=== PATIENT | female | born 1945 | race Caucasian/White ===

== ENCOUNTER → 2016-03-20 | Outpatient (CLI) | payer OTHER, BC ==
[2016-03-20 18:01] LABS: URINE APPEARANCE CLEAR (CLEAR); URINE BILIRUBIN NEG (NEG); URINE COLOR YELLOW; URINE NITRITE NEG (NEG); URINE PH 5.5 (4.5-7.5); URINE SPECIFIC GRAVITY 1.007 (1.000-1.030); UROBILINOGEN NEG (NEG)
[2016-03-20 18:03] LABS: MANUAL MICROSCOPIC REQUIRED? NO; REVIEW REQ? YES
== END | disposition home or self-care (01) ==
LOC: C.LABMFLN 10:59
PROVIDERS: ATTEND Family Medicine
DX: R35.0 Frequency of micturition (principal); R30.0 Dysuria

== ENCOUNTER → 2016-06-19 | Outpatient (CLI) | payer OTHER, BC ==
[2016-06-19 13:37] LABS: URINE APPEARANCE CLEAR (CLEAR); URINE BILIRUBIN NEG (NEG); URINE COLOR YELLOW; URINE NITRITE NEG (NEG); URINE SPECIFIC GRAVITY 1.009 (1.000-1.030); UROBILINOGEN NEG (NEG)
[2016-06-19 13:41] LABS: MANUAL MICROSCOPIC REQUIRED? NO; REVIEW REQ? NO
== END | disposition home or self-care (01) ==
LOC: C.LABMFLN 13:39
PROVIDERS: ATTEND Family Medicine
DX: R35.0 Frequency of micturition (principal)

== ENCOUNTER → 2016-08-01 | Outpatient (CLI) | payer OTHER, BC ==
[2016-08-01 18:11] LABS: HEMATOCRIT 25.8 % (37-47)
== END | disposition home or self-care (01) ==
LOC: C.LABMFLN 13:18
PROVIDERS: ATTEND Family Medicine
DX: D50.9 Iron deficiency anemia, unspecified (principal); K75.81 Nonalcoholic steatohepatitis (NASH)

== ENCOUNTER → 2016-08-14 | Outpatient (CLI) | payer OTHER, BC ==
[2016-08-14 13:05] LABS: HEMATOCRIT 28.2 % (37-47)
== END | disposition home or self-care (01) ==
LOC: C.LABMFLN 08:58
PROVIDERS: ATTEND Family Medicine
DX: D50.9 Iron deficiency anemia, unspecified (principal); K75.81 Nonalcoholic steatohepatitis (NASH)

== ENCOUNTER → 2016-09-10 | Outpatient (CLI) | payer OTHER, BC ==
[2016-09-10 13:27] LABS: HEMATOCRIT 28.4 % (37-47)
[2016-09-10 13:41] LABS: BLOOD UREA NITROGEN 12 mg/dl (7-18); BUN/CREATININE RATIO 15.8 (10-20); CALCIUM 8.5 mg/dl (8.5-10.1); CARBON DIOXIDE 26 mmol/L (21-32); CHLORIDE 108 mmol/L (98-107); CREATININE 0.76 mg/dl (0.60-1.20); GLUCOSE 100 mg/dl (70-99); POTASSIUM 3.5 mmol/L (3.5-5.1); SODIUM 141 mmol/L (136-145)
== END | disposition home or self-care (01) ==
LOC: C.LABMFLN 08:38
PROVIDERS: ATTEND Family Medicine
DX: D64.9 Anemia, unspecified (principal); D50.9 Iron deficiency anemia, unspecified; K75.81 Nonalcoholic steatohepatitis (NASH)

== ENCOUNTER → 2016-10-31 | Outpatient (CLI) | payer OTHER, BC ==
[2016-10-31 18:26] LABS: INR 1.7 (0.9-1.1); PARTIAL THROMBOPLASTIN RATIO 1.2; PROTHROMBIN TIME (PATIENT) 18.3 SECONDS (9.0-12.0)
[2016-10-31 18:53] LABS: ANISOCYTOSIS PRESENT; BASO % 0.2 %; BASO ABS # 0.03 K/uL (0-0.2); COMPLETE YES; EOS % 1.9 %; HEMATOCRIT 28.2 % (37-47); HYPOCHROMIA PRESENT; IG% 0.7 %; LYMPH % 4.7 %; LYMPH ABS # 0.64 K/uL (1.2-3.4); MEAN CELL VOLUME 90.1 fL (80-100); MEAN CORPUSCULAR HEMOGLOBIN 28.1 pg (25-34); MEAN CORPUSCULAR HGB CONC 31.2 g/dl (32-36); NEUT % 81.5 %; PLATELET COUNT 67 K/uL (130-400); PLT ESTIMATE DECREASED; POLYCHROMASIA 1+; RED BLOOD COUNT 3.13 M/uL (4.2-5.4); SCHISTOCYTES OCCASIONAL; WHITE BLOOD COUNT 13.58 K/uL (4.8-10.8)
[2016-10-31 19:17] LABS: ALB/GLOB RATIO 0.9 (0.9-2); ALKALINE PHOSPHATASE 196 U/L (45-117); ALT/SGPT 64 U/L (12-78); AST/SGOT 58 U/L (15-37); BLOOD UREA NITROGEN 13 mg/dl (7-18); BUN/CREATININE RATIO 11.7 (10-20); CALCIUM 9.1 mg/dl (8.5-10.1); CARBON DIOXIDE 34 mmol/L (21-32); CHLORIDE 102 mmol/L (98-107); GLUCOSE 49 mg/dl (70-99); POTASSIUM 3.8 mmol/L (3.5-5.1); SODIUM 139 mmol/L (136-145)
== END | disposition home or self-care (01) ==
LOC: C.LABMFLN 12:46
PROVIDERS: ATTEND Family Medicine
DX: E11.8 Type 2 diabetes mellitus with unspecified complications (principal); E03.9 Hypothyroidism, unspecified; K57.81 Diverticulitis of intestine, part unspecified, with perforation and abscess with bleeding; D50.9 Iron deficiency anemia, unspecified

== ENCOUNTER → 2016-11-18 | Outpatient (CLI) | payer OTHER, BC ==
--- NOTE | 2016-11-20 14:35 | CODING QUERY NO DIAGNOSIS ---
: 1945 TREATMENT RENDERED WITHOUT A DIAGNOSIS To promote full compliance with coding requirements relating to patient care, physician participation is requested in all cases of funnel setter uncertainty. Please assist us with providing a copy of the original, signed physician order including diagnoses for the following services that were rendered on 11/18/16: *SODIUM Thank you [facility] Information Management Once completed, please kindly fax back to [phone] For questions please call [phone]
== END | disposition home or self-care (01) ==
LOC: C.LABSPEC 14:20
PROVIDERS: ATTEND Family Medicine
DX: K75.81 Nonalcoholic steatohepatitis (NASH) (principal); K74.60 Unspecified cirrhosis of liver; R18.8 Other ascites

== ENCOUNTER → 2017-01-26 | Outpatient (CLI) | payer OTHER, BC ==
[2017-01-26 13:00] LABS: HEMATOCRIT 28.5 % (37-47); MEAN CELL VOLUME 94.7 fL (80-100); MEAN CORPUSCULAR HEMOGLOBIN 30.9 pg (25-34); MEAN CORPUSCULAR HGB CONC 32.6 g/dl (32-36); RED BLOOD COUNT 3.01 M/uL (4.2-5.4); WHITE BLOOD COUNT 11.22 K/uL (4.8-10.8)
[2017-01-26 13:04] LABS: MEAN PLATELET VOLUME 10.2 fL (7.4-10.4); PLATELET COUNT 91 K/uL (130-400)
[2017-01-26 13:46] LABS: ESTIMATED AVERAGE GLUCOSE 131 mg/dl; HA1C FLAG Normal (Normal)
[2017-01-26 14:13] LABS: ALT/SGPT 33 U/L (12-78); AST/SGOT 36 U/L (15-37); BLOOD UREA NITROGEN 19 mg/dl (7-18); BUN/CREATININE RATIO 20.5 (10-20); CALCIUM 8.9 mg/dl (8.5-10.1); CARBON DIOXIDE 28 mmol/L (21-32); CHLORIDE 100 mmol/L (98-107); CREATININE 0.93 mg/dl (0.60-1.20); GLUCOSE 144 mg/dl (70-99); POTASSIUM 3.5 mmol/L (3.5-5.1); SODIUM 136 mmol/L (136-145)
[2017-01-26 14:14] LABS: ALB/GLOB RATIO 0.7 (0.9-2); ALKALINE PHOSPHATASE 227 U/L (45-117)
== END | disposition home or self-care (01) ==
LOC: C.LABMFLN 09:16
PROVIDERS: ATTEND Family Medicine
DX: E78.00 Pure hypercholesterolemia, unspecified (principal); E03.9 Hypothyroidism, unspecified; E27.40 Unspecified adrenocortical insufficiency; D64.9 Anemia, unspecified; K72.90 Hepatic failure, unspecified without coma

== ENCOUNTER → 2017-03-11 | Outpatient (CLI) | payer OTHER, BC ==
[2017-03-11 17:48] LABS: HEMOGLOBIN 8.6 g/dL (12.0-16.0); MEAN CELL VOLUME 92.8 fL (80-100); MEAN CORPUSCULAR HEMOGLOBIN 29.6 pg (25-34); MEAN CORPUSCULAR HGB CONC 31.9 g/dl (32-36); RED CELL DISTRIBUTION WIDTH CV 17.9 % (11.5-14.5); RED CELL DISTRIBUTION WIDTH SD 61.4 fL (36.4-46.3); WHITE BLOOD COUNT 7.89 K/uL (4.8-10.8)
[2017-03-11 18:14] LABS: BASO % 0.3 %; BASO ABS # 0.02 K/uL (0-0.2); EOS % 1.5 %; EOS ABS # 0.12 K/uL (0-0.5); IG# 0.07 K/uL (0.00-0.02); LYMPH % 7.9 %; LYMPH ABS # 0.62 K/uL (1.2-3.4); MEAN PLATELET VOLUME 10.1 fL (7.4-10.4); MONO % 10.8 %; MONO ABS # 0.85 K/uL (0.11-0.59); NEUT % 78.6 %; NEUT ABS # 6.21 K/uL (1.4-6.5); PLATELET COUNT 69 K/uL (130-400)
[2017-03-11 18:47] LABS: ALBUMIN 2.5 gm/dl (3.4-5.0); ALKALINE PHOSPHATASE 771 U/L (45-117); ALT/SGPT 42 U/L (12-78); AST/SGOT 32 U/L (15-37); BLOOD UREA NITROGEN 16 mg/dl (7-18); CALCIUM 9.1 mg/dl (8.5-10.1); CARBON DIOXIDE 28 mmol/L (21-32); CREATININE 1.06 mg/dl (0.60-1.20); GLUCOSE 508 mg/dl (70-99); POTASSIUM 4.5 mmol/L (3.5-5.1); SODIUM 132 mmol/L (136-145)
== END | disposition home or self-care (01) ==
LOC: C.LABMFLN 16:01
PROVIDERS: ATTEND Family Medicine
DX: E78.00 Pure hypercholesterolemia, unspecified (principal); E03.9 Hypothyroidism, unspecified; D64.9 Anemia, unspecified; K72.90 Hepatic failure, unspecified without coma

== ENCOUNTER → 2017-09-08 | Outpatient (CLI) | payer OTHER, BC ==
[2017-09-08 17:59] LABS: MEAN CORPUSCULAR HGB CONC 30.8 g/dl (32-36)
[2017-09-08 18:15] LABS: ALBUMIN 2.4 gm/dl (3.4-5.0); ALKALINE PHOSPHATASE 190 U/L (45-117); ALT/SGPT 27 U/L (12-78); AST/SGOT 44 U/L (15-37); BLOOD UREA NITROGEN 16 mg/dl (7-18); CALCIUM 8.6 mg/dl (8.5-10.1); CARBON DIOXIDE 28 mmol/L (21-32); CREATININE 0.83 mg/dl (0.60-1.20); GLUCOSE 137 mg/dl (70-99); POTASSIUM 3.8 mmol/L (3.5-5.1); SODIUM 139 mmol/L (136-145); TOTAL PROTEIN 5.7 gm/dl (6.4-8.2)
[2017-09-08 18:29] LABS: BASO % 0.2 %; BASO ABS # 0.01 K/uL (0-0.2); EOS % 2.4 %; EOS ABS # 0.15 K/uL (0-0.5); HEMATOCRIT 30.8 % (37-47); HEMOGLOBIN 9.4 g/dL (12.0-16.0); IG# 0.03 K/uL (0.00-0.02); LYMPH % 11.3 %; LYMPH ABS # 0.72 K/uL (1.2-3.4); MEAN CELL VOLUME 87.7 fL (80-100); MEAN CORPUSCULAR HEMOGLOBIN 26.8 pg (25-34); MONO % 7.2 %; MONO ABS # 0.46 K/uL (0.11-0.59); NEUT % 78.4 %; NEUT ABS # 5.01 K/uL (1.4-6.5); PLATELET COUNT 46 K/uL (130-400); RED CELL DISTRIBUTION WIDTH SD 66.1 fL (36.4-46.3); WHITE BLOOD COUNT 6.38 K/uL (4.8-10.8)
== END | disposition home or self-care (01) ==
LOC: C.LABMFLN 12:28
PROVIDERS: ATTEND Family Medicine
DX: D50.9 Iron deficiency anemia, unspecified (principal); K72.90 Hepatic failure, unspecified without coma; K75.81 Nonalcoholic steatohepatitis (NASH); E10.65 Type 1 diabetes mellitus with hyperglycemia; R60.0 Localized edema; M85.80 Other specified disorders of bone density and structure, unspecified site

== ENCOUNTER → 2017-10-07 | Outpatient (CLI) | payer OTHER, BC ==
[2017-10-07 12:54] LABS: MEAN CORPUSCULAR HGB CONC 32.6 g/dl (32-36)
[2017-10-07 13:04] LABS: HEMATOCRIT 33.4 % (37-47); HEMOGLOBIN 10.9 g/dL (12.0-16.0); MEAN CELL VOLUME 97.1 fL (80-100); MEAN CORPUSCULAR HEMOGLOBIN 31.7 pg (25-34); RED CELL DISTRIBUTION WIDTH CV 21.3 % (11.5-14.5); RED CELL DISTRIBUTION WIDTH SD 75.5 fL (36.4-46.3); WHITE BLOOD COUNT 5.21 K/uL (4.8-10.8)
[2017-10-07 13:12] LABS: BLOOD UREA NITROGEN 15 mg/dl (7-18); CALCIUM 8.1 mg/dl (8.5-10.1); CARBON DIOXIDE 26 mmol/L (21-32); CREATININE 0.98 mg/dl (0.60-1.20); GLUCOSE 344 mg/dl (70-99); POTASSIUM 3.5 mmol/L (3.5-5.1); SODIUM 137 mmol/L (136-145)
[2017-10-07 13:23] LABS: PLATELET COUNT 56 K/uL (130-400)
[2017-10-07 13:26] LABS: BASO % 0.6 %; BASO ABS # 0.03 K/uL (0-0.2); EOS % 6.1 %; EOS ABS # 0.32 K/uL (0-0.5); IG# 0.03 K/uL (0.00-0.02); LYMPH % 14.6 %; LYMPH ABS # 0.76 K/uL (1.2-3.4); MONO % 10.9 %; MONO ABS # 0.57 K/uL (0.11-0.59); NEUT % 67.2 %
== END | disposition home or self-care (01) ==
LOC: C.LABMFLN 09:01
PROVIDERS: ATTEND Family Medicine
DX: D64.9 Anemia, unspecified (principal); K72.90 Hepatic failure, unspecified without coma; E55.9 Vitamin D deficiency, unspecified; M85.80 Other specified disorders of bone density and structure, unspecified site; E10.65 Type 1 diabetes mellitus with hyperglycemia

== ENCOUNTER 2019-07-24 22:07 | Inpatient (IN) ==
[2019-07-24] MEDS ORDERED: HYDROCORTISONE SOD SUCCINATE 100 MG/2 ML VIAL IV STA (22:20)
[2019-07-24 22:34] LABS: Appearance Urine Clear (Clear); Bacteria Urine Automated Negative (Negative); Bilirubin Urine Negative (Negative); Blood Urine 1+ (Negative); Color Urine Dark Yellow; Glucose Urine UA Negative (Negative); Ketones Urine Trace (Negative); Leukocyte Esterase Urine Negative (Negative); Nitrite Urine Negative (Negative); Protein Urine Negative (Negative); Specific Gravity Urine 1.016 (1.000-1.030); Urobilinogen Urine Negative (Negative); pH Urine 5.5 (4.5-7.5)
--- NOTE | 2019-07-24 22:34 | Emergency Department Note ---
History of Present Illness General Chief complaint: Illness Time Seen by Provider: 07/24/19 22:13 Source: patient and EMS Limitations: altered mental status History of Present Illness Provider complaint: Lethargy Onset (ago): day(s) Location: head Pain Consistency: + constant Quality: + other (Lethargic) Relieved By: + none Associated symptoms: no fever/chills and no nausea/vomiting This is a 73-year-old female brought in by EMS for lethargy. She is at [facility] and has been noted to be lethargic all day. They were concerned that she did not have a bowel movement because she is on lactulose for liver disease. There is no history of trauma. She has had no reported fevers or vomiting. The patient will answer some questions but largely ignores my questions. When I asked her how she felt she said she felt okay. She did not answer any further questions afterwards. Limited history due to the patient's altered mental status. Home Medications Home Medications Medication Instructions Recorded Confirmed Type blood sugar diagnostic #450 ea 08/05/18 07/24/19 Rx escitalopram oxalate 10 mg tablet 15 mg PO DAILY #135 tab 08/05/18 07/24/19 Rx fluticasone propionate 50 2 sprays INTRANASAL DAILY #18.2 gm 08/05/18 07/24/19 Rx mcg/actuation nasal spray,suspension rifaximin 550 mg tablet 550 mg PO BID #180 tab 08/27/18 07/24/19 Rx levothyroxine 50 mcg tablet 50 mcg PO DAILY #90 tab 09/09/18 07/24/19 Rx pantoprazole 40 mg tablet,delayed 40 mg PO BID #180 tab 10/27/18 07/24/19 Rx release cholecalciferol (vitamin D3) 50 2,000 units PO DAILY 10/29/18 07/24/19 History mcg (2,000 unit) capsule lactulose 10 gram/15 mL oral 40 ml PO QID btl 12/30/18 07/24/19 History solution pen needle, diabetic 31 gauge x #100 ea 01/17/19 07/24/19 Rx 3/16" sub-q insulin device, 40 unit #30 ea 02/10/19 07/24/19 Rx Oxygen Home #1 ea 07/07/19 07/24/19 Rx ferrous sulfate 325 mg (65 mg 325 mg PO BID #60 tab 07/07/19 07/24/19 Rx iron) tablet acetaminophen [Tylenol] 650 mg PO Q4 PRN 07/24/19 07/24/19 History docusate sodium 100 mg PO BID PRN 07/24/19 07/24/19 History furosemide [Lasix] 40 mg PO BID 07/24/19 07/24/19 History gabapentin 300 mg PO HS 07/24/19 07/24/19 History hydrocortisone 5 mg PO .QDINNER 07/24/19 07/24/19 History hydrocortisone [Cortef] 10 mg PO .QBREAKFAST 07/24/19 07/24/19 History insulin glargine [Lantus U-100 56 unit SUBCUT DAILY 07/24/19 07/24/19 History Insulin] insulin lispro protamin-lispro 18 unit SUBCUT TIDM 07/24/19 07/24/19 History [Humalog Mix 75-25(U-100)Insuln] insulin regular human [Humulin R 0 unit SUBCUT TIDM 07/24/19 07/24/19 History Regular U-100 Insuln] melatonin 6 mg PO HS 07/24/19 07/24/19 History nystatin 1 applic TOPICAL BID 07/24/19 07/24/19 History polyethylene glycol 3350 [Miralax] 17 g PO DAILY PRN 07/24/19 07/24/19 History sennosides-docusate sodium 1 tab PO DAILY PRN 07/24/19 07/24/19 History [Senna-S] spironolactone 50 mg PO BID 07/24/19 07/24/19 History zinc sulfate 220 mg PO DAILY 07/24/19 07/24/19 History Allergies Allergy/AdvReac Type Severity Reaction Status Date / Time midazolam [From Versed] Allergy Unknown Verified 07/24/19 23:05 montelukast [From Singulair] Allergy Unknown Verified 07/24/19 23:05 nitrofurantoin Allergy Unknown Verified 07/24/19 23:05 [From Macrodantin] Penicillins Allergy Unknown Verified 07/24/19 23:05 sulfamethoxazole Allergy Unknown Verified 07/24/19 23:05 [From Bactrim] terconazole [From Terazol 3] Allergy Unknown Verified 07/24/19 23:05 trimethoprim [From Bactrim] Allergy Unknown Verified 07/24/19 23:05 Penicillins Allergy Unknown Uncoded 07/24/19 23:05 Past Med/Surg History Medical History Adjustment disorder with mixed anxiety and depressed mood (Acute) Adrenal insufficiency, primary, autoimmune (Acute) Chronic low back pain Diabetes mellitus type 1, uncontrolled (Acute) Diabetic peripheral neuropathy associated with type 1 diabetes mellitus (Acute) Dyslipidemia (Acute) Esophageal varices (Acute) Fracture, sacrum/coccyx (Inactive) Gait disturbance, post-stroke (Acute) Hepatic encephalopathy (Acute) History of subarachnoid hemorrhage (Inactive) Hypothyroidism (Acute) Iron deficiency anemia (Acute) Iron deficiency anemia Mineral deficiency (Inactive) FISCHER (nonalcoholic steatohepatitis) (Acute) Obstructive sleep apnea (Acute) Osteoporotic compression fracture of spine (Acute) Recurrent UTI (Acute) Recurrent UTI Sepsis Type 2 diabetes mellitus Unspecified cirrhosis of liver (Acute) Vitamin D deficiency (Acute) Surgical History H/O: hysterectomy History of bladder surgery History of rectal surgery History of tubal ligation Hx of tonsillectomy Family History Father Colon cancer Mother Diabetes Renal failure Social History Preferred Language: Y[place] Communication Ability: Effective Visual Impairment: No Limitations Hearing Ability: Normal Halver Machine Operator Required: No Beliefs That Will Affect Care: None marital status: Current Living Situation: Spouse current occupational status: retired Feels Safe at Home: Declines to Answer Smoking Status: Unknown if ever smoked Hx Alcohol Use: No Hx Substance Use: No Childhood Exposure to Second-Hand Smoke: No Dental Care, Regularly: No Physical Activity Frequency: Does not Exercise Seatbelt Use: always Sunscreen Use: No Review of Systems See HPI for pertinent positives & negatives. Unobtainable due to cognitive status Physical Exam Vital Signs Vital Signs - 24 hr 07/24/19 22:10 07/24/19 22:15 Temperature 37.3 C Temperature Source Oral Pulse Rate 103 H Respiratory Rate 14 Blood Pressure 165/67 H Blood Pressure Mean 99 Blood Pressure Position Lying Pulse Oximetry 95 99 Oxygen Delivery Method Room Air Room Air Sepsis Recent Fever Within 48 Hours No Sepsis Action Taken by Nursing No Action Required The physical exam is limited due to the patient's condition. Constitutional: Vital signs reviewed. Eyes: Pupils are equal round reactive to light. Conjunctiva are noninjected. HENT: Normocephalic atraumatic. Respiratory: Clear to auscultation bilaterally. Breath sounds are equal bilaterally. Cardiovascular: Mild tachycardia heart rate 103. GI: Soft, distended and nontender. Bowel sounds are present. Musculoskeletal: No peripheral edema. Integumentary: No cyanosis. Neurological: The patient is somnolent but arousable. Answers occasional quest ions. Psychiatric: Unable to assess. Course Administered Medications Discontinued Medications Lactulose 200 gm/ Sterile Water 700 ml/ BARCODE IDENTIFIER 1 ea 0 gm [place] NOW STA Stop: 07/24/19 23:22 Last Admin: 07/24/19 23:51 Dose: 200 gm Documented by: [id number] Dextrose (Dextrose 50%) 25 ml IV NOW STA Stop: 07/24/19 23:22 Last Admin: 07/24/19 23:31 Dose: 25 ml Documented by: [id number] Hydrocortisone Sodium Succinate (Solu-Cortef) 100 mg IV NOW STA Stop: 07/24/19 22:21 Last Admin: 07/24/19 23:32 Dose: 100 mg Documented by: [id number] Critical Care Time Critical Care Time: Yes Total Critical Care Time: 35 I have personally spent approximately 35 minutes of critical care time in the direct management of this patient. This includes bedside care, interpretation of diagnostic studies, and testing, discussion with consultants, patient, and family members, and other required patient management activities. These minutes are in excess of all separately billable procedures. Medical Decision Making Differential Diagnosis Hepatic encephalopathy, ICH, CVA, adrenal crisis, UTI, pneumonia Medical Records Attestation: I reviewed the patient's medical records. The patient was recently admitted to the hospital last month at [facility] for altered mental status. She had a hemoglobin of 6 and was transfused 1 unit. She had a CT of her head which was negative. She does have a history of [place]'s disease. Home Medications Current Medication List: was personally reviewed by me Laboratory Data Attestation: I reviewed the patient's lab results. Result diagrams: 07/24/19 22:40 07/24/19 22:40 Lab Results 07/24/19 07/24/19 07/24/19 Range/Units 22:27 22:40 22:40 WBC (4.8-10.8) K/uL RBC (4.2-5.4) M/uL Hgb (12.0-16.0) g/dL Hct (37-47) % MCV (80-100) fL MCH (25-34) pg MCHC (32-36) g/dL RDW Std Deviation (36.4-46.3) fL RDW Coeff of Anastasia (11.5-14.5) % Plt Count (130-400) K/uL MPV (7.4-10.4) fL Immature Gran % (Auto) % Neut % (Auto) % Lymph % (Auto) % Morton % (Auto) % Eos % (Auto) % Baso % (Auto) % Immature Gran # (Auto) (0.00-0.02) K/uL Neut # (Auto) (1.4-6.5) K/uL Lymph # (Auto) (1.2-3.4) K/uL Morton # (Auto) (0.11-0.59) K/uL Eos # (Auto) (0-0.5) K/uL Baso # (Auto) (0-0.2) K/uL Anisocytosis Echinocytes PT (9.0-12.0) Seconds INR (0.9-1.1) Sodium 136 (136-145) mmol/L Potassium 4.6 (3.5-5.1) mmol/L Chloride 100 (98-107) mmol/L Carbon Dioxide 30 (21-32) mmol/L Anion Gap 6.0 (3-11) BUN 25 H (7-18) mg/dl Creatinine 1.67 H (0.6-1.2) mg/dl Est Cr Clr Drug Dosing 27.2 ml/min Est GFR ( Amer) 34.8 Est GFR (Non-Af Amer) 30.0 BUN/Creatinine Ratio 14.7 (10-20) Glucose 68 L (70-99) mg/dl POC Glucose (70-99) mg/dl Calcium 10.0 (8.5-10.1) mg/dl Magnesium 2.3 (1.8-2.4) mg/dl Total Bilirubin 4.6 H (0.2-1) mg/dl AST 79 H (15-37) U/L ALT 53 (12-78) U/L Alkaline Phosphatase 149 H (45-117) U/L Ammonia 192.6 H (11-32) umol/L Troponin I 0.033 (0-0.045) ng/ml Total Protein 5.7 L (6.4-8.2) gm/dl Albumin 2.0 L (3.4-5.0) gm/dl Globulin 3.7 (2.5-4.0) gm/dl Albumin/Globulin Ratio 0.5 L (0.9-2) TSH 27.900 H (0.300-4.500) uIu/ml Free T4 0.97 (0.8-1.6) ng/dl Specimen Hemolysis Cancelled Urine Color Dark Yellow Urine Appearance Clear (Clear) Urine pH 5.5 (4.5-7.5) Ur Specific [place] 1.016 (1.000-1.030) Urine Protein Negative (Negative) Urine Glucose (UA) Negative (Negative) Urine Ketones Trace H (Negative) Urine Blood 1+ H (Negative) Urine Nitrite Negative (Negative) Urine Bilirubin Negative (Negative) Urine Urobilinogen Negative (Negative) Ur Leukocyte Esterase Negative (Negative) Urine WBC (Auto) 1-5 (0-5) /hpf Urine RBC (Auto) 5-10 H (0-4) /hpf U Hyaline Cast (Auto) 1-5 (0-5) /lpf U Epithel Cells (Auto) 5-10 H (0-5) /lpf Urine Bacteria (Auto) Negative (Negative) 07/24/19 07/24/19 07/24/19 Range/Units 22:40 22:40 23:25 WBC 12.52 H (4.8-10.8) K/uL RBC 3.27 L (4.2-5.4) M/uL Hgb 10.7 L (12.0-16.0) g/dL Hct 32.1 L (37-47) % MCV 98.2 (80-100) fL MCH 32.7 (25-34) pg MCHC 33.3 (32-36) g/dL RDW Std Deviation 80.2 H (36.4-46.3) fL RDW Coeff of Anastasia 22.5 H (11.5-14.5) % Plt Count 66 L (130-400) K/uL MPV 10.8 H (7.4-10.4) fL Immature Gran % (Auto) 4.6 % Neut % (Auto) 76.8 % Lymph % (Auto) 5.7 % Morton % (Auto) 11.3 % Eos % (Auto) 1.3 % Baso % (Auto) 0.3 % Immature Gran # (Auto) 0.57 H (0.00-0.02) K/uL Neut # (Auto) 9.62 H (1.4-6.5) K/uL Lymph # (Auto) 0.71 L (1.2-3.4) K/uL Morton # (Auto) 1.42 H (0.11-0.59) K/uL Eos # (Auto) 0.16 (0-0.5) K/uL Baso # (Auto) 0.04 (0-0.2) K/uL Anisocytosis Present Echinocytes 1+ PT 17.9 H (9.0-12.0) Seconds INR 1.7 H (0.9-1.1) Sodium (136-145) mmol/L Potassium (3.5-5.1) mmol/L Chloride (98-107) mmol/L Carbon Dioxide (21-32) mmol/L Anion Gap (3-11) BUN (7-18) mg/dl Creatinine (0.6-1.2) mg/dl Est Cr Clr Drug Dosing ml/min Est GFR ( Amer) Est GFR (Non-Af Amer) BUN/Creatinine Ratio (10-20) Glucose (70-99) mg/dl POC Glucose 72 (70-99) mg/dl Calcium (8.5-10.1) mg/dl Magnesium (1.8-2.4) mg/dl Total Bilirubin (0.2-1) mg/dl AST (15-37) U/L ALT (12-78) U/L Alkaline Phosphatase (45-117) U/L Ammonia (11-32) umol/L Troponin I (0-0.045) ng/ml Total Protein (6.4-8.2) gm/dl Albumin (3.4-5.0) gm/dl Globulin (2.5-4.0) gm/dl Albumin/Globulin Ratio (0.9-2) TSH (0.300-4.500) uIu/ml Free T4 (0.8-1.6) ng/dl Specimen Hemolysis Urine Color Urine Appearance (Clear) Urine pH (4.5-7.5) Ur Specific [place] (1.000-1.030) Urine Protein (Negative) Urine Glucose (UA) (Negative) Urine Ketones (Negative) Urine Blood (Negative) Urine Nitrite (Negative) Urine Bilirubin (Negative) Urine Urobilinogen (Negative) Ur Leukocyte Esterase (Negative) Urine WBC (Auto) (0-5) /hpf Urine RBC (Auto) (0-4) /hpf U Hyaline Cast (Auto) (0-5) /lpf U Epithel Cells (Auto) (0-5) /lpf Urine Bacteria (Auto) (Negative) 07/24/19 Range/Units 23:46 WBC (4.8-10.8) K/uL RBC (4.2-5.4) M/uL Hgb (12.0-16.0) g/dL Hct (37-47) % MCV (80-100) fL MCH (25-34) pg MCHC (32-36) g/dL RDW Std Deviation (36.4-46.3) fL RDW Coeff of Anastasia (11.5-14.5) % Plt Count (130-400) K/uL MPV (7.4-10.4) fL Immature Gran % (Auto) % Neut % (Auto) % Lymph % (Auto) % Morton % (Auto) % Eos % (Auto) % Baso % (Auto) % Immature Gran # (Auto) (0.00-0.02) K/uL Neut # (Auto) (1.4-6.5) K/uL Lymph # (Auto) (1.2-3.4) K/uL Morton # (Auto) (0.11-0.59) K/uL Eos # (Auto) (0-0.5) K/uL Baso # (Auto) (0-0.2) K/uL Anisocytosis Echinocytes PT (9.0-12.0) Seconds INR (0.9-1.1) Sodium (136-145) mmol/L Potassium (3.5-5.1) mmol/L Chloride (98-107) mmol/L Carbon Dioxide (21-32) mmol/L Anion Gap (3-11) BUN (7-18) mg/dl Creatinine (0.6-1.2) mg/dl Est Cr Clr Drug Dosing ml/min Est GFR ( Amer) Est GFR (Non-Af Amer) BUN/Creatinine Ratio (10-20) Glucose (70-99) mg/dl POC Glucose 158 H (70-99) mg/dl Calcium (8.5-10.1) mg/dl Magnesium (1.8-2.4) mg/dl Total Bilirubin (0.2-1) mg/dl AST (15-37) U/L ALT (12-78) U/L Alkaline Phosphatase (45-117) U/L Ammonia (11-32) umol/L Troponin I (0-0.045) ng/ml Total Protein (6.4-8.2) gm/dl Albumin (3.4-5.0) gm/dl Globulin (2.5-4.0) gm/dl Albumin/Globulin Ratio (0.9-2) TSH (0.300-4.500) uIu/ml Free T4 (0.8-1.6) ng/dl Specimen Hemolysis Urine Color Urine Appearance (Clear) Urine pH (4.5-7.5) Ur Specific [place] (1.000-1.030) Urine Protein (Negative) Urine Glucose (UA) (Negative) Urine Ketones (Negative) Urine Blood (Negative) Urine Nitrite (Negative) Urine Bilirubin (Negative) Urine Urobilinogen (Negative) Ur Leukocyte Esterase (Negative) Urine WBC (Auto) (0-5) /hpf Urine RBC (Auto) (0-4) /hpf U Hyaline Cast (Auto) (0-5) /lpf U Epithel Cells (Auto) (0-5) /lpf Urine Bacteria (Auto) (Negative) Imaging Data Attestation: I personally reviewed and interpreted this imaging study as follows: My Impression: Chest x-ray per my interpretation shows no acute cardiopulmonary process. Radiologist's Impression: CT HEAD: No acute intracranial hemorrhage. No mass-effect or midline shift. No skull fracture. No loss of altamirano-white matter differentiation to suggest acute large vessel territory ischemia/infarction. Chronic small vessel ischemic changes and mild parenchymal volume loss. Radiologist: Wei Reaves MD Study ready at 23:05 and initial results transmitted at 23:08 ECG Data Attestation: I personally reviewed and interpreted this ECG as follows: Indication: + tachycardia Rate (beats per minute): 101 Rhythm: + sinus tachycardia ECG ST segments: no ST elevation ECG Findings: + Other (LVH); no PVCs Blood Pressure Blood Pressure Findings: Elevated blood pressure Blood Pressure Disposition: further management by hospitalist MDM Narrative I did provide prehospital medical command for the patient. I did evaluate the patient as noted above. History and physical are limited due to the patient's altered mental status. I did obtain additional history from the paramedics. The patient is somnolent but arousable and did speak to me very briefly. IV access was established. I did place an order for continuous cardiac monitoring. The monitor showed sinus tachycardia rate of 103. The patient does have a history of [place]'s disease. I did treat her with Solu-Cortef 100 mg IV. I did order and personally review the patient's 12-lead EKG as described above. Her twelve-lead EKG shows sinus tachycardia without any acute ischemia. I did order and personally reviewed the images of the patient's chest x-ray as described above. There is no evidence of pneumonia. I did order a urine analysis. She does not have a UTI. I did order and review the patient's blood work as noted in the electronic medical record. She has leukocytosis. She has anemia and thrombocytopenia. This is chronic. Her ammonia is 192. Creatinine is elevated as well. The patient could not take p.o. lactulose given her condition. I did not wish to put in an NG tube due to the possibility of esophageal varices. She previously had a hemoglobin of 6 at [facility]. She is also thrombocytopenic. I did order a lactulose enema. I did order a CT of the head. I did review the images myself as well as the radiology report as described above. There is no evidence of acute intracranial abnormality. I did discuss the test results with the patient's daughter who is now at the bedside. I did discuss the case with the hospitalist and machine adjuster leader case trim. Impression & Plan Acute hepatic encephalopathy, FISCHER (nonalcoholic steatohepatitis), Addisons disease, Anemia, Elevated serum creatinine, Hypoglycemia, Thrombocytopenia Discharge Plan Visit Data Chief Complaint: Illness ED Provider: Umer Rodriguez Discharge Problem: Acute hepatic encephalopathy, FISCHER (nonalcoholic steatohepatitis), Addisons disease, Anemia, Elevated serum creatinine, Hypoglycemia, Thrombocytopenia Forms Stand Alone Forms: My [facility]ale[employer]oscope Prescriptions Prescriptions: No Action rifaximin 550 mg tablet 550 mg PO BID Qty: 180 RF: 3 levothyroxine 50 mcg tablet 50 mcg PO DAILY Qty: 90 RF: 3 pantoprazole 40 mg tablet,delayed release (DR/EC) 40 mg PO BID Qty: 180 RF: 3 (DME) pen needle, diabetic [BD Ultra-Fine Mini Pen Needle] 31 gauge x 3/16" needle See Rx Instructions .ROUTE .MEDSUPPLY Qty: 100 RF: 5 (DME) V-GO 40 device See Dose Instructions .ROUTE .MEDSUPPLY Qty: 30 RF: 5 Hold Instructions: stopped escitalopram oxalate 10 mg tablet 15 mg PO DAILY Qty: 135 RF: 3 (DME) OneTouch Verio test strips strip See Dose Instructions .ROUTE .MEDSUPPLY Qty: 450 RF: 3 fluticasone propionate 50 mcg/actuation spray,suspension 2 sprays intranasal DAILY Qty: 18.2 RF: 3 cholecalciferol (vitamin D3) 2,000 unit capsule 2,000 units PO DAILY RF: 0 lactulose 10 gram/15 mL solution 40 ml PO QID RF: 0 (DME) Oxygen Home Liters Per Minute See Rx Instructions .ROUTE .MEDSUPPLY Qty: 1 RF: 0 ferrous sulfate 325 mg (65 mg iron) tablet 325 mg PO BID Qty: 60 RF: 0 hydrocortisone 5 mg Tablet 5 mg PO .QDINNER RF: 0 furosemide [Lasix] 40 mg Tablet 40 mg PO BID RF: 0 acetaminophen [Tylenol] 325 mg Tablet 650 mg PO Q4 PRN (Reason: Pain) RF: 0 Lantus U-100 Insulin 100 unit/mL Solution 56 unit SUBCUT DAILY RF: 0 polyethylene glycol 3350 [Miralax] 17 gram Powder In Packet 17 g PO DAILY PRN (Reason: Constipation) RF: 0 sennosides-docusate sodium [Senna-S] 8.6-50 mg Tablet 1 tab PO DAILY PRN (Reason: Constipation) RF: 0 zinc sulfate 220 mg Tablet 220 mg PO DAILY RF: 0 nystatin 100,000 unit/gram Cream 1 applic TOPICAL BID RF: 0 Humulin R Regular U-100 Insuln 100 unit/mL Solution 0 unit SUBCUT TIDM RF: 0 docusate sodium 100 mg Capsule 100 mg PO BID PRN (Reason: Constipation) RF: 0 gabapentin 300 mg Capsule 300 mg PO HS RF: 0 Humalog Mix 75-25(U-100)Insuln 100 unit/mL (75-25) Suspension 18 unit SUBCUT TIDM RF: 0 melatonin 3 mg Capsule 6 mg PO HS RF: 0 hydrocortisone [Cortef] 5 mg tablet 10 mg PO .QBREAKFAST RF: 0 spironolactone 25 mg tablet 50 mg PO BID RF: 0 Referrals Referrals: Stoney Nix MD [Primary Care Provider] - Discharge Problem: Anemia Qualifiers: Anemia type: unspecified type Qualified Code(s): D64.9 - Anemia, unspecified
[2019-07-24 22:52] LABS: Hematocrit (blood only) 32.1 % (37-47); Hemoglobin 10.7 g/dL (12.0-16.0); Mean Corpuscular Hemoglobin 32.7 pg (25-34); Mean Corpuscular Hgb Conc 33.3 g/dL (32-36); Mean Corpuscular Volume 98.2 fL (80-100); Mean Platelet Volume 10.8 fL (7.4-10.4); Platelet Count 66 K/uL (130-400); RDW Coefficient of Variation 22.5 % (11.5-14.5); RDW Standard Deviation 80.2 fL (36.4-46.3); Red Blood Count 3.27 M/uL (4.2-5.4); White Blood Count 12.52 K/uL (4.8-10.8)
[2019-07-24 22:57] LABS: INR 1.7 (0.9-1.1); Prothrombin Time 17.9 Seconds (9.0-12.0)
[2019-07-24 23:05] LABS: Anisocytosis Present; Basophils # (auto) 0.04 K/uL (0-0.2); Basophils % (auto) 0.3 %; Echinocytes 1+; Eosinophils # (auto) 0.16 K/uL (0-0.5); Eosinophils % (auto) 1.3 %; Immature Granulocytes # (auto) 0.57 K/uL (0.00-0.02); Immature Granulocytes % (auto) 4.6 %; Lymphocytes # (auto) 0.71 K/uL (1.2-3.4); Lymphocytes % (auto) 5.7 %; Monocytes # (auto) 1.42 K/uL (0.11-0.59); Monocytes % (auto) 11.3 %; Neutrophils # (auto) 9.62 K/uL (1.4-6.5); Neutrophils % (auto) 76.8 %
[2019-07-24 23:09] LABS: BUN Creatinine Ratio 14.7 (10-20); Creatinine Clr Calc Pharmacy 27.2 ml/min; Est GFR (African American) 34.8; Magnesium 2.3 mg/dl (1.8-2.4); Potassium 4.6 mmol/L (3.5-5.1)
[2019-07-24 23:21] LABS: Albumin Globulin Ratio 0.5 (0.9-2); Bilirubin,Total 4.6 mg/dl (0.2-1); Globulin 3.7 gm/dl (2.5-4.0); Thyroid Stimulating Hormone 27.9 uIu/ml (0.300-4.500); Total Protein 5.7 gm/dl (6.4-8.2); Troponin I 0.033 ng/ml (0-0.045)
[2019-07-24] MEDS ORDERED: DEXTROSE 50% 50 ML SYRINGE IV STA (23:21)
[2019-07-24] MEDS ORDERED: LACTULOSE 200 GM, WATER, STERILE IRRIG 700 ML, BARCODE IDENTIFIER 1 EA PR STA (23:21)
[2019-07-24 23:38] LABS: T4 Free Thyroxine 0.97 ng/dl (0.8-1.6)
--- NOTE | 2019-07-25 00:49 | History & Physical Report ---
Date of Service July 25, 2019 Assessment & Plan (1) Acute hepatic encephalopathy: 73yo C female with cirrhosis of the liver secondary to FISCHER presenting with acute hepatic encephalopathy. NEURO: GSC currently 9 in setting of acute hepatic encephalopathy, hypoglycemia, renal insufficiency. -Treatment of acute medical issues as below -Frequent orientation to location/time/situation -Avoid delirium inducing agents and hepatotoxins -Continue escitalopram 15mg po daily when patient able to take PO PULMONARY: Adequate oxygenation on room air with no evidence of respiratory distress. CXR appears hypoinflated but no obvious pathology. Patient is protecting airway. -Continue to monitor -Supplemental O2 as needed to maintain O2 saturation >92% CARDIOVASCULAR: Patient mildly hypertensive and tachycardic at present. Troponin detectable within normal range -Continue to monitor -Repeat troponin with AM labs GASTROINTESTINAL: Patient with cirrhosis secondary to FISCHER, s/p TIPS procedure in 2013 with revision in 2016 at [facility]. Daughter reports no further issues with esophageal varices or ascites following the TIPS procedure. 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 Was previously being worked up for transplant, however, daughter states this is no longer the plan due to patient's declining health and debility. She is on lactulose at home, titrated to 3-4 soft BMs daily as well as Rifaximin. Daugher reports patient required some extra lactulose on 07/22/19 and no BM yesterday. Ammonia = 192.6. Remainder of liver panel, INR and platelets are similar to prior. -Admit to MICU -Continue Lactulose enemas -Trend ammonia levels -Continue Rifaximin 550mg PO BID. -Hold Lasix and Aldactone for now as patient appears clinically dry, mild increase in BUN/Cr from prior -Continue Zinc -GI consulted per daughter's request - patient is well known to Dr. Klein GENITOURINARY - mildly elevated BUN/Cr. Patient appears to be dry on exam, suspect pre-renal cause rather than hepatorenal syndrome, ATN -Monitor BUN/Cr/electrolytes and UOP -Avoid nephrotoxic agents -Renal dosing where needed HEMATOLOGY - patient with thrombocytopenia, Plt=66. No active bleeding -Continue to monitor ENDOCRINE - Patient with hypothyroidism, adrenal insufficiency and poorly controlled DM. She had some mild hypoglycemia in the ER which responded well to Dextrose. HD stable, no evidence of adrenal crisis at this time. TSH markedly elevated with normal T4 -Will hold PO hydrocortisone and provide stress-dosed IV Hydrocortisone for now. 100mg IV q 8. First dose given in ER -Continue Synthroid 50mcg po daily -Blood sugar q 1 hour, will hold on Dextrose infusion for now given JTB=178, recent IV steroid use -Hyperglycemia protocol per MICU ID - Afebrile, HD stable. +Leukocytosis with WBC=12.52, neutrophil predominant with immature cells. UA and CXR does not suggest infection. 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 (6) Hypothyroidism: Present on Admission?: Yes (7) Type 2 diabetes mellitus: Present on Admission?: Yes (8) Dyslipidemia: Present on Admission?: Yes (9) Adjustment disorder with mixed anxiety and depressed mood: Present on Admission?: Yes Admission and Anticipated Discharge Date Admission Date: 07/25/19 Anticipated date of discharge: 07/29/19 History of Present Illness Chief Complaint: Obtunded Primary Care Provider: Stoney Nix MD Naa Duarte is a 73yo C female with history of poorly controlled DM-II, FISCHER with cirrhosis, esophageal varices and GAVE, s/p TIPS procedure performed in 2013 with revision in 2016, Addrenal insufficiency, Hypothyroidism presenting with hepatic encephalopathy. Patient obtunded, unable to provide details of history or participate in physical exam. History obtained from daughter at bedside, chart review and discussion with ER staff. Patient was living independently with minimal assistance from a caregiver until recently when she had a mechanical fall x 2. She was placed in rehab at [facility] on July 13. She had been doing fairly well until yesterday when she started becoming confused and less conversive. Her son called her as well as other family members and reported that patient was lethargic/confused and not acting herself. The patient's daughter called [facility] and requested transfer to the hospital. Patient had an episode of non- bloody/nonbilious emesis in the ER. No additional complaints. Specifically, no report of fever/chills/SOB/cough/abdominal pain/diarrhea or constipation. Patient had not eaten much yesterday during the day. She takes lactulose at home and titrates to 3-4 soft bowel movements daily as well as Rifaximin. Daughter states that staff reported normal BMs but no BM yesterday. ER Course: Dextrose 25mL, Hydrocortisone 100mg IV, Lactulose enema Allergies Allergy/AdvReac Type Severity Reaction Status Date / Time midazolam [From Versed] Allergy Unknown Verified 07/24/19 23:05 montelukast [From Singulair] Allergy Unknown Verified 07/24/19 23:05 nitrofurantoin Allergy Unknown Verified 07/24/19 23:05 [From Macrodantin] Penicillins Allergy Unknown Verified 07/24/19 23:05 sulfamethoxazole Allergy Unknown Verified 07/24/19 23:05 [From Bactrim] terconazole [From Terazol 3] Allergy Unknown Verified 07/24/19 23:05 trimethoprim [From Bactrim] Allergy Unknown Verified 07/24/19 23:05 Home Medications Home Medications Medication Instructions Recorded Confirmed Type blood sugar diagnostic #450 ea 08/05/18 07/24/19 Rx escitalopram oxalate 10 mg tablet 15 mg PO DAILY #135 tab 08/05/18 07/24/19 Rx fluticasone propionate 50 2 sprays INTRANASAL DAILY #18.2 gm 08/05/18 07/24/19 Rx mcg/actuation nasal spray,suspension rifaximin 550 mg tablet 550 mg PO BID #180 tab 08/27/18 07/24/19 Rx levothyroxine 50 mcg tablet 50 mcg PO DAILY #90 tab 09/09/18 07/24/19 Rx pantoprazole 40 mg tablet,delayed 40 mg PO BID #180 tab 10/27/18 07/24/19 Rx release cholecalciferol (vitamin D3) 50 2,000 units PO DAILY 10/29/18 07/24/19 History mcg (2,000 unit) capsule lactulose 10 gram/15 mL oral 40 ml PO QID btl 12/30/18 07/24/19 History solution pen needle, diabetic 31 gauge x #100 ea 01/17/19 07/24/19 Rx 3/16" sub-q insulin device, 40 unit #30 ea 02/10/19 07/24/19 Rx Oxygen Home #1 ea 07/07/19 07/24/19 Rx ferrous sulfate 325 mg (65 mg 325 mg PO BID #60 tab 07/07/19 07/24/19 Rx iron) tablet acetaminophen [Tylenol] 650 mg PO Q4 PRN 07/24/19 07/24/19 History docusate sodium 100 mg PO BID PRN 07/24/19 07/24/19 History furosemide [Lasix] 40 mg PO BID 07/24/19 07/24/19 History gabapentin 300 mg PO HS 07/24/19 07/24/19 History hydrocortisone 5 mg PO .QDINNER 07/24/19 07/24/19 History hydrocortisone [Cortef] 10 mg PO .QBREAKFAST 07/24/19 07/24/19 History insulin glargine [Lantus U-100 56 unit SUBCUT DAILY 07/24/19 07/24/19 History Insulin] insulin lispro protamin-lispro 18 unit SUBCUT TIDM 07/24/19 07/24/19 History [Humalog Mix 75-25(U-100)Insuln] insulin regular human [Humulin R 0 unit SUBCUT TIDM 07/24/19 07/24/19 History Regular U-100 Insuln] melatonin 6 mg PO HS 07/24/19 07/24/19 History nystatin 1 applic TOPICAL BID 07/24/19 07/24/19 History polyethylene glycol 3350 [Miralax] 17 g PO DAILY PRN 07/24/19 07/24/19 History sennosides-docusate sodium 1 tab PO DAILY PRN 07/24/19 07/24/19 History [Senna-S] spironolactone 50 mg PO BID 07/24/19 07/24/19 History zinc sulfate 220 mg PO DAILY 07/24/19 07/24/19 History Past Med/Surg History Medical History (Updated 07/25/19 @ 01:59 by Bela Farmer DO) Adjustment disorder with mixed anxiety and depressed mood (Acute) Adrenal insufficiency, primary, autoimmune (Acute) Chronic low back pain Diabetic peripheral neuropathy associated with type 1 diabetes mellitus (Acute) Dyslipidemia (Acute) Esophageal varices (Acute) Fracture, sacrum/coccyx (Inactive) Gait disturbance, post-stroke (Acute) Hepatic encephalopathy (Acute) History of subarachnoid hemorrhage (Inactive) Hypothyroidism (Acute) Iron deficiency anemia (Acute) Iron deficiency anemia Mineral deficiency (Inactive) FISCHER (nonalcoholic steatohepatitis) (Acute) Obstructive sleep apnea (Acute) Osteoporotic compression fracture of spine (Acute) Recurrent UTI (Acute) Recurrent UTI Sepsis Type 2 diabetes mellitus Unspecified cirrhosis of liver (Acute) Vitamin D deficiency (Acute) Surgical History H/O: hysterectomy History of bladder surgery History of rectal surgery History of tubal ligation Hx of tonsillectomy Family History Father Colon cancer Mother Diabetes Renal failure Social History Preferred Language: Korean Communication Ability: Effective Visual Impairment: No Limitations Hearing Ability: Normal Accounting Teacher Required: No Beliefs That Will Affect Care: None marital status: Current Living Situation: Spouse current occupational status: retired Feels Safe at Home: Declines to Answer Smoking Status: Unknown if ever smoked Hx Alcohol Use: No Hx Substance Use: No Childhood Exposure to Second-Hand Smoke: No Dental Care, Regularly: No Physical Activity Frequency: Does not Exercise Seatbelt Use: always Sunscreen Use: No Review of Systems Review of Systems: Unobtainable due to reduced consciousness Physical Exam Physical Exam: General: patient obtunded, opens eyes to repeated verbal stimuli as well as noxious stimuli, does not answer questions or follow commands Skin: warm, dry, intact, +telangiectasias on anterior chest wall HEENT: NC/AT, PERRL, mild scleral icterus, conjunctiva without injection, external ear normal to inspection and nontender, nares patent, dry mucus membranes, dentition intact, no oropharyngeal lesions, neck supple, trachea midline, no LAD, no thyromegaly, no JVD Heart: +S1/S2, regular, no m/r/g Lungs: equal air entry bilaterally, no rales/rhonchi/wheezes Abd: +BS diminished, soft, mildly distended, NT, no masses/organomegaly/ascites Ext: warm, 2+ pulses in UE/LE bilaterally, no clubbing/cyanosis, 1+ pitting edema Neuro: obtunded as above, patient opens eyes to verbal and noxious stimuli Results & Data Results & Data ([facility]) Vital Signs (Past 12 Hours) Vital Signs Temp Pulse Resp BP Pulse Ox 07/24/19 22:15 37.3 C 103 H 14 165/67 H 99 07/24/19 22:10 95 Laboratory Results Lab Results 07/24/19 07/24/19 07/24/19 Range/Units 22:27 22:40 22:40 WBC (4.8-10.8) K/uL RBC (4.2-5.4) M/uL Hgb (12.0-16.0) g/dL Hct (37-47) % MCV (80-100) fL MCH (25-34) pg MCHC (32-36) g/dL RDW Std Deviation (36.4-46.3) fL RDW Coeff of Anastasia (11.5-14.5) % Plt Count (130-400) K/uL MPV (7.4-10.4) fL Immature Gran % (Auto) % Neut % (Auto) % Lymph % (Auto) % Gilchrist % (Auto) % Eos % (Auto) % Baso % (Auto) % Immature Gran # (Auto) (0.00-0.02) K/uL Neut # (Auto) (1.4-6.5) K/uL Lymph # (Auto) (1.2-3.4) K/uL Gilchrist # (Auto) (0.11-0.59) K/uL Eos # (Auto) (0-0.5) K/uL Baso # (Auto) (0-0.2) K/uL Anisocytosis Echinocytes PT (9.0-12.0) Seconds INR (0.9-1.1) Sodium 136 (136-145) mmol/L Potassium 4.6 (3.5-5.1) mmol/L Chloride 100 (98-107) mmol/L Carbon Dioxide 30 (21-32) mmol/L Anion Gap 6.0 (3-11) BUN 25 H (7-18) mg/dl Creatinine 1.67 H (0.6-1.2) mg/dl Est Cr Clr Drug Dosing 27.2 ml/min Est GFR ( Amer) 34.8 Est GFR (Non-Af Amer) 30.0 BUN/Creatinine Ratio 14.7 (10-20) Glucose 68 L (70-99) mg/dl POC Glucose (70-99) mg/dl Calcium 10.0 (8.5-10.1) mg/dl Magnesium 2.3 (1.8-2.4) mg/dl Total Bilirubin 4.6 H (0.2-1) mg/dl AST 79 H (15-37) U/L ALT 53 (12-78) U/L Alkaline Phosphatase 149 H (45-117) U/L Ammonia 192.6 H (11-32) umol/L Troponin I 0.033 (0-0.045) ng/ml Total Protein 5.7 L (6.4-8.2) gm/dl Albumin 2.0 L (3.4-5.0) gm/dl Globulin 3.7 (2.5-4.0) gm/dl Albumin/Globulin Ratio 0.5 L (0.9-2) TSH 27.900 H (0.300-4.500) uIu/ml Free T4 0.97 (0.8-1.6) ng/dl Specimen Hemolysis Cancelled Urine Color Dark Yellow Urine Appearance Clear (Clear) Urine pH 5.5 (4.5-7.5) Ur Specific Brockton 1.016 (1.000-1.030) Urine Protein Negative (Negative) Urine Glucose (UA) Negative (Negative) Urine Ketones Trace H (Negative) Urine Blood 1+ H (Negative) Urine Nitrite Negative (Negative) Urine Bilirubin Negative (Negative) Urine Urobilinogen Negative (Negative) Ur Leukocyte Esterase Negative (Negative) Urine WBC (Auto) 1-5 (0-5) /hpf Urine RBC (Auto) 5-10 H (0-4) /hpf U Hyaline Cast (Auto) 1-5 (0-5) /lpf U Epithel Cells (Auto) 5-10 H (0-5) /lpf Urine Bacteria (Auto) Negative (Negative) 07/24/19 07/24/19 07/24/19 Range/Units 22:40 22:40 23:25 WBC 12.52 H (4.8-10.8) K/uL RBC 3.27 L (4.2-5.4) M/uL Hgb 10.7 L (12.0-16.0) g/dL Hct 32.1 L (37-47) % MCV 98.2 (80-100) fL MCH 32.7 (25-34) pg MCHC 33.3 (32-36) g/dL RDW Std Deviation 80.2 H (36.4-46.3) fL RDW Coeff of Anastasia 22.5 H (11.5-14.5) % Plt Count 66 L (130-400) K/uL MPV 10.8 H (7.4-10.4) fL Immature Gran % (Auto) 4.6 % Neut % (Auto) 76.8 % Lymph % (Auto) 5.7 % Gilchrist % (Auto) 11.3 % Eos % (Auto) 1.3 % Baso % (Auto) 0.3 % Immature Gran # (Auto) 0.57 H (0.00-0.02) K/uL Neut # (Auto) 9.62 H (1.4-6.5) K/uL Lymph # (Auto) 0.71 L (1.2-3.4) K/uL Gilchrist # (Auto) 1.42 H (0.11-0.59) K/uL Eos # (Auto) 0.16 (0-0.5) K/uL Baso # (Auto) 0.04 (0-0.2) K/uL Anisocytosis Present Echinocytes 1+ PT 17.9 H (9.0-12.0) Seconds INR 1.7 H (0.9-1.1) Sodium (136-145) mmol/L Potassium (3.5-5.1) mmol/L Chloride (98-107) mmol/L Carbon Dioxide (21-32) mmol/L Anion Gap (3-11) BUN (7-18) mg/dl Creatinine (0.6-1.2) mg/dl Est Cr Clr Drug Dosing ml/min Est GFR ( Amer) Est GFR (Non-Af Amer) BUN/Creatinine Ratio (10-20) Glucose (70-99) mg/dl POC Glucose 72 (70-99) mg/dl Calcium (8.5-10.1) mg/dl Magnesium (1.8-2.4) mg/dl Total Bilirubin (0.2-1) mg/dl AST (15-37) U/L ALT (12-78) U/L Alkaline Phosphatase (45-117) U/L Ammonia (11-32) umol/L Troponin I (0-0.045) ng/ml Total Protein (6.4-8.2) gm/dl Albumin (3.4-5.0) gm/dl Globulin (2.5-4.0) gm/dl Albumin/Globulin Ratio (0.9-2) TSH (0.300-4.500) uIu/ml Free T4 (0.8-1.6) ng/dl Specimen Hemolysis Urine Color Urine Appearance (Clear) Urine pH (4.5-7.5) Ur Specific Brock[place] (1.000-1.030) Urine Protein (Negative) Urine Glucose (UA) (Negative) Urine Ketones (Negative) Urine Blood (Negative) Urine Nitrite (Negative) Urine Bilirubin (Negative) Urine Urobilinogen (Negative) Ur Leukocyte Esterase (Negative) Urine WBC (Auto) (0-5) /hpf Urine RBC (Auto) (0-4) /hpf U Hyaline Cast (Auto) (0-5) /lpf U Epithel Cells (Auto) (0-5) /lpf Urine Bacteria (Auto) (Negative) 07/24/19 Range/Units 23:46 WBC (4.8-10.8) K/uL RBC (4.2-5.4) M/uL Hgb (12.0-16.0) g/dL Hct (37-47) % MCV (80-100) fL MCH (25-34) pg MCHC (32-36) g/dL RDW Std Deviation (36.4-46.3) fL RDW Coeff of Anastasia (11.5-14.5) % Plt Count (130-400) K/uL MPV (7.4-10.4) fL Immature Gran % (Auto) % Neut % (Auto) % Lymph % (Auto) % Gilchrist % (Auto) % Eos % (Auto) % Baso % (Auto) % Immature Gran # (Auto) (0.00-0.02) K/uL Neut # (Auto) (1.4-6.5) K/uL Lymph # (Auto) (1.2-3.4) K/uL Gilchrist # (Auto) (0.11-0.59) K/uL Eos # (Auto) (0-0.5) K/uL Baso # (Auto) (0-0.2) K/uL Anisocytosis Echinocytes PT (9.0-12.0) Seconds INR (0.9-1.1) Sodium (136-145) mmol/L Potassium (3.5-5.1) mmol/L Chloride (98-107) mmol/L Carbon Dioxide (21-32) mmol/L Anion Gap (3-11) BUN (7-18) mg/dl Creatinine (0.6-1.2) mg/dl Est Cr Clr Drug Dosing ml/min Est GFR ( Amer) Est GFR (Non-Af Amer) BUN/Creatinine Ratio (10-20) Glucose (70-99) mg/dl POC Glucose 158 H (70-99) mg/dl Calcium (8.5-10.1) mg/dl Magnesium (1.8-2.4) mg/dl Total Bilirubin (0.2-1) mg/dl AST (15-37) U/L ALT (12-78) U/L Alkaline Phosphatase (45-117) U/L Ammonia (11-32) umol/L Troponin I (0-0.045) ng/ml Total Protein (6.4-8.2) gm/dl Albumin (3.4-5.0) gm/dl Globulin (2.5-4.0) gm/dl Albumin/Globulin Ratio (0.9-2) TSH (0.300-4.500) uIu/ml Free T4 (0.8-1.6) ng/dl Specimen Hemolysis Urine Color Urine Appearance (Clear) Urine pH (4.5-7.5) Ur Specific [place] (1.000-1.030) Urine Protein (Negative) Urine Glucose (UA) (Negative) Urine Ketones (Negative) Urine Blood (Negative) Urine Nitrite (Negative) Urine Bilirubin (Negative) Urine Urobilinogen (Negative) Ur Leukocyte Esterase (Negative) Urine WBC (Auto) (0-5) /hpf Urine RBC (Auto) (0-4) /hpf U Hyaline Cast (Auto) (0-5) /lpf U Epithel Cells (Auto) (0-5) /lpf Urine Bacteria (Auto) (Negative) Diagnostic Findings CT Head - Per STAT-rad: no acute intracranial hemorrhage. No mass effect or midline shift. No skull fracture. No loss of altamirano-white matter differentiation to suggest acute large vessel territory ischemia/infarction. Chronic small vessel ischemic changes and mild parenchymal volume loss. ECG Additional Comments: ST at 101bpm, leftward axis, DB=393, QRS=80, OLc=289 Code Status & VTE Plan Code Status FULL CODE Critical Care Time Critical Care Time: Yes Total Critical Care Time: 65 PG Care Time/CCT Total # of Minutes Spent Total Time Spent with Patient: Total time spent is greater than 50% in coordination of care (as documented) at patient's floor/unit and/or counseling patient: Critical Care Time: Yes Total Critical Care Time: 65 Coding Level of Care Code None Diagnoses Acute hepatic encephalopathy K72.00 Elevated serum creatinine R79.89 Hypoglycemia E16.2 Liver cirrhosis K74.60 Addisons disease E27.1 Hypothyroidism E03.9 Type 2 diabetes mellitus E11.9 Dyslipidemia E78.5 Adjustment disorder with mixed anxiety and depressed mood F43.23 Additional Codes Critical Care Time - Critical Care Time: Yes ([id number])
[2019-07-25] MEDS ORDERED: HYDROCORTISONE SOD SUCCINATE 100 MG/2 ML VIAL IV SCH (01:59)
[2019-07-25] MEDS ORDERED: ICU PROTOCOL FOR HYPERGLYCEMIA PRN (01:59)
[2019-07-25] MEDS ORDERED: NORMOSOL-R 1,000 ML IV SCH (01:59)
--- NOTE | 2019-07-25 02:18 | Critical Care Consultation ---
Date of Consultation July 25, 2019 Assessment & Plan (1) Acute hepatic encephalopathy: Impression: 73-year-old female with Leos cirrhosis presents admitted to the ICU with grade 3 hepatic encephalopathy Neuro - Acute hepatic encephalopathy, grade 3ammonia level 196, patient obtunded and confused -Patient was found to be hypoglycemic but mental state did not improve following dextrose infusion and euglycemia -CT head negative -Patient takes lactulose and rifaximin at home for 3-4 BM goal per day -Continue lactulose enemas every 8 hours for now -GI consulted -Trend ammonia -Admitted to ICU for close monitoring Cardiac - Currently normotensive without need for vasopressors Troponin 0.033 Normal sinus rhythm on monitor Continue to monitor on telemetry Respiratory - Currently maintaining sats on room air, protecting airway, lungs clear to auscultation No history of pulmonary disease Continue to monitor on pulse ox GI - N.p.o. until encephalopathy improves, would not insert NG tube due to history of varices/GATE/GI bleed Leos cirrhosis/chronic liver failurestatus post TIPS procedure 2012 with revision 2015 -Follows with Dr. Klein, [facility] GI consulted -History of esophageal varices, reported by daughter to be a nonissue since TIPS, continue PPI -Patient no longer pursuing liver transplant per daughter -LFTs and INR similar to prior admissions -Continue home med regimen when able to take p.o. -Trend LFTs, monitor RENAL/LYTES - CARIE on CKDsuspect that this is prerenal as patient appears to be dehydrated, no suspicion for hepatorenal syndrome at this time as patient has had hypertensive blood pressures -We will give IV fluid for euvolemic goal -Continue to trend with BMPs -Avoid nephrotoxins Monitor electrolytes and replete as necessary - Foleystrict I's and O's ENDO - DM type II/hypoglycemiauncontrolled with last hemoglobin A1c 8.3 from last month -Presents with hypoglycemia on this admission, unsure if this is related to liver failure insulin dosing -Initially corrected in the ER with dextrose infusion, remains euglycemic at this time -We will continue to monitor every hour for now, no additional dextrose infusion needed so far -We will transition to basal bolus/sliding scale when appropriate and ICU hyperglycemic protocol Hypothyroidelevated TSH with normal T4 -continue Synthroid Adrenal insufficiencypatient takes p.o. hydrocortisone home med, transition to stress dose IV hydrocortisone in the ED, will continue for now HEME - Chronic anemiahemoglobin stable and relative the baseline -Continue to monitor and transfuse if indicated -Continue iron when able to take p.o. Chronic thrombocytopeniaplatelet count at baseline from prior admission -No signs of active bleeding -Continue to monitor for now ID - No evidence of active infection at this time, however given disease process will start on empiric Rocephin for SBP coverage for the time being Blood cultures pending, UA unremarkable LINES/IV ACCESS - PIV's DVT PROPHYLAXIS - SCDs CODE STATUS: Full code I have personally spent 45 minutes of critical care time in the direct management of this patient. This is a life/limb threatening event. This includes time spent evaluating patient, direct bedside care, chart review, placing orde rs, interpretation of diagnostic studies, discussion with consultants, patient, and family members, as well as other required patient management activities. This time is exclusive of all separately billable procedures, and teaching time and separate from and in addition to any other critical care service time. Thank you for allowing us to participate in the care of this patient. Please refer to my attending physician's documentation for any further recommendations. (2) Anemia: (3) Elevated serum creatinine: (4) Hypoglycemia: (5) Thrombocytopenia: (6) Recurrent UTI: (7) Liver cirrhosis: (8) LEOS (nonalcoholic steatohepatitis): (9) Type 2 diabetes mellitus: (10) Esophageal varices: (11) Adrenal insufficiency, primary, autoimmune: History of Present Illness Attending Physician: Bela Farmer DO History of Present Illness Mrs. Duarte is a 73-year-old female past medical history of Leos cirrhosis, esophageal varices and GAVE, TIPS procedure 2014 with revision 2016, Wesley's disease and adrenal insufficiency, hypothyroidism, DM type II [facility]. Prior to her last admission, she lived mostly independently with minimal assistance from her /caregiver. She was noted to be lethargic throughout the day and [facility] and there was concern that she had not had a bowel movement despite being on lactulose. CT of the head was negative. However, she was found to have ammonia of 196 and was mildly hypoglycemic with BG of 68. She was obtunded in the ED but arousable but remained confused. She was initially treated with lactulose enema and IV dextrose. She was reported to have 1 bowel movement in the ED following enema. She has remained hemodynamically stable. Given degree of hepatic encephalopathy decision was made to transfer patient to the ICU for further management at this time. As of now she is protecting her airway, but will be low threshold for intubation if decompensates. Will monitor closely in the ICU for now. Allergies Allergy/AdvReac Type Severity Reaction Status Date / Time midazolam [From Versed] Allergy Unknown Verified 07/24/19 23:05 montelukast [From Singulair] Allergy Unknown Verified 07/24/19 23:05 nitrofurantoin Allergy Unknown Verified 07/24/19 23:05 [From Macrodantin] Penicillins Allergy Unknown Verified 07/24/19 23:05 sulfamethoxazole Allergy Unknown Verified 07/24/19 23:05 [From Bactrim] terconazole [From Terazol 3] Allergy Unknown Verified 07/24/19 23:05 trimethoprim [From Bactrim] Allergy Unknown Verified 07/24/19 23:05 Home Medications Home Medications Medication Instructions Recorded Confirmed Type blood sugar diagnostic #450 ea 08/05/18 07/24/19 Rx escitalopram oxalate 10 mg tablet 15 mg PO DAILY #135 tab 08/05/18 07/24/19 Rx fluticasone propionate 50 2 sprays INTRANASAL DAILY #18.2 gm 08/05/18 07/24/19 Rx mcg/actuation nasal spray,suspension rifaximin 550 mg tablet 550 mg PO BID #180 tab 08/27/18 07/24/19 Rx levothyroxine 50 mcg tablet 50 mcg PO DAILY #90 tab 09/09/18 07/24/19 Rx pantoprazole 40 mg tablet,delayed 40 mg PO BID #180 tab 10/27/18 07/24/19 Rx release cholecalciferol (vitamin D3) 50 2,000 units PO DAILY 10/29/18 07/24/19 History mcg (2,000 unit) capsule lactulose 10 gram/15 mL oral 40 ml PO QID btl 12/30/18 07/24/19 History solution pen needle, diabetic 31 gauge x #100 ea 01/17/19 07/24/19 Rx 3/16" sub-q insulin device, 40 unit #30 ea 02/10/19 07/24/19 Rx Oxygen Home #1 ea 07/07/19 07/24/19 Rx ferrous sulfate 325 mg (65 mg 325 mg PO BID #60 tab 07/07/19 07/24/19 Rx iron) tablet acetaminophen [Tylenol] 650 mg PO Q4 PRN 07/24/19 07/24/19 History docusate sodium 100 mg PO BID PRN 07/24/19 07/24/19 History furosemide [Lasix] 40 mg PO BID 07/24/19 07/24/19 History gabapentin 300 mg PO HS 07/24/19 07/24/19 History hydrocortisone 5 mg PO .QDINNER 07/24/19 07/24/19 History hydrocortisone [Cortef] 10 mg PO .QBREAKFAST 07/24/19 07/24/19 History insulin glargine [Lantus U-100 56 unit SUBCUT DAILY 07/24/19 07/24/19 History Insulin] insulin lispro protamin-lispro 18 unit SUBCUT TIDM 07/24/19 07/24/19 History [Humalog Mix 75-25(U-100)Insuln] insulin regular human [Humulin R 0 unit SUBCUT TIDM 07/24/19 07/24/19 History Regular U-100 Insuln] melatonin 6 mg PO HS 07/24/19 07/24/19 History nystatin 1 applic TOPICAL BID 07/24/19 07/24/19 History polyethylene glycol 3350 [Miralax] 17 g PO DAILY PRN 07/24/19 07/24/19 History sennosides-docusate sodium 1 tab PO DAILY PRN 07/24/19 07/24/19 History [Senna-S] spironolactone 50 mg PO BID 07/24/19 07/24/19 History zinc sulfate 220 mg PO DAILY 07/24/19 07/24/19 History Patient History Medical History (Updated 07/25/19 @ 01:59 by Bela Farmer DO) Adjustment disorder with mixed anxiety and depressed mood (Acute) Adrenal insufficiency, primary, autoimmune (Acute) Chronic low back pain Diabetic peripheral neuropathy associated with type 1 diabetes mellitus (Acute) Dyslipidemia (Acute) Esophageal varices (Acute) Fracture, sacrum/coccyx (Inactive) Gait disturbance, post-stroke (Acute) Hepatic encephalopathy (Acute) History of subarachnoid hemorrhage (Inactive) Hypothyroidism (Acute) Iron deficiency anemia (Acute) Iron deficiency anemia Mineral deficiency (Inactive) LEOS (nonalcoholic steatohepatitis) (Acute) Obstructive sleep apnea (Acute) Osteoporotic compression fracture of spine (Acute) Recurrent UTI (Acute) Recurrent UTI Sepsis Type 2 diabetes mellitus Unspecified cirrhosis of liver (Acute) Vitamin D deficiency (Acute) Surgical History (Updated 07/25/19 @ 02:47 by BARRY Gatica) H/O: hysterectomy History of bladder surgery History of rectal surgery History of tubal ligation Hx of tonsillectomy S/P TIPS (transjugular intrahepatic portosystemic shunt) Family History Father Colon cancer Mother Diabetes Renal failure Social History Preferred Language: Monegasque Communication Ability: Effective Visual Impairment: No Limitations Hearing Ability: Normal Button Reclaimer Required: No Beliefs That Will Affect Care: None marital status: Current Living Situation: Rehab current occupational status: retired Other Information That Helps Us Care for You: No Feels Safe at Home: Declines to Answer Smoking Status: Unknown if ever smoked Hx Alcohol Use: No Hx Substance Use: No Childhood Exposure to Second-Hand Smoke: No Dental Care, Regularly: No Physical Activity Frequency: Does not Exercise Seatbelt Use: always Sunscreen Use: No Review of Systems Review of Systems: Unobtainable due to cognitive status Physical Exam Constitutional: + frail appearing and + lethargic Eyes: PERRL, conjunctivae normal, anicteric sclerae ENMT: external ear and nose normal, oropharynx normal Neck: trachea midline, no thyromegaly Respiratory: normal respiratory effort, lungs clear to auscultation Cardiovascular: Rate/Rhythm: regular rate and regular rhythm Heart Sounds: normal S1 and normal S2 Vessels: no JVD Bilateral lower extremity edema Gastrointestinal (Abdomen): Hepatomegaly, abdomen distended but soft, nontender, hypoactive bowel sounds Skin: + jaundice Neurologic: PERRLA, patient obtunded but arousable with minor stimulation, confused, symmetrical movements Psychiatric: Orientation: oriented to person; + not oriented to place and + not oriented to time Genitourinary: Fields catheter Results & Data Results & Data ([facility]) Vital Signs (Past 12 Hours) Vital Signs Temp Pulse Resp BP BP Pulse Ox 07/25/19 01:28 96 H 16 165/72 H 100 06/08/20 00:00 173/74 H 07/24/19 22:15 37.3 C 103 H 14 165/67 H 99 07/24/19 22:10 95 Coding Level of Care Code Critical Care 1st 30-74 mins Diagnoses Acute hepatic encephalopathy K72.00 Anemia D64.9 Anemia type: unspecified type Elevated serum creatinine R79.89 Hypoglycemia E16.2 Thrombocytopenia D69.6 Recurrent UTI N39.0 Liver cirrhosis K74.60 LEOS (nonalcoholic steatohepatitis) K75.81 Type 2 diabetes mellitus E11.9 Esophageal varices I85.00 Adrenal insufficiency, primary, autoimmune E27.1 (1) Anemia Anemia type: unspecified type Qualified Code(s): D64.9 - Anemia, unspecified
[2019-07-25] MEDS ORDERED: NORMOSOL-R 500 ML IV ONE (03:49)
[2019-07-25 04:35] LABS: Base Excess VBG 4.3 mEq/L; Oxygen Saturation VBG 88.7 %; pH VBG 7.49 (7.36-7.41)
[2019-07-25] MEDS: cefTRIAXone SODIUM 2,000 MG in DEXTROSE 5% 50 ML IV SCH (04:41)
[2019-07-25 04:54] LABS: Magnesium 2.2 mg/dl (1.8-2.4); Troponin I 0.049 ng/ml (0-0.045)
[2019-07-25] MEDS: LACTULOSE 200 GM, WATER, STERILE IRRIG 700 ML, BARCODE IDENTIFIER 1 EA PR SCH ×3 (06:16→23:32)
[2019-07-25] MEDS: HYDROCORTISONE SOD 100 MG in SYRINGE 0 ML IV SCH ×3 (06:17→21:42)
[2019-07-25] MEDS: UNIT DOSE COMPOUND PR SCH ×3 (06:17→23:33)
[2019-07-25] MEDS: LEVOTHYROXINE SODIUM 50 MCG TABLET PO SCH (06:17)
[2019-07-25 06:27] LABS: Hematocrit (blood only) 30.1 % (37-47); Hemoglobin 9.8 g/dL (12.0-16.0); Mean Corpuscular Hemoglobin 32.5 pg (25-34); Mean Corpuscular Hgb Conc 32.6 g/dL (32-36); Mean Corpuscular Volume 99.7 fL (80-100); RDW Coefficient of Variation 22.4 % (11.5-14.5); RDW Standard Deviation 81.2 fL (36.4-46.3); Red Blood Count 3.02 M/uL (4.2-5.4); White Blood Count 10.89 K/uL (4.8-10.8)
[2019-07-25 06:31] LABS: Mean Platelet Volume 9.4 fL (7.4-10.4); Platelet Count 55 K/uL (130-400)
[2019-07-25 06:39] LABS: INR 1.9 (0.9-1.1); Prothrombin Time 19.5 Seconds (9.0-12.0)
[2019-07-25 07:05] LABS: Albumin Globulin Ratio 0.5 (0.9-2); Albumin Level 1.8 gm/dl (3.4-5.0); BUN Creatinine Ratio 15.8 (10-20); Bilirubin,Total 4.6 mg/dl (0.2-1); Calcium 8.9 mg/dl (8.5-10.1); Est GFR (African American) 40.3; Est GFR (Non-African American) 34.8; Globulin 3.5 gm/dl (2.5-4.0); Magnesium 2.4 mg/dl (1.8-2.4); Phosphorus 2.9 mg/dl (2.5-4.9); Potassium 4.7 mmol/L (3.5-5.1); Total Protein 5.3 gm/dl (6.4-8.2)
--- NOTE | 2019-07-25 07:06 | CT Scan Report ---
HEAD CT NONCONTRAST CT DOSE: 537.48 mGy.cm HISTORY: Altered mental status. TECHNIQUE: Multiaxial CT images of the head were performed without the use of intravenous contrast. A utomated exposure control was utilized for this study. A dose lowering technique was utilized adheri ng to the principles of ALARA. Comparison: None. Findings: The paranasal sinuses and mastoid air cells are clear. The calvarium and skull base are int act. There is no mass, hematoma, midline shift, acute infarct. White matter hypodensity is nonspecifi c but suggestive of microvascular ischemic change. The ventricles and sulci demonstrate mild age-rela tasha involutional changes. Impression: No acute intracranial abnormality. Atrophy and microvascular ischemic changes. ACT 112: Negative or not required by law. Electronically signed by: Abner Crowder M.D. 07/25/2019 7:05 AM
[2019-07-25 07:10] LABS: Acanthocytes 1+; Anisocytosis Present; Basophils # (auto) 0.03 K/uL (0-0.2); Basophils % (auto) 0.3 %; Eosinophils # (auto) 0.04 K/uL (0-0.5); Eosinophils % (auto) 0.4 %; Immature Granulocytes % (auto) 3.7 %; Lymphocytes % (auto) 2.8 %; Monocytes # (auto) 0.32 K/uL (0.11-0.59); Monocytes % (auto) 2.9 %; Neutrophils % (auto) 89.9 %
--- NOTE | 2019-07-25 07:29 | Ultrasound Report ---
US duplex portal hepatic veins CLINICAL HISTORY: encephalopathy COMPARISON STUDY: None. FINDINGS: Nodular contour to the liver consistent with cirrhosis. Small amount of perihepatic ascites . The TIPS is patent. The visualized IVC, splenic, portal, and hepatic veins are also patent. Peak ve locity within the TIPS is 158 cm/s. 1.7 cm cyst within the liver. IMPRESSION: 1. The TIPS is patent. 2. The visualized hepatic and portal veins are also patent. 3. Cirrhosis with small amount of perihepatic ascites. ACT 112: Negative or not required by law. Electronically signed by: Abner Crowder M.D. 07/25/2019 7:28 AM
--- NOTE | 2019-07-25 07:51 | XRay Report ---
XR chest 1V portable HISTORY: weakness COMPARISON: None. FINDINGS: No pneumothorax. No pleural effusions. The heart is mildly enlarged. There is diffuse inter stitial vascular thickening consistent with mild congestive change. No focal lung consolidations to s uggest pneumonia. Vascular coils are seen within the upper abdomen. A TIPS is noted. IMPRESSION: Cardiomegaly. Mild central pulmonary vascular congestion without overt edema. ACT 112: Negative or not required by law. Electronically signed by: Abner Crowder M.D. 07/25/2019 7:50 AM
[2019-07-25] MEDS ORDERED: GLUCOSE 10 TABS/TUBE PO PRN (09:30)
[2019-07-25] MEDS ORDERED: GLUCOSE 40% GEL 15 GM TUBE PO PRN (09:30)
[2019-07-25] MEDS ORDERED: CARBOHYDRATES FOR HYPOGLYCEMIA PO PRN (09:30)
[2019-07-25] MEDS ORDERED: DEXTROSE 50% 50 ML SYRINGE IV PRN (09:30)
[2019-07-25] MEDS ORDERED: GLUCAGON FOR INJ 1 MG VIAL IM PRN (09:30)
[2019-07-25] MEDS ORDERED: PHARMACY GLYCEMIC MGMT CONSULT PRN (10:25)
[2019-07-25] MEDS ORDERED: INSULIN GLARGINE SOLOSTAR 100 UNITS/ML 3 ML PEN SC ONE (10:30)
[2019-07-25] MEDS: FERROUS SULFATE 325 MG TAB PO SCH ×2 (10:47→18:00)
[2019-07-25] MEDS: ESCITALOPRAM OXALATE 10 MG TAB PO SCH (10:47)
[2019-07-25] MEDS: PANTOprazole 40 MG TAB PO SCH ×2 (10:48→21:41)
[2019-07-25] MEDS: ZINC SULFATE 220 MG CAPSULE PO SCH (10:48)
[2019-07-25] MEDS: RIFAXIMIN 550 MG TABLET PO SCH ×2 (10:48→21:41)
[2019-07-25] MEDS: NYSTATIN CR 15 GM TUBE EXT SCH ×2 (11:16→21:41)
[2019-07-25] MEDS: FLUTICASONE PROPIONATE NA SPR 16 GM BTL SCH (11:17)
[2019-07-25] MEDS: INSULIN ASPART 100 UNITS/ML 3 ML PEN SC SCH ×2 (11:20→17:33)
[2019-07-25] MEDS ORDERED: INSULIN ASPART 100 UNITS/ML 3 ML PEN SC SCH (11:30)
--- NOTE | 2019-07-25 11:31 | Gastrointestinal Consultation ---
Date of Consultation July 25, 2019 Assessment & Plan (1) Acute hepatic encephalopathy: (2) Liver cirrhosis: Pt is a 73 y/o female w hx of NAFLD cirrhosis s/p TIPS placement, previous complications w GAVE, edema currently admitted for hepatic encephalopathy and slow to improve w Lactulose enema. Negative infectious workup so far and Head CT unremarkable. Daughter said Lactulose not titrated based on BMs when pt was in rehab. Her Hypothyroidism is also not well controlled (TSH). Thus these can be factors in causing her AMS - Continue Lactulose enema. Once more alert and able to take PO, can convert this med to PO form and continue Xifaxan, Zinc - Hold diuretics - F/U blood cx - Gentle IVF support - Trend Troponin - Hypothyroidism management per primary and ICU teams - Will follow along - Daughter (Susan Duarte) contact information: [phone] (c); [phone] (office) Supervising Physician Co-Signing Physician Notes Late entry: Patient was seen and examined on 07/24. her note reflects our findin gs and plan. Known cirrhosis with h/o TIPS admitted with confusion and altered mental status and elevated ammonia. Infectious w/u in progress. Agree with lactulaose enemas. History of Present Illness Reason for Consultation: Hepatic encephalopathy Requesting Physician: Dr. Floridalma Manrique Attending Physician: Dr. Heidi Santo History of Present Illness Pt is a 73 y/o female who was brought from [facility] for AMS. She has hx of NAFLD cirrhosis, s/p TIPS placement in 2013, revision in 2016, previous issues w edema. She recently had a fall and was in [facility] for Rehab. She is currently still quite drowsy, cannot provide hx. Chart reviewed, and I spoke w RN and pt's daughter (Susan). Susan reports mom had been slightly more confuse these past 3 months. She noticed that pt's Lactulose wasn't titrated while at [facility] when she doens't have BMs. Pt was also on Xifaxan and Zinc for HE. Initial WBC up at 12. H/H better than baseline w/o signs of GI bleeding. Her infectious w/u had been negative. Ammonia level >100. Noted TSH 27. Troponin trending up this AM. Head CT unremarkable. Portal u/s showed patent TIPS and small perihepatic ascites. BUN/Cr showed she may have been slightly dehydrated, renal function is improving. She had been receiving Lactulose enema since admitted and per RN her mental status is slowly improving. Last EGD 11/2018 - GAVE, slight oozing, APC applied Last colonoscopy 08/10/2014 - morley diverticulosis, cecal polyps Allergies Allergy/AdvReac Type Severity Reaction Status Date / Time midazolam [From Versed] Allergy Unknown Verified 07/24/19 23:05 montelukast [From Singulair] Allergy Unknown Verified 07/24/19 23:05 nitrofurantoin Allergy Unknown Verified 07/24/19 23:05 [From Macrodantin] Penicillins Allergy Unknown Verified 07/24/19 23:05 sulfamethoxazole Allergy Unknown Verified 07/24/19 23:05 [From Bactrim] terconazole [From Terazol 3] Allergy Unknown Verified 07/24/19 23:05 trimethoprim [From Bactrim] Allergy Unknown Verified 07/24/19 23:05 Home Medications Home Medications Medication Instructions Recorded Confirmed Type blood sugar diagnostic #450 ea 08/05/18 07/24/19 Rx escitalopram oxalate 10 mg tablet 15 mg PO DAILY #135 tab 08/05/18 07/24/19 Rx fluticasone propionate 50 2 sprays INTRANASAL DAILY #18.2 gm 08/05/18 07/24/19 Rx mcg/actuation nasal spray,suspension rifaximin 550 mg tablet 550 mg PO BID #180 tab 08/27/18 07/24/19 Rx levothyroxine 50 mcg tablet 50 mcg PO DAILY #90 tab 09/09/18 07/24/19 Rx pantoprazole 40 mg tablet,delayed 40 mg PO BID #180 tab 10/27/18 07/24/19 Rx release cholecalciferol (vitamin D3) 50 2,000 units PO DAILY 10/29/18 07/24/19 History mcg (2,000 unit) capsule lactulose 10 gram/15 mL oral 40 ml PO QID btl 12/30/18 07/24/19 History solution pen needle, diabetic 31 gauge x #100 ea 01/17/19 07/24/19 Rx 3/16" sub-q insulin device, 40 unit #30 ea 02/10/19 07/24/19 Rx Oxygen Home #1 ea 07/07/19 07/24/19 Rx ferrous sulfate 325 mg (65 mg 325 mg PO BID #60 tab 07/07/19 07/24/19 Rx iron) tablet acetaminophen [Tylenol] 650 mg PO Q4 PRN 07/24/19 07/24/19 History docusate sodium 100 mg PO BID PRN 07/24/19 07/24/19 History furosemide [Lasix] 40 mg PO BID 07/24/19 07/24/19 History gabapentin 300 mg PO HS 07/24/19 07/24/19 History hydrocortisone 5 mg PO .QDINNER 07/24/19 07/24/19 History hydrocortisone [Cortef] 10 mg PO .QBREAKFAST 07/24/19 07/24/19 History insulin glargine [Lantus U-100 56 unit SUBCUT DAILY 07/24/19 07/24/19 History Insulin] insulin lispro protamin-lispro 18 unit SUBCUT TIDM 07/24/19 07/24/19 History [Humalog Mix 75-25(U-100)Insuln] insulin regular human [Humulin R 0 unit SUBCUT TIDM 07/24/19 07/24/19 History Regular U-100 Insuln] melatonin 6 mg PO HS 07/24/19 07/24/19 History nystatin 1 applic TOPICAL BID 07/24/19 07/24/19 History polyethylene glycol 3350 [Miralax] 17 g PO DAILY PRN 07/24/19 07/24/19 History sennosides-docusate sodium 1 tab PO DAILY PRN 07/24/19 07/24/19 History [Senna-S] spironolactone 50 mg PO BID 07/24/19 07/24/19 History zinc sulfate 220 mg PO DAILY 07/24/19 07/24/19 History Patient History Medical History Adjustment disorder with mixed anxiety and depressed mood (Acute) Adrenal insufficiency, primary, autoimmune (Acute) Chronic low back pain Diabetic peripheral neuropathy associated with type 1 diabetes mellitus (Acute) Dyslipidemia (Acute) Esophageal varices (Acute) Fracture, sacrum/coccyx (Inactive) Gait disturbance, post-stroke (Acute) Hepatic encephalopathy (Acute) History of subarachnoid hemorrhage (Inactive) Hypothyroidism (Acute) Iron deficiency anemia (Acute) Iron deficiency anemia Mineral deficiency (Inactive) FISCHER (nonalcoholic steatohepatitis) (Acute) Obstructive sleep apnea (Acute) Osteoporotic compression fracture of spine (Acute) Recurrent UTI (Acute) Recurrent UTI Sepsis Type 2 diabetes mellitus Unspecified cirrhosis of liver (Acute) Vitamin D deficiency (Acute) Surgical History H/O: hysterectomy History of bladder surgery History of rectal surgery History of tubal ligation Hx of tonsillectomy S/P TIPS (transjugular intrahepatic portosystemic shunt) Family History Father Colon cancer Mother Diabetes Renal failure Social History Preferred Language: Mohawk Communication Ability: Impaired Visual Impairment: No Limitations Hearing Ability: Normal [employer] Chief Required: No Beliefs That Will Affect Care: None marital status: Current Living Situation: Rehab current occupational status: retired Other Information That Helps Us Care for You: No Feels Safe at Home: Declines to Answer Smoking Status: Unknown if ever smoked Hx Alcohol Use: No Hx Substance Use: No Childhood Exposure to Second-Hand Smoke: No Dental Care, Regularly: No Physical Activity Frequency: Does not Exercise Seatbelt Use: always Sunscreen Use: No Review of Systems Review of Systems: Unobtainable due to cognitive status Physical Exam Constitutional: + ill appearing, + thin and comfortable drowsy Eyes: PERRL, conjunctivae normal, anicteric sclerae ENMT: external ear and nose normal, oropharynx normal Respiratory: diminished bilaterally Cardiovascular: RRR, no murmur, no edema Gastrointestinal (Abdomen): normal bowel sounds, soft, nontender, no hepatosplenomegaly Skin: no rashes, warm and dry + jaundice Psychiatric: Drowsy, wakes up periodically to try to sit up then falls back to sleep. Did respond to me shaking L shoulder gently telling me to "shut up". No following commands Lymphatic: no lymphedema Results & Data ([facility]) Vital Signs (Past 12 Hours) Vital Signs Temp Pulse Pulse Resp BP BP Pulse Ox 07/25/19 08:00 94 H 07/25/19 07:30 94 H 22 98 07/25/19 07:00 96 H 25 H 140/62 97 07/25/19 06:30 102 H 17 94 07/25/19 06:00 95 H 26 H 134/62 95 06/08/20 05:30 94 H 18 97 07/25/19 05:00 101 H 24 141/62 H 96 07/25/19 04:30 102 H 21 95 07/25/19 04:00 36.6 C 97 H 16 146/62 H 97 07/25/19 03:30 95 H 14 96 07/25/19 03:00 93 H 17 146/56 H 97 07/25/19 02:30 98 H 26 H 96 07/25/19 02:00 36.5 C 97 H 97 H 22 154/68 H 154/68 H 100 07/25/19 01:55 101 H 17 160/75 H 07/25/19 01:30 95 H 13 164/68 H 100 07/25/19 01:29 95 H 13 165/72 H 100 07/25/19 01:28 96 H 16 165/72 H 100 07/25/19 01:00 96 H 15 100 07/25/19 00:49 99 H 17 173/74 H 100 07/25/19 00:30 101 H 17 07/25/19 00:00 36.5 C 96 H 18 173/74 H 07/24/19 23:30 94 H 15 99
--- NOTE | 2019-07-25 14:43 | Pharmacy Report ---
Pharmacy Glycemic Short Note 2 - Date of Service July 25, 2019 - Glycemic Short BSG Results (Last 24 hours): 07/24/19 07/24/19 07/24/19 22:40 23:25 23:46 Glucose 68 L POC Glucose 72 158 H 07/25/19 07/25/19 07/25/19 02:25 03:26 04:38 Glucose POC Glucose 106 H 97 87 07/25/19 07/25/19 07/25/19 06:02 06:14 07:25 Glucose 101 H POC Glucose 110 H 142 H 07/25/19 07/25/19 08:59 11:01 Glucose POC Glucose 119 H 119 H OUTPATIENT ANTIDIABETIC REGIMEN: * Tresiba 56 units qam * 22 units 70/30 ACHS (recently increased in June) * A1c: 8.3% 07-01-19 ASSESSMENT: * Patient presented with acute hepatic encephalopathy requiring ICU care. Patient was slightly hypoglycemic on presentation, but has remained within an acceptable range since. Acute clinical status and NPO may be contributing to change in insulin requirements. Will give a very conservative Lantus dose this morning and scale this evening as BSGs have remained very well controlled. Patient is receiving stress doses of hydrocortisone that will likely continue through today. PLAN FOR INPATIENT GLYCEMIC CONTROL: * Hold outpatient oral diabetes medications * Basal insulin * Lantus 15 units SQ x1 (administered ~1120) * Lantus scale (0 units for BSG < 120, 10 units for BSG 120-220, 20 units for BSG >220) * Bolus insulin * NovoLog per scale ACHS or Q6hrs while NPO * Goal Range: Low 120 mg/dL - High 150 mg/dL * Correction Factor: 20 mg/dL/unit * Nutritional / Prandial insulin per carb ratio of 1 unit per 7 grams CHO consumed
--- NOTE | 2019-07-25 15:24 | Hospitalist Progress Note ---
Date of Service July 25, 2019 Assessment & Plan (1) Acute hepatic encephalopathy: 73yo C female with cirrhosis of the liver secondary to FISCHER presenting with acute hepatic encephalopathy. NEURO: acute hepatic encephalopathy, hypoglycemia, renal insufficiency. -Treatment of acute medical issues as below -Continue escitalopram 15mg po daily when patient able to take PO Appears improving PULMONARY: Adequate oxygenation on room air with no evidence of respiratory distress. CXR noted Patient is protecting airway. -Continue to monitor -Supplemental O2 as needed to maintain O2 saturation >92% CARDIOVASCULAR: Patient mildly hypertensive and tachycardic still. Troponin detectable within normal range -Continue to monitor -Repeat troponin with AM labs GASTROINTESTINAL: Patient with cirrhosis secondary to FISCHER, s/p TIPS procedure in 2013 with revision in 2016 at [facility]. Daughter reports no further issues with esophageal varices or ascites following the TIPS procedure. 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 Was previously being worked up for transplant, however, daughter states this is no longer the plan due to patient's declining health and debility. She is on lactulose at home, titrated to 3-4 soft BMs daily as well as Rifaximin. Daughter reports patient required some extra lactulose on 07/22/19 and no BM yesterday. Ammonia = 192.6 on admission, improved to 69 s/p lactulose Remainder of liver panel, INR and platelets are similar to prior. -Continue Lactulose enemas -Trend ammonia levels -Continue Rifaximin 550mg PO BID. -Hold Lasix and Aldactone for now as patient appears clinically dry, mild increase in BUN/Cr from prior -Continue Zinc -GI consulted per daughter's request - patient is well known to Dr. Klein GENITOURINARY - mildly elevated BUN/Cr. Patient appears to be dry on exam, suspect pre-renal cause rather than hepatorenal syndrome, ATN -Monitor BUN/Cr/electrolytes and UOP -Avoid nephrotoxic agents -Renal dosing where needed HEMATOLOGY - patient with thrombocytopenia, Plt=66. No active bleeding -Continue to monitor ENDOCRINE - Patient with hypothyroidism, adrenal insufficiency and poorly controlled DM. She had some mild hypoglycemia in the ER which responded well to Dextrose. HD stable, no evidence of adrenal crisis at this time. TSH markedly elevated with normal T4 -Will hold PO hydrocortisone and provide stress-dosed IV Hydrocortisone for now. 100mg IV q 8. First dose given in ER -Continue Synthroid 50mcg po daily -Blood sugar q 1 hour, will hold on Dextrose infusion for now given TRP=362, recent IV steroid use -Hyperglycemia protocol per MICU ID - Afebrile, HD stable. +Leukocytosis with WBC=12.52, neutrophil predominant with immature cells. UA and CXR does not suggest infection. No ascites - doubt SBP -Blood cultures drawn -No abx at this time F/E/N - Normosol at 80mL/hr x 1 liter, monitor electrolytes, NPO for now - can advance diet to low Na/CC when mental status improves Ppx - SCDs Code - Full Dispo - Admit to MICU POC - Susan (daughter, [employer] physician from [facility]) [phone] (2) Elevated serum creatinine: (3) Hypoglycemia: (4) Liver cirrhosis: (5) Addisons disease: (6) Hypothyroidism: (7) Type 2 diabetes mellitus: (8) Dyslipidemia: (9) Adjustment disorder with mixed anxiety and depressed mood: Admission and Anticipated Discharge Date Admission Date: July 25, 2019 Subjective Per nursing, pt is more alert. She is now answering some questions and moving around in her bed. Pt initially answers "yes" to pain, but no answer when asked where. Then later "no". Pt denies fever, SOB, chest pain, abd pain, n/v/c/d, LE pain or swelling. Review of Systems Review of Systems: Pertinent positives and negatives reviewed in HPI--all others negative Physical Exam Constitutional: WD/WN, vitals as above Eyes: normal visual barton by confrontation and + anicteric sclerae Neck: normal visual inspection and trachea midline Respiratory: normal respiratory effort, lungs clear to auscultation Cardiovascular: Rate/Rhythm: regular rate and regular rhythm Gastrointestinal (Abdomen): Inspection/Auscultation: abdomen not distended Percussion/Palpation: abdomen soft; abdomen nontender Musculoskeletal: Head/Neck/Chest: normocephalic and head atraumatic negative for edema, peripheral pulses intact Skin: no rashes, warm and dry Neurologic: awake and + confused Speech / Cognition: normal speech Psychiatric: Orientation: oriented to person and cooperative; + not oriented to place and + not oriented to time Results & Data Results & [facility] ([facility]) Vital Signs (Past 12 Hours) Vital Signs Temp Pulse Resp BP Pulse Ox 07/25/19 12:20 102 H 20 98 07/25/19 12:10 101 H 19 97 07/25/19 12:00 101 H 18 143/57 H 97 07/25/19 11:50 96 H 18 97 07/25/19 11:40 100 H 18 96 07/25/19 11:30 95 H 21 97 07/25/19 11:20 100 H 19 97 07/25/19 11:10 98 H 15 97 07/25/19 11:00 99 H 19 129/62 97 07/25/19 10:50 99 H 16 97 07/25/19 10:40 96 H 31 H 96 07/25/19 10:30 92 H 18 96 07/25/19 10:20 93 H 18 97 07/25/19 10:10 98 H 18 96 07/25/19 10:00 93 H 14 127/63 97 07/25/19 09:50 91 H 17 97 07/25/19 09:40 93 H 14 97 07/25/19 09:30 95 H 13 98 07/25/19 09:20 98 H 14 97 07/25/19 09:10 93 H 14 97 07/25/19 09:00 98 H 15 145/66 H 98 07/25/19 08:50 97 H 28 H 97 07/25/19 08:40 101 H 13 97 07/25/19 08:30 95 H 20 96 07/25/19 08:20 91 H 22 94 07/25/19 08:10 94 H 18 96 07/25/19 08:00 93 H 20 135/60 97 07/25/19 07:50 94 H 23 97 07/25/19 07:40 98 H 14 97 07/25/19 07:30 94 H 22 98 07/25/19 07:00 96 H 25 H 140/62 97 07/25/19 06:30 102 H 17 94 07/25/19 06:00 95 H 26 H 134/62 95 07/25/19 05:30 94 H 18 97 07/25/19 05:00 101 H 24 141/62 H 96 07/25/19 04:30 102 H 21 95 07/25/19 04:00 36.6 C 97 H 16 146/62 H 97 07/25/19 03:30 95 H 14 96 PG Care Time/CCT Total # of Minutes Spent Total Time Spent with Patient: Total time spent is greater than 50% in coordination of care (as documented) at patient's floor/unit and/or counseling patient: Coding Level of Care Code 16624 Subseq Hosp Care Lvl 3 Diagnoses Acute hepatic encephalopathy K72.00 Elevated serum creatinine R79.89 Hypoglycemia E16.2 Liver cirrhosis K74.60 Addisons disease E27.1 Hypothyroidism E03.9 Type 2 diabetes mellitus E11.9 Dyslipidemia E78.5 Adjustment disorder with mixed anxiety and depressed mood F43.23
[2019-07-25] MEDS: GABAPENTIN 300 MG CAP PO SCH (21:41)
[2019-07-25] MEDS: INSULIN GLARGINE SOLOSTAR 100 UNITS/ML 3 ML PEN SC SCH (21:41)
--- NOTE | 2019-07-25 22:23 | Electrocardiogram Report ---
Test Reason : Blood Pressure : / mmHG Vent. Rate : 101 BPM Atrial Rate : 101 BPM P-R Int : 112 ms QRS Dur : 080 ms QT Int : 376 ms P-R-T Axes : 068 -18 007 degrees QTc Int : 487 ms Sinus tachycardia Voltage criteria for left ventricular hypertrophy Abnormal ECG No previous ECGs available Confirmed by Umair Kay ([id number]) on 07/25/2019 10:23:17 PM Referred By: Confirmed By:Umair Kay
[2019-07-26 05:16] LABS: Hematocrit (blood only) 30.9 % (37-47); Hemoglobin 10.3 g/dL (12.0-16.0); Mean Corpuscular Hemoglobin 33.3 pg (25-34); Mean Corpuscular Hgb Conc 33.3 g/dL (32-36); RDW Coefficient of Variation 22.5 % (11.5-14.5); RDW Standard Deviation 82.7 fL (36.4-46.3); Red Blood Count 3.09 M/uL (4.2-5.4); White Blood Count 10.56 K/uL (4.8-10.8)
[2019-07-26 05:32] LABS: Mean Platelet Volume 10.4 fL (7.4-10.4); Platelet Count 71 K/uL (130-400)
[2019-07-26 05:37] LABS: Acanthocytes 1+; Anisocytosis Present; Basophils # (auto) 0.01 K/uL (0-0.2); Basophils % (auto) 0.1 %; Eosinophils # (auto) 0.01 K/uL (0-0.5); Eosinophils % (auto) 0.1 %; Immature Granulocytes # (auto) 0.19 K/uL (0.00-0.02); Immature Granulocytes % (auto) 1.8 %; Lymphocytes # (auto) 0.35 K/uL (1.2-3.4); Lymphocytes % (auto) 3.3 %; Monocytes # (auto) 0.84 K/uL (0.11-0.59); Neutrophils # (auto) 9.16 K/uL (1.4-6.5); Neutrophils % (auto) 86.7 %
[2019-07-26 05:42] LABS: INR 2.2 (0.9-1.1); Prothrombin Time 21.9 Seconds (9.0-12.0)
[2019-07-26 06:23] LABS: BUN Creatinine Ratio 23.7 (10-20); Bilirubin Direct 3.5 mg/dl (0-0.2); Bilirubin,Total 6.2 mg/dl (0.2-1); Calcium 8.6 mg/dl (8.5-10.1); Est GFR (Non-African American) 36.2; Phosphorus 4.3 mg/dl (2.5-4.9); Potassium 3.8 mmol/L (3.5-5.1); Total Protein 5.4 gm/dl (6.4-8.2)
[2019-07-26] MEDS: INSULIN ASPART 100 UNITS/ML 3 ML PEN SC SCH ×4 (06:23→16:57)
[2019-07-26] MEDS: LACTULOSE SYRUP 10 GM/15 ML BTL 960 ML PO SCH ×5 (06:25→21:51)
[2019-07-26] MEDS: HYDROCORTISONE SOD 100 MG in SYRINGE 0 ML IV SCH (06:26)
[2019-07-26] MEDS: cefTRIAXone SODIUM 2,000 MG in DEXTROSE 5% 50 ML IV SCH (06:26)
[2019-07-26] MEDS: UNIT DOSE COMPOUND PR SCH ×3 (06:27→21:56)
[2019-07-26] MEDS: LEVOTHYROXINE SODIUM 50 MCG TABLET PO SCH (06:27)
[2019-07-26] MEDS: NYSTATIN CR 15 GM TUBE EXT SCH ×2 (08:28→21:52)
[2019-07-26] MEDS: ESCITALOPRAM OXALATE 10 MG TAB PO SCH (08:28)
[2019-07-26] MEDS: FERROUS SULFATE 325 MG TAB PO SCH ×2 (08:30→17:00)
[2019-07-26] MEDS: FLUTICASONE PROPIONATE NA SPR 16 GM BTL SCH (08:30)
[2019-07-26] MEDS: PANTOprazole 40 MG TAB PO SCH ×2 (08:32→21:55)
[2019-07-26] MEDS: ZINC SULFATE 220 MG CAPSULE PO SCH (08:33)
[2019-07-26] MEDS: RIFAXIMIN 550 MG TABLET PO SCH ×2 (08:33→21:54)
--- NOTE | 2019-07-26 08:59 | Gastroenterology Progress Note ---
Date of Service July 26, 2019 Assessment & Plan (1) Acute hepatic encephalopathy: (2) Liver cirrhosis: Pt is a 73 y/o female w hx of NAFLD cirrhosis s/p TIPS placement, previous complications w GAVE, edema currently admitted for hepatic encephalopathy. Negative infectious workup so far and Head CT unremarkable. Daughter said Lactulose not titrated based on BMs when pt was in rehab. Her Hypothyroidism is also not well controlled (TSH). Thus these can be factors in causing her AMS. Mental status improving, she is a bit more alert and able to follow commands today - ? unclear indication for Ceftriaxone, recommend DC - Continue Lactulose PO (titrate for goal BM 3-5/day). Continue Xifaxan, Zinc - Hold diuretics - F/U blood cx - Gentle IVF support - Trend Troponin -> normalized - Hypothyroidism management per primary and ICU teams - Daughter (Susan Duarte) contact information: [phone] (c); [phone] (office) Admission and Anticipated Discharge Date Admission Date: July 25, 2019 Anticipated date of discharge: 07/29/19 Supervising Physician Co-Signing Physician Notes I have seen and examined the patient with BARRY Carver whose note reflects our findings and plan. Subjective Pt still sleepy but able to follow commands, tells me full name, birthdate and year. She states "[facility]" as her location. She denies any pain Per RN she is able to take meds PO now. Review of Systems Review of Systems: All systems reviewed & are unremarkable except as noted in HPI & below Physical Exam Constitutional: + thin and comfortable Eyes: PERRL, conjunctivae normal, anicteric sclerae ENMT: external ear and nose normal, oropharynx normal Respiratory: normal respiratory effort, lungs clear to auscultation Cardiovascular: RRR, no murmur, no edema Gastrointestinal (Abdomen): normal bowel sounds, soft, nontender, no hepatosplenomegaly Skin: no rashes, warm and dry + jaundice Neurologic: drowsy but more alert than yesterday, and following commands. Oriented to self, year mostly Lymphatic: no lymphedema Results & Data ([facility]) Vital Signs (Past 12 Hours) Vital Signs Temp Pulse Resp BP Pulse Ox 07/26/19 07:40 36.7 C 105 H 16 127/60 98 07/26/19 04:04 36.6 C 98 H 18 137/70 98 07/25/19 23:30 36.8 C 110 H 98 H 136/64 98
[2019-07-26] MEDS: INSULIN GLARGINE SOLOSTAR 100 UNITS/ML 3 ML PEN SC SCH ×2 (11:31→16:58)
[2019-07-26] MEDS ORDERED: Nursing to Pharmacy Communication SCH (11:45)
--- NOTE | 2019-07-26 13:56 | Pharmacy Report ---
Pharmacy Glycemic Short Note 2 - Date of Service July 26, 2019 - Glycemic Short BSG Results (Last 24 hours): 07/25/19 07/25/19 07/26/19 16:56 20:28 00:57 Glucose POC Glucose 124 H 151 H 135 H 07/26/19 07/26/19 07/26/19 04:30 06:19 12:50 Glucose 123 H POC Glucose 137 H 164 H OUTPATIENT ANTIDIABETIC REGIMEN: * Tresiba 56 units qam * 22 units 70/30 ACHS (recently increased in June) * A1c: 8.3% 07-01-19 ASSESSMENT: 07/25: * Patient well controlled over past 24 hours receiving 25 units of basal insulin * 15 units of lantus was again ordered this morning, however was held per RN discussion with provider. I will increase this evenings scale to account for this. * Patient remains NPO and hydrocortisone was decreased today 07/24 * Patient presented with acute hepatic encephalopathy requiring ICU care. Patient was slightly hypoglycemic on presentation, but has remained within an acceptable range since. Acute clinical status and NPO may be contributing to change in insulin requirements. Will give a very conservative Lantus dose this morning and scale this evening as BSGs have remained very well controlled. Patient is receiving stress doses of hydrocortisone that will likely continue through today. PLAN FOR INPATIENT GLYCEMIC CONTROL: * Hold outpatient oral diabetes medications * Basal insulin * Lantus scale this evening (15 units for BSG < 110, 25 units for BSG 110- 220, 30 units for BSG >220) * Bolus insulin * NovoLog per scale ACHS or Q6hrs while NPO * Goal Range: Low 120 mg/dL - High 150 mg/dL * Correction Factor: 20 mg/dL/unit * Nutritional / Prandial insulin per carb ratio of 1 unit per 7 grams CHO consumed
--- NOTE | 2019-07-26 14:28 | Hospitalist Progress Note ---
Date of Service July 26, 2019 Assessment & Plan (1) Acute hepatic encephalopathy: improving clinically and biochemically. level today wnl. still quite confused but clinically picture will often lag the biochemical recovery. cont rifaximin. cont lactulose, titrate for 3 BMs/day. exact reason she developed hepatic encephalopathy is uncertain. by history she may not have been stooling well at [facility] but [id number] she was receiving all of her usual meds. decompensated hypothyroidism could contribute. I don't see obvious infectious process but planning to recheck u/a and urine culture. also plan to obtain COVID-19 testing. appreciate GI consult and recs. now that she is more awake start clear liquid diet. (2) Liver cirrhosis: 2nd Leos s/p TIPS x 2 -- initial in [place]; redo at [facility] portal doppler with patent TIPS no significant ascites or volume overload resume diuretics soon however cont rifaximin and lactulose monitor INR carefully (3) Addisons disease: currently on stress dose steroids 100mg TID. will decrease to 50mg TID today. (4) Hypothyroidism: over last few months her TSH has been up/down constantly. on June 30 her TSH was nearly normal, now it is considerably high. suspect that the rises are seen when she has had a period of illness and may not have been receiving her meds (she was hospitalized for several days in [place] in late June). since the TSH was relatively normal just a few weeks ago I would leave dose at 50mcg/day and repeat TSH in 2-3 weeks. if still high on recheck then increase synthroid dose. other issue could be that of absorption. cannot rule out decompensated thyroid state as a contributor to hepatic encephalopathy. (5) Diabetic peripheral neuropathy associated with type 1 diabetes mellitus: pharmacy consult appreciated for management (6) Thrombocytopenia: 2nd to cirrhosis of the liver platelets low but stable (7) Coagulopathy: inr much higher than baseline recheck am consider vitamin K could be related to acute liver injury in setting of already known cirrhosis (8) DVT prophylaxis: scds updated daughter Dr Susan Duarte all questions answered Admission and Anticipated Discharge Date Admission Date: July 25, 2019 Subjective patient confused during the visit. awake, answers questions, but could not tell me the day of the week, month or year or where she was. she did know she was from [place] and that she lived with her . her answers to questions for the ROS were not consistent. at one point she said she had chest pain, then a minute later she said she didn't have pain. staff report she was able to take her pilss without incident. staff also report she had 3 large bowel movements overnight and a smaller one this am. Review of Systems Review of Systems: Unobtainable due to cognitive status Physical Exam Constitutional: + altered mental status; no acute distress Eyes: + scleral abnormality (Mild icterus ) ENMT: external ear and nose normal, oropharynx normal Respiratory: normal respiratory effort, lungs clear to auscultation Cardiovascular: Rate/Rhythm: regular rate and regular rhythm Heart Sounds: normal S1 and normal S2; no murmur Vessels: posterior tibial pulses present and dorsalis pedis pulses present; no JVD Extremities: no edema Gastrointestinal (Abdomen): normal bowel sounds, soft, nontender, no hepatosplenomegaly Neurologic: Motor/Sensory: + asterixis Psychiatric: Orientation: + not alert and + not oriented x 3 Results & Data Results & Data ([facility]) Vital Signs (Past 12 Hours) Vital Signs Temp Pulse Resp BP Pulse Ox 07/26/19 11:24 36.5 C 100 H 15 117/58 L 100 07/26/19 07:40 36.7 C 105 H 16 127/60 98 07/26/19 04:04 36.6 C 98 H 18 137/70 98 Laboratory Results Laboratory Results - last 24 hr 07/25/19 07/25/19 07/25/19 16:27 16:56 20:28 WBC RBC Hgb Hct MCV MCH MCHC RDW Std Deviation RDW Coeff of Anastasia Plt Count MPV Immature Gran % (Auto) Neut % (Auto) Lymph % (Auto) [place] % (Auto) Eos % (Auto) Baso % (Auto) Immature Gran # (Auto) Neut # (Auto) Lymph # (Auto) [place] # (Auto) Eos # (Auto) Baso # (Auto) Anisocytosis Acanthocytes (Spur) PT INR Sodium Potassium Chloride Carbon Dioxide Anion Gap BUN Creatinine Est Cr Clr Drug Dosing Est GFR ( Amer) Est GFR (Non-Af Amer) BUN/Creatinine Ratio Glucose POC Glucose 124 H 151 H Calcium Phosphorus Total Bilirubin Direct Bilirubin AST ALT Alkaline Phosphatase Troponin I 0.025 Total Protein Albumin 07/25/19 07/26/19 07/26/19 21:57 00:57 04:30 WBC 10.56 RBC 3.09 L Hgb 10.3 L Hct 30.9 L MCV 100.0 MCH 33.3 MCHC 33.3 RDW Std Deviation 82.7 H RDW Coeff of Anastasia 22.5 H Plt Count 71 L MPV 10.4 Immature Gran % (Auto) 1.8 Neut % (Auto) 86.7 Lymph % (Auto) 3.3 [place] % (Auto) 8.0 Eos % (Auto) 0.1 Baso % (Auto) 0.1 Immature Gran # (Auto) 0.19 H Neut # (Auto) 9.16 H Lymph # (Auto) 0.35 L [place] # (Auto) 0.84 H Eos # (Auto) 0.01 Baso # (Auto) 0.01 Anisocytosis Present Acanthocytes (Spur) 1+ PT INR Sodium Potassium Chloride Carbon Dioxide Anion Gap BUN Creatinine Est Cr Clr Drug Dosing Est GFR ( Amer) Est GFR (Non-Af Amer) BUN/Creatinine Ratio Glucose POC Glucose 135 H Calcium Phosphorus Total Bilirubin Direct Bilirubin AST ALT Alkaline Phosphatase Troponin I 0.034 Total Protein Albumin 07/26/19 07/26/19 07/26/19 04:30 04:30 06:19 WBC RBC Hgb Hct MCV MCH MCHC RDW Std Deviation RDW Coeff of Anastasia Plt Count MPV Immature Gran % (Auto) Neut % (Auto) Lymph % (Auto) [place] % (Auto) Eos % (Auto) Baso % (Auto) Immature Gran # (Auto) Neut # (Auto) Lymph # (Auto) [place] # (Auto) Eos # (Auto) Baso # (Auto) Anisocytosis Acanthocytes (Spur) PT 21.9 H INR 2.2 H Sodium 137 Potassium 3.8 D Chloride 101 Carbon Dioxide 27 Anion Gap 9.0 BUN 34 H Creatinine 1.43 H Est Cr Clr Drug Dosing 29.0 Est GFR ( Amer) 42.0 Est GFR (Non-Af Amer) 36.2 BUN/Creatinine Ratio 23.7 H Glucose 123 H POC Glucose 137 H Calcium 8.6 Phosphorus 4.3 D Total Bilirubin 6.2 H Direct Bilirubin 3.5 H AST 84 H ALT 56 Alkaline Phosphatase 127 H Troponin I Total Protein 5.4 L Albumin 2.0 L 07/26/19 12:50 WBC RBC Hgb Hct MCV MCH MCHC RDW Std Deviation RDW Coeff of Anastasia Plt Count MPV Immature Gran % (Auto) Neut % (Auto) Lymph % (Auto) [place] % (Auto) Eos % (Auto) Baso % (Auto) Immature Gran # (Auto) Neut # (Auto) Lymph # (Auto) [place] # (Auto) Eos # (Auto) Baso # (Auto) Anisocytosis Acanthocytes (Spur) PT INR Sodium Potassium Chloride Carbon Dioxide Anion Gap BUN Creatinine Est Cr Clr Drug Dosing Est GFR ( Amer) Est GFR (Non-Af Amer) BUN/Creatinine Ratio Glucose POC Glucose 164 H Calcium Phosphorus Total Bilirubin Direct Bilirubin AST ALT Alkaline Phosphatase Troponin I Total Protein Albumin PG Care Time/CCT Total # of Minutes Spent Total Time Spent with Patient: Total time spent is greater than 50% in coordination of care (as documented) at patient's floor/unit and/or counseling patient: Coding Level of Care Code 44714 Subseq Hosp Care Lvl 3 Diagnoses Acute hepatic encephalopathy K72.00 Liver cirrhosis K74.60 Hepatic cirrhosis type: unspecified hepatic cirrhosis Ascites presence: unspecified Addisons disease E27.1 Hypothyroidism E03.9 Hypothyroidism type: acquired Diabetic peripheral neuropathy associated with type 1 diabetes mellitus E10.42 Thrombocytopenia D69.6 Coagulopathy D68.9 DVT prophylaxis Z29.9 (1) Liver cirrhosis Hepatic cirrhosis type: unspecified hepatic cirrhosis Ascites presence: unspecified Qualified Code(s): K74.60 - Unspecified cirrhosis of liver (2) Hypothyroidism Hypothyroidism type: acquired Qualified Code(s): E03.9 - Hypothyroidism, unspecified
[2019-07-26] MEDS: THIAMINE HCL 200 MG in SODIUM CHLORIDE 0.9% 50 ML IV SCH ×2 (15:01→21:59)
[2019-07-26] MEDS: HYDROCORTISONE SOD 50 MG in SYRINGE 0 ML IV SCH ×2 (15:01→22:00)
[2019-07-26 16:56] LABS: Appearance Urine Cloudy (Clear); Bacteria Urine Automated Negative (Negative); Blood Urine 3+ (Negative); Color Urine Dark Yellow; Epithelial Cell Urine Auto 0-5 /lpf (0-5); Glucose Urine UA Negative (Negative); Ketones Urine Negative (Negative); Leukocyte Esterase Urine 1+ (Negative); Nitrite Urine Negative (Negative); Protein Urine 1+ (Negative); Specific Gravity Urine 1.028 (1.000-1.030); Urobilinogen Urine Negative (Negative); WBC Urine Automated >30 /hpf (0-5)
[2019-07-26 17:05] LABS: Bilirubin Urine Negative (Negative); Ictotest Urine Negative (Negative)
[2019-07-26 17:26] LABS: RBC Urine Automated >30 /hpf (0-4)
[2019-07-26] MEDS: GABAPENTIN 300 MG CAP PO SCH (21:53)
[2019-07-27] MEDS: INSULIN ASPART 100 UNITS/ML 3 ML PEN SC SCH ×5 (00:35→21:12)
[2019-07-27 04:59] LABS: INR 2.4 (0.9-1.1)
[2019-07-27 05:04] LABS: BUN Creatinine Ratio 29.4 (10-20); Calcium 8.4 mg/dl (8.5-10.1); Creatinine Clr Calc Pharmacy 26.1 ml/min; Est GFR (African American) 36.9; Est GFR (Non-African American) 31.9
[2019-07-27] MEDS: UNIT DOSE COMPOUND PR SCH ×3 (06:07→23:06)
[2019-07-27] MEDS: HYDROCORTISONE SOD 50 MG in SYRINGE 0 ML IV SCH (06:07)
[2019-07-27] MEDS: LEVOTHYROXINE SODIUM 50 MCG TABLET PO SCH (06:08)
[2019-07-27] MEDS ORDERED: POTASSIUM CHLORIDE / WTR 10 MEQ/100 ML PLCT IV ONE (07:11)
[2019-07-27] MEDS: POTASSIUM CHLORIDE 20 MEQ TABCR PO SCH ×3 (07:53→21:09)
[2019-07-27] MEDS: RIFAXIMIN 550 MG TABLET PO SCH ×2 (07:53→21:13)
[2019-07-27] MEDS: ESCITALOPRAM OXALATE 10 MG TAB PO SCH (07:53)
[2019-07-27] MEDS: ZINC SULFATE 220 MG CAPSULE PO SCH (07:54)
[2019-07-27] MEDS: PANTOprazole 40 MG TAB PO SCH ×2 (07:54→21:09)
[2019-07-27] MEDS: FERROUS SULFATE 325 MG TAB PO SCH ×2 (07:54→17:43)
[2019-07-27] MEDS: NYSTATIN CR 15 GM TUBE EXT SCH ×2 (07:55→21:14)
[2019-07-27] MEDS: FLUTICASONE PROPIONATE NA SPR 16 GM BTL SCH (07:55)
[2019-07-27] MEDS: LACTULOSE SYRUP 10 GM/15 ML BTL 960 ML PO SCH (07:56)
[2019-07-27] MEDS: INSULIN GLARGINE SOLOSTAR 100 UNITS/ML 3 ML PEN SC SCH (07:57)
[2019-07-27] MEDS ORDERED: PHYTONADIONE 5 MG in SODIUM CHLORIDE 0.9% 50 ML IV ONE (08:00)
[2019-07-27] MEDS ORDERED: INSULIN ASPART 100 UNITS/ML 3 ML PEN SC ONE (08:00)
[2019-07-27] MEDS: THIAMINE HCL 200 MG in SODIUM CHLORIDE 0.9% 50 ML IV SCH ×2 (08:45→21:10)
--- NOTE | 2019-07-27 09:35 | Gastroenterology Progress Note ---
Date of Service July 27, 2019 Assessment & Plan (1) Acute hepatic encephalopathy: (2) Liver cirrhosis: Pt is a 73 y/o female w hx of NAFLD cirrhosis s/p TIPS placement, previous complications w GAVE, edema currently admitted for hepatic encephalopathy. Negative infectious workup so far and Head CT unremarkable. Daughter said Lactulose not titrated based on BMs when pt was in rehab. Her Hypothyroidism is also not well controlled (TSH). Thus these can be factors in causing her AMS. Mental status improving, she alert, mostly oriented to self and time; able to follow commands today - ? unclear indication for Ceftriaxone, recommend DC - Continue Lactulose PO (titrate for goal BM 3-5/day). Continue Xifaxan, Zinc - Hold diuretics - F/U blood cx -> no growth - Gentle IVF support - Trend Troponin -> normalized - Hypothyroidism management per primary and ICU teams - Daughter (Susan Duarte) contact information: [phone] (c); [phone] (office) - No new GI plans at this time; will watch peripherally, pls call prn if new concerns/questions Admission and Anticipated Discharge Date Admission Date: July 25, 2019 Anticipated date of discharge: 07/29/19 Supervising Physician Co-Signing Physician Notes I have seen and examined the patient with BARRY Carver whose note reflects our findings and plan. Subjective Pt more alert, in bed. Able to take in PO meds, liquids. Denies any pain. She is oriented to self, time RN reports she continously puts on loose BMs Review of Systems Review of Systems: All systems reviewed & are unremarkable except as noted in HPI & below Physical Exam Constitutional: + thin and comfortable Eyes: PERRL, conjunctivae normal, anicteric sclerae ENMT: external ear and nose normal, oropharynx normal Respiratory: normal respiratory effort, lungs clear to auscultation Cardiovascular: RRR, no murmur, no edema Gastrointestinal (Abdomen): normal bowel sounds, soft, nontender, no hepatosplenomegaly Skin: no rashes, warm and dry + jaundice Neurologic: alert, oriented to self and time only, following commands Lymphatic: no lymphedema Results & Data ([facility]) Vital Signs (Past 12 Hours) Vital Signs Temp Pulse Resp BP Pulse Ox 07/27/19 07:13 36.3 C L 96 H 18 124/57 L 100 07/27/19 03:22 36.5 C 100 H 19 131/57 L 96 07/26/19 23:52 36.6 C 103 H 17 123/52 L 100 (1) Liver cirrhosis Ascites presence: unspecified Hepatic cirrhosis type: unspecified hepatic cirrhosis Qualified Code(s): K74.60 - Unspecified cirrhosis of liver
--- NOTE | 2019-07-27 10:51 | Hospitalist Progress Note ---
Date of Service July 27, 2019 Assessment & Plan (1) Acute hepatic encephalopathy: resolving nicely. still mildly confused but much improved from prior. cont rifaximin. cont lactulose, titrate for 3 BMs/day. lactulose dose DECREASED today by GI due to frequent stools. exact reason she developed hepatic encephalopathy is uncertain. by history she may not have been stooling well at [facility] but [id number] she was receiving all of her usual meds. decompensated hypothyroidism could contribute. I don't see obvious infectious process - urine cx thus far negative; blood cx's negative; COVID-19 test negative; cxr w/o pneumonia. (2) Liver cirrhosis: 2nd Leos s/p TIPS x 2 -- initial in [place]; redo at [facility] portal doppler with patent TIPS no significant ascites or volume overload cont rifaximin and lactulose INR worse today - vit K deficiency?? give vitamin K 5mg IV x 1; repeat INR am cont to hold diuretics (3) Addisons disease: currently on stress dose steroids 50mg TID. will decrease to 25mg TID. (4) Hypothyroidism: over last few months her TSH has been up/down constantly. on June 30 her TSH was nearly normal, now it is considerably high. suspect that the rises are seen when she has had a period of illness and may not have been receiving her meds (she was hospitalized for several days in [place] in late June). since the TSH was relatively normal just a few weeks ago I would leave dose at 50mcg/day and repeat TSH in 2-3 weeks. if still high on recheck then increase synthroid dose. other issue could be that of absorption. cannot rule out decompensated thyroid state as a contributor to hepatic encephalopathy. (5) Diabetic peripheral neuropathy associated with type 1 diabetes mellitus: pharmacy consult appreciated for management glycemic control adequate (6) Thrombocytopenia: 2nd to cirrhosis of the liver repeat CBC am for stability (7) Coagulopathy: inr continues to climb higher now 2.4 will give vitamin K 5mg IV x 1 if it improves with vitamin K then will give 2nd dose tomorrow if no response then this is due to worsening liver function in setting of her cirrhosis fortunately no signs of bleeding repeat INR am (8) Anorexia: ongoing likely due to liver disease itself she has temporal muscle wasting on exam suggesting chronic malnutrition minimal PO intake today; still looks dry give 1 liter of 1/2 NS with KCL then saline lock repeat BMP am (9) DVT prophylaxis: scds updated daughter Dr Susan Duarte on 07/25 updated pt's 07/26 PT, OT notes reviewed - may need rehab once again I discussed this w/ - he is not thrilled about that prospect; prefers she comes home and she can do outpatient therapy will see how next few days go questions answered Admission and Anticipated Discharge Date Admission Date: July 25, 2019 Subjective patient much more awake/alert today. knew it was 2019 but thought she was in "rehab." when asked the month she kept saying "2019". she ultimately could not name any month of the year. staff report very poor appetite. tele normal overnight. c/o being thirsty once again. Review of Systems Constitutional: no fever Respiratory: no cough and no dyspnea Cardiovascular: no chest pain Gastrointestinal: no abdominal pain Physical Exam Constitutional: + altered mental status (but MUCH MORE awake/alert today ); no acute distress Eyes: + scleral abnormality (Mild icterus ) ENMT: external ear and nose normal, oropharynx normal Respiratory: normal respiratory effort, lungs clear to auscultation Cardiovascular: Rate/Rhythm: regular rate and regular rhythm Heart Sounds: normal S1 and normal S2; no murmur Vessels: posterior tibial pulses present and dorsalis pedis pulses present; no JVD Extremities: no edema Gastrointestinal (Abdomen): normal bowel sounds, soft, nontender, no hepatosplenomegaly Neurologic: moves all extremities (5/5 strength b/l upper /lower exts) Motor/Sensory: + asterixis (marked improvement - minimal today ) Psychiatric: Orientation: alert and oriented to person; + not oriented to place and + not oriented to time Results & Data Results & Data ([facility]) Vital Signs (Past 12 Hours) Vital Signs Temp Pulse Resp BP Pulse Ox 07/27/19 07:13 36.3 C L 96 H 18 124/57 L 100 07/27/19 03:22 36.5 C 100 H 19 131/57 L 96 07/26/19 23:52 36.6 C 103 H 17 123/52 L 100 Laboratory Results Laboratory Results - last 24 hr 07/26/19 07/26/19 07/26/19 12:50 14:41 14:41 PT INR Sodium Potassium Chloride Carbon Dioxide Anion Gap BUN Creatinine Est Cr Clr Drug Dosing Est GFR ( Amer) Est GFR (Non-Af Amer) BUN/Creatinine Ratio Glucose POC Glucose 164 H Calcium Ferritin Ammonia 16.0 C-Reactive Protein 0.46 H Vitamin B12 Urine Color Urine Appearance Urine pH Ur Specific [place] Urine Protein Urine Glucose (UA) Urine Ketones Urine Blood Urine Nitrite Urine Bilirubin Urine Urobilinogen Ur Leukocyte Esterase Urine WBC (Auto) Urine RBC (Auto) U Hyaline Cast (Auto) U Epithel Cells (Auto) Urine Bacteria (Auto) Urine Yeast COVID-19 PCR SARS-CoV-2 RNA (RT-PCR) 07/26/19 07/26/19 07/26/19 14:41 14:41 16:22 PT INR Sodium Potassium Chloride Carbon Dioxide Anion Gap BUN Creatinine Est Cr Clr Drug Dosing Est GFR ( Amer) Est GFR (Non-Af Amer) BUN/Creatinine Ratio Glucose POC Glucose 205 H Calcium Ferritin 219.3 Ammonia C-Reactive Protein Vitamin B12 1718 H Urine Color Urine Appearance Urine pH Ur Specific [place] Urine Protein Urine Glucose (UA) Urine Ketones Urine Blood Urine Nitrite Urine Bilirubin Urine Urobilinogen Ur Leukocyte Esterase Urine WBC (Auto) Urine RBC (Auto) U Hyaline Cast (Auto) U Epithel Cells (Auto) Urine Bacteria (Auto) Urine Yeast COVID-19 PCR SARS-CoV-2 RNA (RT-PCR) 07/26/19 07/26/19 07/26/19 16:33 21:54 23:37 PT INR Sodium Potassium Chloride Carbon Dioxide Anion Gap BUN Creatinine Est Cr Clr Drug Dosing Est GFR ( Amer) Est GFR (Non-Af Amer) BUN/Creatinine Ratio Glucose POC Glucose 238 H 244 H Calcium Ferritin Ammonia C-Reactive Protein Vitamin B12 Urine Color Dark Yellow Urine Appearance Cloudy A Urine pH 5.0 Ur Specific [place] 1.028 Urine Protein 1+ H Urine Glucose (UA) Negative Urine Ketones Negative Urine Blood 3+ H Urine Nitrite Negative Urine Bilirubin Negative Urine Urobilinogen Negative Ur Leukocyte Esterase 1+ H Urine WBC (Auto) >30 H Urine RBC (Auto) >30 H U Hyaline Cast (Auto) 5-10 H U Epithel Cells (Auto) 0-5 Urine Bacteria (Auto) Negative Urine Yeast Budding A COVID-19 PCR SARS-CoV-2 RNA (RT-PCR) 07/26/19 07/26/19 07/27/19 Unknown Unknown 04:33 PT 24.0 H INR 2.4 H Sodium Potassium Chloride Carbon Dioxide Anion Gap BUN Creatinine Est Cr Clr Drug Dosing Est GFR ( Amer) Est GFR (Non-Af Amer) BUN/Creatinine Ratio Glucose POC Glucose Calcium Ferritin Ammonia C-Reactive Protein Vitamin B12 Urine Color Urine Appearance Urine pH Ur Specific [place] Urine Protein Urine Glucose (UA) Urine Ketones Urine Blood Urine Nitrite Urine Bilirubin Urine Urobilinogen Ur Leukocyte Esterase Urine WBC (Auto) Urine RBC (Auto) U Hyaline Cast (Auto) U Epithel Cells (Auto) Urine Bacteria (Auto) Urine Yeast COVID-19 PCR NEGATIVE SARS-CoV-2 RNA (RT-PCR) Cancelled 07/27/19 07/27/19 07/27/19 04:33 06:08 07:30 PT INR Sodium 142 Potassium 3.0 L D Chloride 106 Carbon Dioxide 30 Anion Gap 6.0 BUN 47 H Creatinine 1.59 H Est Cr Clr Drug Dosing 26.1 Est GFR ( Amer) 36.9 Est GFR (Non-Af Amer) 31.9 BUN/Creatinine Ratio 29.4 H Glucose 145 H POC Glucose 161 H 138 H Calcium 8.4 L Ferritin Ammonia C-Reactive Protein Vitamin B12 Urine Color Urine Appearance Urine pH Ur Specific [place] Urine Protein Urine Glucose (UA) Urine Ketones Urine Blood Urine Nitrite Urine Bilirubin Urine Urobilinogen Ur Leukocyte Esterase Urine WBC (Auto) Urine RBC (Auto) U Hyaline Cast (Auto) U Epithel Cells (Auto) Urine Bacteria (Auto) Urine Yeast COVID-19 PCR SARS-CoV-2 RNA (RT-PCR) PG Care Time/CCT Total # of Minutes Spent Total Time Spent with Patient: Total time spent is greater than 50% in coordination of care (as documented) at patient's floor/unit and/or counseling patient: Coding Level of Care Code 15087 Subseq Hosp Care Lvl 3 Diagnoses Acute hepatic encephalopathy K72.00 Liver cirrhosis K74.60 Ascites presence: unspecified Hepatic cirrhosis type: unspecified hepatic cirrhosis Addisons disease E27.1 Hypothyroidism E03.9 Hypothyroidism type: acquired Diabetic peripheral neuropathy associated with type 1 diabetes mellitus E10.42 Thrombocytopenia D69.6 Coagulopathy D68.9 Anorexia R63.0 DVT prophylaxis Z29.9 (1) Hypothyroidism Hypothyroidism type: acquired Qualified Code(s): E03.9 - Hypothyroidism, unspecified (2) Liver cirrhosis Ascites presence: unspecified Hepatic cirrhosis type: unspecified hepatic cirrhosis Qualified Code(s): K74.60 - Unspecified cirrhosis of liver
[2019-07-27] MEDS ORDERED: SODIUM CHLOR 0.45% + 20MEQ KCL 20 MEQ/1,000 ML BAG IV SCH (11:00)
[2019-07-27] MEDS ORDERED: INSULIN ASPART 100 UNITS/ML 3 ML PEN SC SCH (11:30)
--- NOTE | 2019-07-27 12:10 | Pharmacy Report ---
Pharmacy Glycemic Short Note 2 - Date of Service July 27, 2019 - Glycemic Short BSG Results (Last 24 hours): 07/26/19 07/26/19 07/26/19 12:50 16:22 21:54 Glucose POC Glucose 164 H 205 H 238 H 07/26/19 07/27/19 07/27/19 23:37 04:33 06:08 Glucose 145 H POC Glucose 244 H 161 H 07/27/19 07/27/19 07:30 11:23 Glucose POC Glucose 138 H 139 H OUTPATIENT ANTIDIABETIC REGIMEN: * Tresiba 56 units qam * 22 units 70/30 ACHS (or possibly AC only, recently increased in June) * A1c: 8.3% 07-01-19 ASSESSMENT: 07/26: * BSG's increased yesterday PM, likely 2nd held Lantus in the AM, but trended down after larger Lantus dose admin w dinner * Steroids tapered again today, and diet ordered * At this point, patient is requiring significantly less insulin than outpatient regimen, but BSG's could increase 2nd ordered diet while on steroids * Will continue Lantus dose this AM and add scale this evening * Will leave Novolog parameters for now, but they may require adjustment if/when po intake occurs 07/25: * Patient well controlled over past 24 hours receiving 25 units of basal insulin * 15 units of lantus was again ordered this morning, however was held per RN discussion with provider. I will increase this evenings scale to account for this. * Patient remains NPO and hydrocortisone was decreased today PLAN FOR INPATIENT GLYCEMIC CONTROL: * Basal insulin * Lantus 25 units SC this AM with additional 10 units tonight (if BSG >160 mg/dL) * Bolus insulin * NovoLog per scale ACHS or Q6hrs while NPO * Goal Range: Low 120 mg/dL - High 150 mg/dL * Correction Factor: 20 mg/dL/unit * Nutritional / Prandial insulin per carb ratio of 1 unit per 7 grams CHO consumed
[2019-07-27] MEDS: LACTULOSE SYRUP 30 GM/45 ML UDP PO SCH ×2 (13:44→21:04)
[2019-07-27] MEDS: HYDROCORTISONE SOD 25 MG in SYRINGE 0 ML IV SCH ×2 (14:21→21:10)
[2019-07-27 18:10] LABS: Appearance Urine Clear (Clear); Bacteria Urine Automated Negative (Negative); Blood Urine 3+ (Negative); Color Urine Dark Yellow; Epithelial Cell Urine Auto >30 /lpf (0-5); Glucose Urine UA Negative (Negative); Ketones Urine Negative (Negative); Leukocyte Esterase Urine 1+ (Negative); Nitrite Urine Negative (Negative); Protein Urine 1+ (Negative); Specific Gravity Urine 1.026 (1.000-1.030); Urobilinogen Urine Negative (Negative)
[2019-07-27 18:14] LABS: Bilirubin Urine Negative (Negative); Ictotest Urine Negative (Negative)
[2019-07-27 18:25] LABS: RBC Urine Automated >30 /hpf (0-4)
[2019-07-27] MEDS ORDERED: INSULIN GLARGINE SOLOSTAR 100 UNITS/ML 3 ML PEN SC SCH (21:00)
[2019-07-27] MEDS: GABAPENTIN 300 MG CAP PO SCH (21:10)
[2019-07-28] MEDS: HYDROCORTISONE SOD 25 MG in SYRINGE 0 ML IV SCH ×2 (05:42→14:17)
[2019-07-28] MEDS: LEVOTHYROXINE SODIUM 50 MCG TABLET PO SCH (05:42)
[2019-07-28] MEDS: UNIT DOSE COMPOUND PR SCH ×3 (05:43→22:51)
[2019-07-28 08:22] LABS: Hematocrit (blood only) 32.8 % (37-47); Hemoglobin 10.4 g/dL (12.0-16.0); Mean Corpuscular Hemoglobin 32.4 pg (25-34); Mean Corpuscular Hgb Conc 31.7 g/dL (32-36); Mean Corpuscular Volume 102.2 fL (80-100); RDW Coefficient of Variation 21.8 % (11.5-14.5); RDW Standard Deviation 82.4 fL (36.4-46.3); Red Blood Count 3.21 M/uL (4.2-5.4); White Blood Count 11.66 K/uL (4.8-10.8)
[2019-07-28 08:34] LABS: INR 2.1 (0.9-1.1); Prothrombin Time 21.7 Seconds (9.0-12.0)
[2019-07-28 08:36] LABS: Mean Platelet Volume 9.5 fL (7.4-10.4); Platelet Count 54 K/uL (130-400)
[2019-07-28 08:55] LABS: Albumin Globulin Ratio 0.6 (0.9-2); BUN Creatinine Ratio 29.7 (10-20); Bilirubin,Total 4.8 mg/dl (0.2-1); Calcium 8.8 mg/dl (8.5-10.1); Creatinine Clr Calc Pharmacy 28.4 ml/min; Est GFR (Non-African American) 35.3; Globulin 3.3 gm/dl (2.5-4.0); Magnesium 2.5 mg/dl (1.8-2.4); Potassium 4.1 mmol/L (3.5-5.1); Total Protein 5.3 gm/dl (6.4-8.2)
[2019-07-28] MEDS: ESCITALOPRAM OXALATE 10 MG TAB PO SCH (09:13)
[2019-07-28] MEDS: RIFAXIMIN 550 MG TABLET PO SCH ×2 (09:14→22:39)
[2019-07-28] MEDS: LACTULOSE SYRUP 30 GM/45 ML UDP PO SCH ×3 (09:14→22:35)
[2019-07-28] MEDS: ZINC SULFATE 220 MG CAPSULE PO SCH (09:14)
[2019-07-28] MEDS: PANTOprazole 40 MG TAB PO SCH ×2 (09:14→22:40)
[2019-07-28] MEDS: FERROUS SULFATE 325 MG TAB PO SCH ×2 (09:14→17:43)
[2019-07-28] MEDS ORDERED: PHYTONADIONE 5 MG in SODIUM CHLORIDE 0.9% 50 ML IV ONE (09:15)
[2019-07-28] MEDS: FLUTICASONE PROPIONATE NA SPR 16 GM BTL SCH (09:15)
[2019-07-28] MEDS: INSULIN GLARGINE SOLOSTAR 100 UNITS/ML 3 ML PEN SC SCH ×2 (09:16→22:35)
[2019-07-28] MEDS: INSULIN ASPART 100 UNITS/ML 3 ML PEN SC SCH ×4 (09:16→22:37)
[2019-07-28] MEDS: NYSTATIN CR 15 GM TUBE EXT SCH ×2 (09:17→22:41)
[2019-07-28] MEDS: THIAMINE HCL 200 MG in SODIUM CHLORIDE 0.9% 50 ML IV SCH ×2 (09:25→22:44)
--- NOTE | 2019-07-28 12:43 | Pharmacy Report ---
Pharmacy Glycemic Short Note 2 - Date of Service July 28, 2019 - Glycemic Short BSG Results (Last 24 hours): 07/27/19 07/27/19 07/28/19 16:28 20:39 07:34 Glucose POC Glucose 133 H 187 H 141 H 07/28/19 07/28/19 07:50 11:33 Glucose 140 H POC Glucose 213 H OUTPATIENT ANTIDIABETIC REGIMEN: * Tresiba 56 units qam * 22 units 70/30 ACHS (or possibly AC only, recently increased in June) * A1c: 8.3% 07-01-19 ASSESSMENT: 07/27: * BSGs well controlled over last 24 hrs. Patient did receive 51 units of insulin yesterday, however did not eat breakfast or lunch * Fasting BSG 141 this AM with 35 units basal insulin on board - pt will likely require a similar dose over next 24 hrs * Steroid dose was reduced yesterday (hydrocortisone 50mg IV Q 8 hrs --> 25mg IV Q 8 hrs) * Will following post-prandial BSG pattern to assess response to current CR given inconsistent PO intake. Current dose reasonable to continue 07/26: * BSG's increased yesterday PM, likely 2nd held Lantus in the AM, but trended d own after larger Lantus dose admin w dinner * Steroids tapered again today, and diet ordered * At this point, patient is requiring significantly less insulin than outpatient regimen, but BSG's could increase 2nd ordered diet while on steroids * Will continue Lantus dose this AM and add scale this evening * Will leave Novolog parameters for now, but they may require adjustment if/when po intake occurs 07/25: * Patient well controlled over past 24 hours receiving 25 units of basal insulin * 15 units of lantus was again ordered this morning, however was held per RN discussion with provider. I will increase this evenings scale to account for this. * Patient remains NPO and hydrocortisone was decreased today PLAN FOR INPATIENT GLYCEMIC CONTROL: * Basal insulin * Lantus SQ BID per scale * 0 units if BSG less than 110 * 10 units if BSG 110-140 * 15 units if BSG 140-180 * 20 units if BSG above 180 * Bolus insulin * NovoLog per scale ACHS or Q6hrs while NPO * Goal Range: Low 110 mg/dL - High 140 mg/dL * Correction Factor: 20 mg/dL/unit * Nutritional / Prandial insulin per carb ratio of 1 unit per 7 grams CHO consumed
--- NOTE | 2019-07-28 17:40 | Hospitalist Progress Note ---
Date of Service July 28, 2019 Assessment & Plan (1) Candidal UTI (urinary tract infection): likely was present on admission (initial u/a at time of admission w/ budding yeast on microscopy). she is NOT a candidate for -azole therapy (diflucan, voriconazole, etc) due to advanced cirrhosis. only option I see is CBI with amphotericin. will place 3-way hoff and start ampho wash. treat minimum 3 days, potentially up to 5 days. I believe her persistent leukocytosis, persistent delirium, and loss of appetite may be due to fungal UTI. (2) Acute hepatic encephalopathy: asterixis resolved. I believe the actual hepatic encephalopathy is resolved. ongoing confusion may be from fungal UTI. fungal UTI may have precipitated her hepatic encephalopathy. can't rule out decompensated hypothyroidism contributing as well. cont rifaximin. cont lactulose, titrate for 3 BMs/day. of note - COVID-19 testing, blood cx's, and cxr all negative/normal. (3) Liver cirrhosis: 2nd Leos advanced disease s/p TIPS x 2 -- initial in [place]; redo at [facility] portal doppler with patent TIPS no significant ascites or volume overload cont rifaximin and lactulose INR had worseened - suspected vit K deficiency as INR improved overnight with vitamin K supplementation will give additional vitamin K 5mg IV x 1 today with repeat INR am cont to hold diuretics - volume status is euvolemic (4) Addisons disease: currently on stress dose steroids 25mg TID. will lower to 20mg BID tomorrow. normal dosing -10mg am, 5mg pm (5) Hypothyroidism: over last few months her TSH has been up/down constantly. on June 30 her TSH was nearly normal, now it is considerably high. suspect that the rises are seen when she has had a period of illness and may not have been receiving her meds (she was hospitalized for several days in [place] in late June). since the TSH was relatively normal just a few weeks ago I would leave dose at 50mcg/day and repeat TSH in 2-3 weeks. if still high on recheck then increase synthroid dose. other issue could be that of absorption. cannot rule out decompensated thyroid state as a contributor to hepatic encephalopathy. (6) Diabetic peripheral neuropathy associated with type 1 diabetes mellitus: pharmacy consult appreciated for management glycemic control continues to be adequate (7) Thrombocytopenia: 2nd to cirrhosis of the liver platelets low but acceptable (8) Coagulopathy: 2nd to combination of advanced liver disease and suspected vitamin K deficiency s/p 5mg vit K on 07/26 give additional 5mg today repeat INR am (9) Anorexia: ongoing likely due to her liver disease itself fungal UTI likely contributing as well she has temporal muscle wasting on exam suggesting chronic malnutrition add MVI cont thiamine 200 BID (10) Severe protein-calorie malnutrition: add MVI add boost glucose control (11) Vitamin K deficiency: see "coagulopathy" above (12) DVT prophylaxis: scds updated daughter Dr Campjojo Duarte on 07/25 and 07/27 updated pt's 07/26 PT, OT notes reviewed - may need rehab once again but pt's and daughter do NOT want patient to go to rehab or SNF want home with HH this will need to be discussed again given her very poor progress, deconditi oning, etc Admission and Anticipated Discharge Date Admission Date: July 25, 2019 Subjective patient awake but still confused. long-term memory somewhat intact - knows she lives in [place], that daughter is auto glass installer physician. but couldn't tell me she had cirrhosis. she told me she had "cystic fibrosis." when asked month she said "2019". I told her the month was listed on the white board. she looked at it; I asked her again what month it was and she said "2019". thought she was "at [facility]" then said rehab. ate <50% of breakfast today. very tired. Review of Systems Constitutional: + fatigue and + anorexia; no fever and no chills Respiratory: no cough and no dyspnea Cardiovascular: no chest pain Gastrointestinal: + diarrhea/loose stools; no abdominal pain, no nausea and no vomiting Physical Exam Constitutional: + altered mental status (ongoing confusion ); no acute distress Eyes: + scleral abnormality (Mild icterus ) ENMT: external ear and nose normal, oropharynx normal Respiratory: normal respiratory effort, lungs clear to auscultation Cardiovascular: Rate/Rhythm: regular rate and regular rhythm Heart Sounds: normal S1 and normal S2; no murmur Vessels: posterior tibial pulses present and dorsalis pedis pulses present; no JVD Extremities: no edema Gastrointestinal (Abdomen): normal bowel sounds, soft, nontender, no hepatosplenomegaly Neurologic: Motor/Sensory: no asterixis Psychiatric: Orientation: alert and oriented to person; + not oriented to place and + not oriented to time Results & Data Results & Data ([facility]) Vital Signs (Past 12 Hours) Vital Signs Temp Pulse Pulse Resp BP Pulse Ox 07/28/19 17:14 100 H 07/28/19 15:22 36.8 C 91 H 20 152/80 H 98 07/28/19 10:55 36.5 C 111 H 20 145/80 H 94 07/28/19 08:04 36.6 C 90 20 130/73 100 07/28/19 07:27 84 Laboratory Results Laboratory Results - last 24 hr 07/27/19 07/27/19 07/28/19 20:39 Unknown 07:34 WBC RBC Hgb Hct MCV MCH MCHC RDW Std Deviation RDW Coeff of Anastasia Plt Count MPV PT INR Sodium Potassium Chloride Carbon Dioxide Anion Gap BUN Creatinine Est Cr Clr Drug Dosing Est GFR ( Amer) Est GFR (Non-Af Amer) BUN/Creatinine Ratio Glucose POC Glucose 187 H 141 H Calcium Magnesium Total Bilirubin AST ALT Alkaline Phosphatase Total Protein Albumin Globulin Albumin/Globulin Ratio Urine Color Dark Yellow Urine Appearance Clear Urine pH 5.0 Ur Specific [place] 1.026 Urine Protein 1+ H Urine Glucose (UA) Negative Urine Ketones Negative Urine Blood 3+ H Urine Nitrite Negative Urine Bilirubin Negative Urine Urobilinogen Negative Ur Leukocyte Esterase 1+ H Urine WBC (Auto) 10-30 H Urine RBC (Auto) >30 H U Hyaline Cast (Auto) 5-10 H U Epithel Cells (Auto) >30 H Urine Bacteria (Auto) Negative Urine Yeast Budding A 07/28/19 07/28/19 07/28/19 07:50 07:50 07:50 WBC 11.66 H RBC 3.21 L Hgb 10.4 L Hct 32.8 L MCV 102.2 H MCH 32.4 MCHC 31.7 L RDW Std Deviation 82.4 H RDW Coeff of Anastasia 21.8 H Plt Count 54 L MPV 9.5 PT 21.7 H INR 2.1 H Sodium 137 Potassium 4.1 D Chloride 105 Carbon Dioxide 26 Anion Gap 7.0 BUN 43 H Creatinine 1.46 H Est Cr Clr Drug Dosing 28.4 Est GFR ( Amer) 41.0 Est GFR (Non-Af Amer) 35.3 BUN/Creatinine Ratio 29.7 H Glucose 140 H POC Glucose Calcium 8.8 Magnesium 2.5 H Total Bilirubin 4.8 H AST 62 H ALT 60 Alkaline Phosphatase 129 H Total Protein 5.3 L Albumin 2.0 L Globulin 3.3 Albumin/Globulin Ratio 0.6 L Urine Color Urine Appearance Urine pH Ur Specific [place] Urine Protein Urine Glucose (UA) Urine Ketones Urine Blood Urine Nitrite Urine Bilirubin Urine Urobilinogen Ur Leukocyte Esterase Urine WBC (Auto) Urine RBC (Auto) U Hyaline Cast (Auto) U Epithel Cells (Auto) Urine Bacteria (Auto) Urine Yeast 07/28/19 07/28/19 11:33 16:17 WBC RBC Hgb Hct MCV MCH MCHC RDW Std Deviation RDW Coeff of Anastasia Plt Count MPV PT INR Sodium Potassium Chloride Carbon Dioxide Anion Gap BUN Creatinine Est Cr Clr Drug Dosing Est GFR ( Amer) Est GFR (Non-Af Amer) BUN/Creatinine Ratio Glucose POC Glucose 213 H 166 H Calcium Magnesium Total Bilirubin AST ALT Alkaline Phosphatase Total Protein Albumin Globulin Albumin/Globulin Ratio Urine Color Urine Appearance Urine pH Ur Specific [place] Urine Protein Urine Glucose (UA) Urine Ketones Urine Blood Urine Nitrite Urine Bilirubin Urine Urobilinogen Ur Leukocyte Esterase Urine WBC (Auto) Urine RBC (Auto) U Hyaline Cast (Auto) U Epithel Cells (Auto) Urine Bacteria (Auto) Urine Yeast Diagnostic Findings urine cx - >[id number] CFU of fungus; ID to follow blood cx's negative PG Care Time/CCT Total # of Minutes Spent Total Time Spent with Patient: Total time spent is greater than 50% in coordination of care (as documented) at patient's floor/unit and/or counseling patient: Coding Level of Care Code 87991 Subseq Hosp Care Lvl 3 Diagnoses Candidal UTI (urinary tract infection) B37.49 Acute hepatic encephalopathy K72.00 Liver cirrhosis K74.60 Ascites presence: unspecified Hepatic cirrhosis type: unspecified hepatic cirrhosis Addisons disease E27.1 Hypothyroidism E03.9 Hypothyroidism type: acquired Diabetic peripheral neuropathy associated with type 1 diabetes mellitus E10.42 Thrombocytopenia D69.6 Coagulopathy D68.9 Anorexia R63.0 Severe protein-calorie malnutrition E43 Vitamin K deficiency E56.1 DVT prophylaxis Z29.9 (1) Hypothyroidism Hypothyroidism type: acquired Qualified Code(s): E03.9 - Hypothyroidism, unspecified (2) Liver cirrhosis Ascites presence: unspecified Hepatic cirrhosis type: unspecified hepatic cirrhosis Qualified Code(s): K74.60 - Unspecified cirrhosis of liver
[2019-07-28] MEDS: AMPHOTERICIN B 50 MG in WATER, STERILE 1,000 ML IR SCH (18:52)
[2019-07-28] MEDS: GABAPENTIN 300 MG CAP PO SCH (22:40)
[2019-07-29] MEDS: UNIT DOSE COMPOUND PR SCH (06:26)
[2019-07-29] MEDS: LEVOTHYROXINE SODIUM 50 MCG TABLET PO SCH (06:26)
[2019-07-29 06:39] LABS: INR 2.1 (0.9-1.1); Prothrombin Time 21.5 Seconds (9.0-12.0)
[2019-07-29 07:08] LABS: BUN Creatinine Ratio 26.4 (10-20); Calcium 8.7 mg/dl (8.5-10.1); Creatinine Clr Calc Pharmacy 20.2 ml/min; Est GFR (African American) 27.2; Est GFR (Non-African American) 23.4; Potassium 3.9 mmol/L (3.5-5.1)
[2019-07-29] MEDS: INSULIN ASPART 100 UNITS/ML 3 ML PEN SC SCH ×4 (08:24→20:54)
[2019-07-29] MEDS: INSULIN GLARGINE SOLOSTAR 100 UNITS/ML 3 ML PEN SC SCH ×2 (08:25→22:01)
[2019-07-29] MEDS: ZINC SULFATE 220 MG CAPSULE PO SCH (08:26)
[2019-07-29] MEDS: HYDROCORTISONE 10 MG TAB PO SCH ×2 (08:26→17:18)
[2019-07-29] MEDS: PANTOprazole 40 MG TAB PO SCH ×2 (08:26→22:01)
[2019-07-29] MEDS: LACTULOSE SYRUP 30 GM/45 ML UDP PO SCH ×3 (08:26→21:59)
[2019-07-29] MEDS: RIFAXIMIN 550 MG TABLET PO SCH ×2 (08:27→22:00)
[2019-07-29] MEDS: FERROUS SULFATE 325 MG TAB PO SCH ×2 (08:27→17:18)
[2019-07-29] MEDS: ESCITALOPRAM OXALATE 10 MG TAB PO SCH (08:27)
[2019-07-29] MEDS ORDERED: PHYTONADIONE 5 MG in SODIUM CHLORIDE 0.9% 50 ML IV ONE (08:30)
[2019-07-29] MEDS: THIAMINE HCL 200 MG in SODIUM CHLORIDE 0.9% 50 ML IV SCH ×2 (08:32→21:59)
[2019-07-29] MEDS: FLUTICASONE PROPIONATE NA SPR 16 GM BTL SCH (08:33)
[2019-07-29] MEDS: NYSTATIN CR 15 GM TUBE EXT SCH ×2 (08:40→22:01)
--- NOTE | 2019-07-29 09:25 | Hospitalist Progress Note ---
Date of Service July 29, 2019 Assessment & Plan (1) Acute renal insufficiency: Rise from 1.4 to 2 and then 2.4 later today. FeNa <1. Urine Na 10. Urine micro bland - no casts. Volume depletion vs hepatorenal syndrome in differential. No evidence of obstruction on CT abd/pelvis today. Formal nephrology consultation requested - patient evaluated by Dr Rosales. Appreciate his assistance. Recs - Octreotide 100mg q8h. Normosol at 125cc/hr overnight. Repeat BMP am. If no improvement with fluid challenge then begin albumin IV tomorrow (1gm/kg/day). Can defer on midodrine since BP is normal. (2) Candidal UTI (urinary tract infection): likely was present on admission (initial u/a at time of admission w/ budding yeast on microscopy). 2nd to candidal glabrata. she is NOT a candidate for -azole therapy (diflucan, voriconazole, etc) due to advanced cirrhosis. thus, day #2 of CBI with amphotericin. would treat 5-7 days. I believe her persistent leukocytosis, persistent delirium, and loss of appetite may be due to fungal UTI. (3) Acute hepatic encephalopathy: asterixis resolved. ammonia level normal x 3 days. remains on rifaximin and lactulose - latter titrated for at least 3 BMs/day. ongoing confusion may be from fungal UTI. gabapentin could contribute to confusion in the setting of acute renal failure. fungal UTI may have precipitated her hepatic encephalopathy. can't rule out decompensated hypothyroidism contributing as well. consider diagnostic paracentesis to r/o SBP in light of acute renal failure and ?hepatorenal syndrome although she has had no abdominal pain. of note - COVID-19 testing, blood cx's, and cxr all negative/normal. (4) Liver cirrhosis: 2nd Leos advanced disease s/p TIPS x 2 -- initial in [place]; redo at [facility] portal doppler with patent TIPS [id number] has mild-moderate ascites on CT abd/pelvis today cont rifaximin and lactulose INR had worsened during this admission - due to advancing liver disease? vitamin K deficiency? both? will give additional vitamin K 5mg IV x 1 today with repeat INR am cont to hold diuretics due to intravascular volume contraction. (5) Addisons disease: s/p stress dose steroids this admission. lower steroids to 20mg BID today. normal dosing -10mg am, 5mg pm (6) Hypothyroidism: over last few months her TSH has been up/down constantly. on June 30 her TSH was nearly normal, now it is considerably high. suspect that the rises are seen when she has had a period of illness and may not have been receiving her meds (she was hospitalized for several days in [place] in late June). since the TSH was relatively normal just a few weeks ago I would leave dose at 50mcg/day and repeat TSH in 2-3 weeks. if still high on recheck then increase synthroid dose. other issue could be that of absorption. cannot rule out decompensated thyroid state as a contributor to hepatic encephalopathy. 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 s/p 5mg vit K on 07/26, 07/27 and 07/28 give additional 5mg today repeat INR am (10) Anorexia: ongoing likely due to her liver disease itself fungal UTI likely contributing as well she has temporal muscle wasting on exam suggesting chronic malnutrition cont MVI cont thiamine 200 BID (11) Severe protein-calorie malnutrition: MVI boost BID (12) Vitamin K deficiency: see "coagulopathy" above (13) Hyponatremia: 2nd to acute renal failure repeat BMP am (14) Back pain: muscular - lumbar region heat lidoderm patches prn (15) DVT prophylaxis: scds updated daughter Dr Susan Duarte on 07/25, 07/27 and then again today updated pt's 07/26 told her daughter that acute renal failure developed overnight. discussed possible differential including intravascular volume depletion vs hepatorenal syndrome. reviewed CT results. discussed plan of care moving forward including nephrology consult and GI consult. questions answered. PT, OT notes reviewed - may need rehab once again but pt's and daughter do NOT want patient to go to rehab or SNF want home with HH this will need to be discussed again given her very poor progress, deconditioning, etc Admission and Anticipated Discharge Date Admission Date: July 25, 2019 Subjective saw patient twice today. first visit was this am during morning rounds. patient ate 50% of breakfast. she denied any complaints - no chest pain, abd pain, nausea, dyspnea. she remained confused -- knew it was 2019, but again could not tell me the month, why she was in the hospital, or where she was. 2nd visit was later in the day. apparently at one point the patient c/o back pain, then developed nausea. both symptoms resolved. when I came to recheck her she did indeed c/o mild lumbar back pain. no nausea or emesis, however. Review of Systems Constitutional: + fatigue and + anorexia Respiratory: no dyspnea Cardiovascular: no chest pain Gastrointestinal: + nausea; no abdominal pain and no vomiting Physical Exam Constitutional: + altered mental status (No change in confusion ); no acute distress Eyes: + scleral abnormality (Mild icterus ) ENMT: Mouth: + dry oral mucous membranes (Modest ) Respiratory: normal respiratory effort, lungs clear to auscultation Cardiovascular: Rate/Rhythm: regular rate and regular rhythm Heart Sounds: normal S1 and normal S2; no murmur Vessels: posterior tibial pulses present and dorsalis pedis pulses present; no JVD Extremities: no edema Gastrointestinal (Abdomen): Inspection/Auscultation: + abdomen distended and normal bowel sounds Percussion/Palpation: abdomen nontender and no hepatosplenomegaly upper abdomen firm to touch; body wall edema? Musculoskeletal: lumbar spine - tender paraspinal areas b/l Neurologic: Motor/Sensory: no asterixis Psychiatric: Orientation: alert and oriented to person; + not oriented to place and + not oriented to time Results & Data Results & Data ([facility]) Vital Signs (Past 12 Hours) Vital Signs Temp Pulse Pulse Resp BP BP Pulse Ox 07/29/19 07:28 36.4 C L 88 20 118/76 92 07/29/19 07:26 84 07/29/19 04:14 37.0 C 90 18 130/71 94 07/28/19 23:37 36.6 C 94 H 18 137/79 97 07/28/19 22:20 90 Laboratory Results Laboratory Results - last 24 hr 07/28/19 07/28/19 07/28/19 11:33 16:17 20:22 PT INR Sodium Potassium Chloride Carbon Dioxide Anion Gap BUN Creatinine Est Cr Clr Drug Dosing Est GFR ( Amer) Est GFR (Non-Af Amer) BUN/Creatinine Ratio Glucose POC Glucose 213 H 166 H 197 H Calcium Ammonia 07/28/19 07/29/19 07/29/19 22:10 06:20 06:20 PT 21.5 H INR 2.1 H Sodium 133 L Potassium 3.9 Chloride 100 Carbon Dioxide 25 Anion Gap 8.0 BUN 54 H Creatinine 2.05 H D Est Cr Clr Drug Dosing 20.2 Est GFR ( Amer) 27.2 Est GFR (Non-Af Amer) 23.4 BUN/Creatinine Ratio 26.4 H Glucose 111 H POC Glucose 180 H Calcium 8.7 Ammonia 07/29/19 07/29/19 06:20 07:34 PT INR Sodium Potassium Chloride Carbon Dioxide Anion Gap BUN Creatinine Est Cr Clr Drug Dosing Est GFR ( Amer) Est GFR (Non-Af Amer) BUN/Creatinine Ratio Glucose POC Glucose 100 H Calcium Ammonia 14.2 PG Care Time/CCT Total # of Minutes Spent Total Time Spent with Patient: Total time spent is greater than 50% in coordination of care (as documented) at patient's floor/unit and/or counseling patient: Coding Level of Care Code 99626 Subseq Hosp Care Lvl 3 Diagnoses Acute renal insufficiency N28.9 Candidal UTI (urinary tract infection) B37.49 Acute hepatic encephalopathy K72.00 Liver cirrhosis K74.60 Ascites presence: unspecified Hepatic cirrhosis type: unspecified hepatic cirrhosis Addisons disease E27.1 Hypothyroidism E03.9 Hypothyroidism type: acquired Diabetic peripheral neuropathy associated with type 1 diabetes mellitus E10.42 Thrombocytopenia D69.6 Coagulopathy D68.9 Anorexia R63.0 Severe protein-calorie malnutrition E43 Vitamin K deficiency E56.1 Hyponatremia E87.1 Back pain M54.5 Back pain location: low back pain Chronicity: acute Back pain laterality: bilateral Sciatica presence: without sciatica DVT prophylaxis Z29.9 (1) Hypothyroidism Hypothyroidism type: acquired Qualified Code(s): E03.9 - Hypothyroidism, unspecified (2) Liver cirrhosis Ascites presence: unspecified Hepatic cirrhosis type: unspecified hepatic cirrhosis Qualified Code(s): K74.60 - Unspecified cirrhosis of liver (3) Back pain Back pain location: low back pain Chronicity: acute Back pain laterality: bilateral Sciatica presence: without sciatica Qualified Code(s): M54.5 - Low back pain
[2019-07-29 10:03] LABS: Appearance Urine Turbid (Clear); Bilirubin Urine Negative (Negative); Blood Urine 3+ (Negative); Color Urine Yellow; Glucose Urine UA Negative (Negative); Ketones Urine Negative (Negative); Leukocyte Esterase Urine 3+ (Negative); Nitrite Urine Negative (Negative); Protein Urine 2+ (Negative); Urobilinogen Urine Negative (Negative)
[2019-07-29 10:23] LABS: Bacteria Urine 1+ (Negative)
--- NOTE | 2019-07-29 10:23 | Pharmacy Report ---
Pharmacy Glycemic Short Note 2 - Date of Service July 29, 2019 - Glycemic Short BSG Results (Last 24 hours): 07/28/19 07/28/19 07/28/19 11:33 16:17 20:22 Glucose POC Glucose 213 H 166 H 197 H 07/28/19 07/29/19 07/29/19 22:10 06:20 07:34 Glucose 111 H POC Glucose 180 H 100 H OUTPATIENT ANTIDIABETIC REGIMEN: * Tresiba 56 units qam * 22 units 70/30 ACHS (or possibly AC only, recently increased in June) * A1c: 8.3% 07-01-19 ASSESSMENT: 07/28 * BSGs have ranged 100-213 over last 24 hrs, most BSGs less than 180 however * Over last 24 hrs, 63 units of insulin administered while patient tolerating a diet (did consume 3 meals yesterday) * Fasting BSG at goal (FBS 100) with 35 units basal insulin on board - will continue similar dose * Post-prandial BSGs adequately controlled w/ current CF/CR * Hydrocortisone dose again titrated down. Now ordered 20mg PO BID w/ meals (Home regimen provided 10mg w/ breakfast and 5mg w/ PM meal) 07/27 * BSGs well controlled over last 24 hrs. Patient did receive 51 units of insulin yesterday, however did not eat breakfast or lunch * Fasting BSG 141 this AM with 35 units basal insulin on board - pt will likely require a similar dose over next 24 hrs * Steroid dose was reduced yesterday (hydrocortisone 50mg IV Q 8 hrs --> 25mg IV Q 8 hrs) * Will follow post-prandial BSG pattern to assess response to current CR given inconsistent PO intake. Current dose reasonable to continue 07/26 * BSG's increased yesterday PM, likely 2nd held Lantus in the AM, but trended down after larger Lantus dose admin w dinner * Steroids tapered again today, and diet ordered * At this point, patient is requiring significantly less insulin than outpatient regimen, but BSG's could increase 2nd ordered diet while on steroids * Will continue Lantus dose this AM and add scale this evening * Will leave Novolog parameters for now, but they may require adjustment if/when po intake occurs PLAN FOR INPATIENT GLYCEMIC CONTROL: * Basal insulin * Lantus SQ BID per scale * 0 units if BSG less than 110 * 15 units if BSG 110-180 * 20 units if BSG above 180 * Bolus insulin * NovoLog per scale ACHS or Q6hrs while NPO * Goal Range: Low 110 mg/dL - High 140 mg/dL * Correction Factor: 18 mg/dL/unit * Nutritional / Prandial insulin per carb ratio of 1 unit per 6 grams CHO consumed
[2019-07-29 10:40] LABS: Creatinine Urine Random 21.5 mg/dl
--- NOTE | 2019-07-29 10:43 | CT Scan Report ---
ABDOMEN AND PELVIS CT WITHOUT CONTRAST CT DOSE: 914.59 mGycm HISTORY: cirrhosis; abdominal bloating; ascites/hematoma? TECHNIQUE: Multiaxial CT images of the abdomen and pelvis were performed without contrast. A dose lo wering technique was utilized adhering to the principles of ALARA. COMPARISON STUDY: None. FINDINGS: Large hiatus hernia containing the proximal stomach. Small bilateral pleural effusions. Low er lobe consolidation favors compressive atelectasis from the pleural effusions. No pneumoperitoneum. No pneumatosis. No suspicious lytic are blastic osseous lesions. Evidence for prior TIPS procedure. Nodular contour to the liver consistent with cirrhosis. There is a round 8 mm hypodense lesion within the left hepatic lobe. There is also a round 1.6 cm hypodense lesion within the right kidney. These are incompletely characterized on this noncontrast study but favor cysts. Epigastric surgical clips a re noted. Small to moderate amount of ascites. The bladder is decompressed by Fields catheter. This li maria de jesus accounts for the gas within the bladder lumen. Moderate body wall edema. Bilateral nephrolithias is. No ureteral stones. No hydronephrosis. The gallbladder is not well visualized due to the ascites. Colonic diverticulosis. Suboptimal evaluation for bowel pathology due to the lack of intravenous and oral contrast. Bowel wall thickening/edema involving the majority of the colon, rectum, and jejunal loops. No dilated loops of bowel to suggest an obstruction. Diffuse mesenteric edema is noted. No ret roperitoneal lymphadenopathy. Normal caliber abdominal aorta. The visualized appendix is unremarkable . There diverticulum within the duodenum. Calcification within the right side of the pelvis on image 292 appears to be vascular. IMPRESSION: 1. Large hiatus hernia containing the proximal stomach. 2. Small bilateral pleural effusions. 3. Sclerotic liver with a small to moderate amount of ascites. 4. Moderate body wall edema. 5. Bilateral nephrolithiasis. No definite ureteral stones. No hydronephrosis. 6. Bowel wall thickening/edema involving the majority of the colon, rectum, and jejunal loops. This i s most pronounced within the rectum which could be related to underlying hemorrhoids. This is difficu lt to assess on this noncontrast study. In addition, this may be due to the patient's diffuse [place] state. An enterocolitis/proctitis could also have a similar appearance in the appropriate clinical setting. 7. Prior TIPS procedure. ACT 112: Negative or not required by law. Electronically signed by: Abner Crowder M.D. 07/29/2019 10:42 AM
[2019-07-29] MEDS ORDERED: ALBUMIN 25% 100 ML IV SCH ×2 (11:15→12:00)
[2019-07-29] MEDS ORDERED: INSULIN GLARGINE SOLOSTAR 100 UNITS/ML 3 ML PEN SC ONE (11:30)
[2019-07-29] MEDS ORDERED: MIDODRINE HCL 2.5 MG TAB PO SCH (12:00)
[2019-07-29] MEDS: OCTREOTIDE ACETATE 100 MCG/ML VIAL SQ SCH ×2 (12:21→22:09)
[2019-07-29] MEDS: NYSTATIN SUSP 500,000 U/5 ML UDC MT SCH ×3 (13:49→21:59)
[2019-07-29] MEDS: NORMOSOL-R 1,000 ML IV SCH (16:28)
--- NOTE | 2019-07-29 16:49 | Nephrology Consultation ---
Date of Consultation July 29, 2019 Assessment & Plan (1) Acute renal insufficiency: Medical history notable for DMII, adrenal insufficiency, hypothyroidism, chronic back pain related to OA/DDD, iron deficiency anemia, and cirrhosis. Cirrhosis attributed to FISCHER. Complications of cirrhosis include hepatitic encephalopathy, ascites (no recent paracentesis), and esophageal varices. TIPS procedure performed initially in 2013 with revision in 2016. Current MELD 20. aNa was admitted with hepatic encephalopathy and possible abiodun UTI. Is is being treated for both with some improvement but persistent confusion. She is not able to provide a reliable history. Oral intake is poor. Medical history notable for progressive weight loss and weakness. Infectious work up notable for Abiodun in urine but otherwise negative cultures. No diagnostic paracentesis has been performed. Supportive care has included maintaining a relatively even fluid balance. Creatinine at baseline ~1.3 mg/dL. Creatinine jax from 1.46 to 2.0 mg/dL in past 24 hours. Naa is non-oliguric. UA is notable for 2+ protein, 3+ blood, 5- 10 RBC, 10-[address] scan of the abdomen demonstrated the kidneys to be unobstructed. Urinary catheter is draining clear urine. BP has been acceptable. Naa is not hypotensive. Electrolytes are appropriate. Exam suggests volume depletion despite slightly elevated blood pressure. Urine sodium is low at 10. Acute hepatorenal syndrome is very possible. There are other signs of portal hypertension including a small amount of ascites and persistent encephalopathy post TIPS. Exam suggests persistent volume depletion. Serum albumin is notably low. Some abdominal wall edema noted on CT of the abdomen. Clinical history of very poor oral intake noted. Triple therapy for HRS with octreotide, albumin, and midodrine was started earlier today. I discussed the plan of care with Dr. Ni. At this time, I think it would be reasonable to hold midodrine. BP is acceptable. Octreotide can be continued. Prior to starting albumin infusions, I have ordered a trial of infusion of norm osol @ 125 ml/hr. I/O's will be monitored. Metabolic profile will be rechecked in the AM. Medications are appropriately dosed for kidney function. Gabapentin dosing acceptable but cannot exclude as potentially contributing to encephalopathy. History of Present Illness Reason for Consultation: CARIE Requesting Physician: Roosevelt Ramos Attending Physician: Roosevelt Ramos History of Present Illness Naa Duarte is a 73-year-old female with diabetes mellitus II, chronic adrenal insufficiency, hypothyroidism, cirrhosis attributed to FISCHER. Cirrhosis is complicated by a ascites, esophageal varices, and hepatic encephalopathy. TIPS procedure was initially performed at [facility] in 2013. A revision procedure was performed at [facility] in 2016. Naa was admitted to [facility] from June 30-. She presented with weakness and was treated for iron deficiency anemia and hypercarbia. She was weak following hospitalization. After suffering a fall at home, she was admitted to [facility] for rehabilitation. Unfortunately, Naa developed confusion requiring transfer to [facility]. She presented to the ER on July 23 and was admitted with hepatic en cephalopathy. Mental status improved with treatment including lactulose. Unfortunately, she remains notably confused and unable to provide medical history. I discussed the patient's condition with Dr. Ni. Medical records were reviewed in detail. Nephrology consultation was requested today for acute renal insufficiency. Baseline creatinine in June had been 1.2-1.3 mg/dL. Creatinine was relatively stable at 1.46 mg/dL yesterday but increased at 2.0 mg/dL today. Naa is non- oliguric. BP has been acceptable. Metabolic profile is otherwise acceptable. Blood counts are stable. No specifically nephrotoxic medications noted. Amphotericin bladder rinses new. Ceftriaxone was provided at admission but discontinued after a negative infectious work up including blood cultures. Amphotericin bladder rinses have been started for suspected fungal UTI. Fields was changed yesterday afternoon. UA microscopy from this morning demonstratin+ protein, 3+ blood, 5-10 RBC, and 10-[address] scan of the abdomen demonstrates normal sized kidneys. A 1.6 cm hypodense lesion can be appreciated in the right kidney. A few very small calcifications noted in the renal pelvis. No evidence of obstruction noted. Small to moderate amount of ascites demonstrated and some body wall edema. Allergies Allergy/AdvReac Type Severity Reaction Status Date / Time midazolam [From Versed] Allergy Unknown Verified 07/24/19 23:05 montelukast [From Singulair] Allergy Unknown Verified 07/24/19 23:05 nitrofurantoin Allergy Unknown Verified 07/24/19 23:05 [From Macrodantin] Penicillins Allergy Unknown Verified 07/24/19 23:05 sulfamethoxazole Allergy Unknown Verified 07/24/19 23:05 [From Bactrim] terconazole [From Terazol 3] Allergy Unknown Verified 07/24/19 23:05 trimethoprim [From Bactrim] Allergy Unknown Verified 07/24/19 23:05 Home Medications Home Medications Medication Instructions Recorded Confirmed Type blood sugar diagnostic #450 ea 08/05/18 07/24/19 Rx escitalopram oxalate 10 mg tablet 15 mg PO DAILY #135 tab 08/05/18 07/24/19 Rx fluticasone propionate 50 2 sprays INTRANASAL DAILY #18.2 gm 08/05/18 07/24/19 Rx mcg/actuation nasal spray,suspension rifaximin 550 mg tablet 550 mg PO BID #180 tab 08/27/18 07/24/19 Rx levothyroxine 50 mcg tablet 50 mcg PO DAILY #90 tab 09/09/18 07/24/19 Rx pantoprazole 40 mg tablet,delayed 40 mg PO BID #180 tab 10/27/18 07/24/19 Rx release cholecalciferol (vitamin D3) 50 2,000 units PO DAILY 10/29/18 07/24/19 History mcg (2,000 unit) capsule lactulose 10 gram/15 mL oral 40 ml PO QID btl 12/30/18 07/24/19 History solution pen needle, diabetic 31 gauge x #100 ea 01/17/19 07/24/19 Rx 3/16" sub-q insulin device, 40 unit #30 ea 02/10/19 07/24/19 Rx Oxygen Home #1 ea 07/07/19 07/24/19 Rx ferrous sulfate 325 mg (65 mg 325 mg PO BID #60 tab 07/07/19 07/24/19 Rx iron) tablet acetaminophen [Tylenol] 650 mg PO Q4 PRN 07/24/19 07/24/19 History docusate sodium 100 mg PO BID PRN 07/24/19 07/24/19 History furosemide [Lasix] 40 mg PO BID 07/24/19 07/24/19 History gabapentin 300 mg PO HS 07/24/19 07/24/19 History hydrocortisone 5 mg PO .QDINNER 07/24/19 07/24/19 History hydrocortisone [Cortef] 10 mg PO .QBREAKFAST 07/24/19 07/24/19 History insulin glargine [Lantus U-100 56 unit SUBCUT DAILY 07/24/19 07/24/19 History Insulin] insulin lispro protamin-lispro 18 unit SUBCUT TIDM 07/24/19 07/24/19 History [Humalog Mix 75-25(U-100)Insuln] insulin regular human [Humulin R 0 unit SUBCUT TIDM 07/24/19 07/24/19 History Regular U-100 Insuln] melatonin 6 mg PO HS 07/24/19 07/24/19 History nystatin 1 applic TOPICAL BID 07/24/19 07/24/19 History polyethylene glycol 3350 [Miralax] 17 g PO DAILY PRN 07/24/19 07/24/19 History sennosides-docusate sodium 1 tab PO DAILY PRN 07/24/19 07/24/19 History [Senna-S] spironolactone 50 mg PO BID 07/24/19 07/24/19 History zinc sulfate 220 mg PO DAILY 07/24/19 07/24/19 History Patient History Medical History Adjustment disorder with mixed anxiety and depressed mood (Acute) Adrenal insufficiency, primary, autoimmune (Acute) Chronic low back pain Diabetic peripheral neuropathy associated with type 1 diabetes mellitus (Acute) Dyslipidemia (Acute) Esophageal varices (Acute) Fracture, sacrum/coccyx (Inactive) Gait disturbance, post-stroke (Acute) Hepatic encephalopathy (Acute) History of subarachnoid hemorrhage (Inactive) Hypothyroidism (Acute) Iron deficiency anemia (Acute) Iron deficiency anemia Mineral deficiency (Inactive) FISCHER (nonalcoholic steatohepatitis) (Acute) Obstructive sleep apnea (Acute) Osteoporotic compression fracture of spine (Acute) Recurrent UTI (Acute) Recurrent UTI Sepsis Type 2 diabetes mellitus Unspecified cirrhosis of liver (Acute) Vitamin D deficiency (Acute) Surgical History H/O: hysterectomy History of bladder surgery History of rectal surgery History of tubal ligation Hx of tonsillectomy S/P TIPS (transjugular intrahepatic portosystemic shunt) Family History Father Colon cancer Mother Diabetes Renal failure Social History Preferred Language: Taiwanese Communication Ability: Impaired Visual Impairment: No Limitations Hearing Ability: Normal Ceo & Founder Required: No Beliefs That Will Affect Care: None marital status: Current Living Situation: Rehab current occupational status: retired Feels Safe at Home: Declines to Answer Smoking Status: Unknown if ever smoked Hx Alcohol Use: No Hx Substance Use: No Childhood Exposure to Second-Hand Smoke: No Dental Care, Regularly: No Physical Activity Frequency: Does not Exercise Seatbelt Use: always Sunscreen Use: No Review of Systems Constitutional: + weakness, + anorexia and + weight loss; no fever and no fatigue Eyes: no problem reported Ear, Nose, Mouth, Throat: + dry mouth; no dysphagia Respiratory: no dyspnea and no problem reported Cardiovascular: no edema Gastrointestinal: + diarrhea/loose stools; no abdominal pain and no melena Genitourinary: no hematuria, no pelvic pain and no problem reported Musculoskeletal: + back pain; no problem reported Integumentary: + pruritus; no wounds Neurologic: no problem reported Psychiatric: no problem reported Physical Exam Constitutional: + frail appearing; no acute distress Eyes: sclerae not anicteric and no corneal abnormality ENMT: Mouth: + dry oral mucous membranes; no oral mucosal abnormality Neck: normal visual inspection and trachea midline Respiratory: normal respiratory effort; no respiratory distress Auscultation: lungs clear to auscultation bilaterally Cardiovascular: Rate/Rhythm: regular rate Heart Sounds: normal S1 and normal S2 Vessels: no JVD Extremities: no edema Gastrointestinal (Abdomen): Inspection/Auscultation: + abdomen distended Percussion/Palpation: abdomen nontender, no guarding, abdomen not rigid and abdomen not firm Musculoskeletal: Extremities: no cyanosis and no clubbing Skin: + jaundice and + ecchymosis Neurologic: Motor/Sensory: no tremor and no asterixis Psychiatric: Orientation: alert; + not oriented x 3 Results & Data Vital Signs (Past 12 Hours) Vital Signs Temp Pulse Pulse Resp BP Pulse Ox 07/29/19 15:59 36.8 C 87 18 150/82 H 91 07/29/19 15:16 93 H 07/29/19 11:22 36.5 C 96 H 20 119/77 96 07/29/19 07:28 36.4 C L 88 20 118/76 92 07/29/19 07:26 84 Laboratory Results Laboratory Results - last 24 hr 07/28/19 07/28/19 07/29/19 20:22 22:10 06:20 PT 21.5 H INR 2.1 H Sodium Potassium Chloride Carbon Dioxide Anion Gap BUN Creatinine Est Cr Clr Drug Dosing Est GFR ( Amer) Est GFR (Non-Af Amer) BUN/Creatinine Ratio Glucose POC Glucose 197 H 180 H Calcium Total Bilirubin AST ALT Alkaline Phosphatase Ammonia Total Protein Albumin Globulin Albumin/Globulin Ratio Urine Color Urine Appearance Urine pH Ur Specific [place] Urine Protein Urine Glucose (UA) Urine Ketones Urine Blood Urine Nitrite Urine Bilirubin Urine Urobilinogen Ur Leukocyte Esterase Urine RBC Urine WBC Ur Epithelial Cells Urine Bacteria Urine Osmolality Ur Random Creatinine Ur Random Sodium 07/29/19 07/29/19 07/29/19 06:20 06:20 07:34 PT INR Sodium 133 L Potassium 3.9 Chloride 100 Carbon Dioxide 25 Anion Gap 8.0 BUN 54 H Creatinine 2.05 H D Est Cr Clr Drug Dosing 20.2 Est GFR ( Amer) 27.2 Est GFR (Non-Af Amer) 23.4 BUN/Creatinine Ratio 26.4 H Glucose 111 H POC Glucose 100 H Calcium 8.7 Total Bilirubin AST ALT Alkaline Phosphatase Ammonia 14.2 Total Protein Albumin Globulin Albumin/Globulin Ratio Urine Color Urine Appearance Urine pH Ur Specific [place] Urine Protein Urine Glucose (UA) Urine Ketones Urine Blood Urine Nitrite Urine Bilirubin Urine Urobilinogen Ur Leukocyte Esterase Urine RBC Urine WBC Ur Epithelial Cells Urine Bacteria Urine Osmolality Ur Random Creatinine Ur Random Sodium 07/29/19 07/29/19 07/29/19 09:30 09:30 09:30 PT INR Sodium Potassium Chloride Carbon Dioxide Anion Gap BUN Creatinine Est Cr Clr Drug Dosing Est GFR ( Amer) Est GFR (Non-Af Amer) BUN/Creatinine Ratio Glucose POC Glucose Calcium Total Bilirubin AST ALT Alkaline Phosphatase Ammonia Total Protein Albumin Globulin Albumin/Globulin Ratio Urine Color Yellow Urine Appearance Turbid A Urine pH 5.0 Ur Specific [place] 1.010 Urine Protein 2+ H Urine Glucose (UA) Negative Urine Ketones Negative Urine Blood 3+ H Urine Nitrite Negative Urine Bilirubin Negative Urine Urobilinogen Negative Ur Leukocyte Esterase 3+ H Urine RBC 5-10 H Urine WBC 10-30 H Ur Epithelial Cells 5-10 H Urine Bacteria 1+ H Urine Osmolality 59 L Ur Random Creatinine 21.5 Ur Random Sodium 10 07/29/19 07/29/19 07/29/19 11:28 16:39 16:44 PT INR Sodium Pending Potassium Pending Chloride Pending Carbon Dioxide Pending Anion Gap Pending BUN Pending Creatinine Pending Est Cr Clr Drug Dosing Pending Est GFR ( Amer) Pending Est GFR (Non-Af Amer) Pending BUN/Creatinine Ratio Pending Glucose Pending POC Glucose 206 H 116 H Calcium Pending Total Bilirubin Pending AST Pending ALT Pending Alkaline Phosphatase Pending Ammonia Total Protein Pending Albumin Pending Globulin Pending Albumin/Globulin Ratio Pending Urine Color Urine Appearance Urine pH Ur Specific [place] Urine Protein Urine Glucose (UA) Urine Ketones Urine Blood Urine Nitrite Urine Bilirubin Urine Urobilinogen Ur Leukocyte Esterase Urine RBC Urine WBC Ur Epithelial Cells Urine Bacteria Urine Osmolality Ur Random Creatinine Ur Random Sodium PG Care Time/CCT Total # of Minutes Spent Total Time Spent with Patient: Total time spent is greater than 50% in coordination of care (as documented) at patient's floor/unit and/or counseling patient: Coding Level of Care Code 88797 Inpt Consult Level 5 Diagnoses Acute renal insufficiency N28.9
[2019-07-29] MEDS ORDERED: LIDOCAINE 5% 1 PATCH TD SCH (17:00)
[2019-07-29] MEDS: AMPHOTERICIN B 50 MG in WATER, STERILE 1,000 ML IR SCH (17:17)
[2019-07-29 17:18] LABS: BUN Creatinine Ratio 23.8 (10-20); Bilirubin,Total 6.1 mg/dl (0.2-1); Calcium 9.1 mg/dl (8.5-10.1); Creatinine Clr Calc Pharmacy 16.8 ml/min; Est GFR (African American) 21.8; Est GFR (Non-African American) 18.8; Potassium 4.1 mmol/L (3.5-5.1)
--- NOTE | 2019-07-29 23:28 | Anesthesia Procedure Note ---
Anesthesia Procedure Note Intubation Note Vital Signs: Asystole, ACLS in progress Date of procedure: 07/29/19 Indication for intubation: Cardiac arrest Consent: Risk / Benefits Reviewed With: Emergency Monitors attached: Blood Pressure, CO2, EKG and Pulse Oximetry Time out completed: No Premedication: None Paralytic medication: None Intubation technique: Cricoid pressure and Airway suctioned Equipment: MAC View: Grade 2 Endotracheal tube: Oral and 7.5 Attempts: 1 and Atraumatic Tube placement confirmation: auscultation and Positive CO2 detection Procedure Summary: Arrived to code blue, intitial rhythm asystole. ACLS in progress, code run by ICU and internal medicine staff. I performed intubation. Laryngoscopy mildly challenging due to poor patient positioning on bed. Copious bilious fluid suctioned from oropharynx. Grade 2 view with strong BURP pressure by assistant analyst. ETT placed 22cm at the lip. ETCO2 confirmed. ACLS continued by code team. Sinus rhythm with +peripheral pulses was present after intubation. Post-procedure: No complication and Post placement CXR ordered
--- NOTE | 2019-07-29 23:38 | Critical Care Progress Note ---
Date of Service July 29, 2019 Assessment & Plan (1) Cardiac arrest: Patient with history of Leos cirrhosis with TIPS procedure performed 2012 with revision 2016 was being treated in this facility for a UTI and hepatic encephalopathy. She was initially admitted to the ICU and transferred out the following day to the floor where she was undergoing treatment. Last night she experienced cardiac arrest. Unsure of the etiology at this time. No ST elevation on EKG, troponin mildly elevated at 0.07 but relatively unremarkable considering cardiac arrest with CPR. She underwent approximately 15 minutes of CPR for asystolic rhythm and received epi x2 and bicarb x2, before achieving ROSC with sinus tachycardic rhythm. She was intubated during that time and transferred to the ICU. Current vent settings 22/400/5/70 percent. ABG showed metabolic acidosis and she was placed on bicarb drip. Initial lactic acidosis of [address] abdomen was performed. General surgery was patient evaluated patient at the bedside and reviewed the CT exam, patient not appropriate for her surgery and no culprit identified. Likely that lactic acidosis was a result of the cardiac arrest. Patient's neurological exam is poor, see above, and there is concern for significant anoxic injury following cardiac arrest. Given patient's current status and comorbidities transfer to a tertiary center was offered, therapeutic hypothermia without transfer was also offered, and palliative care was also offered to the family. Family has elected to transfer patient to tertiary center with liver service, continuous EEG, and potential need for CRRT as it is likely patient will sustain significant injury to the kidneys as she was already trending towards acute renal failure. Would suspect the patient would likely sustain shock liver from the arrest. Patient is currently stabilized in the ICU, currently not requiring vasopressors and sinus tachycardia on the monitor. Arterial line inserted for hemodynamic monitoring and frequent ABGs following cardiac arrest and transfer. She has currently been accepted for transfer to [facility] to the MICU by . Will continue current therapy in the ICU until transfer for now. CRITICAL CARE TIME - I have personally spent 120 minutes of critical care time in the direct management of this patient. This is a life/limb threatening event. This includes time spent evaluating patient, direct bedside care, chart review, placing orders, interpretation of diagnostic studies, discussion with consultants, patient, and family members, as well as other required patient management activities. This time is exclusive of all separately billable procedures, and teaching time and separate from and in addition to any other critical care service time. (2) Lactic acidosis: (3) CARIE (acute kidney injury): (4) Acute hepatic encephalopathy: (5) Thrombocytopenia: (6) Liver cirrhosis: Admission and Anticipated Discharge Date Admission Date: July 25, 2019 Subjective I responded to a CODE BLUE on the floor. I did previously evaluated the patient's on her admission for hepatic encephalopathy. She is being treated for a UTI on the floor, hepatic encephalopathy had improved. Overnight the patient experienced cardiac arrest where she became bradycardic which converted to asystole rhythm. CODE BLUE was initiated and patient began to receive CPR. She did not experience a shockable rhythm, she did convert to sinus tachycardia after CPR with 2 rounds of epi and 2 of bicarb. ROSC was achieved in approximately 15 minutes. Patient was intubated during that time and transferred to the ICU for further management. Initial lactate was [address] abdomen was obtained. As the patient did exhibit abdominal distention, general surgery was paged and evaluated the patient at the bedside and reviewed the CT imaging. In conclusion, no culprit was identified and currently no indication for surgical intervention. I spoke with the family in regards to goals of care and at this time they would like to proceed with aggressive therapy. The patient's daughter presented to the hospital and was able to see the patient at the bedside. I discussed in length the patient's likely poor prognosis with the daughter and the , but at this time they would like to proceed with aggressive therapy. I discussed the case with my attending , who felt the patient was appropriate for transfer to a tertiary center for continuous EEG, liver transplant service. Family opted to transfer to [facility] as it is closest to the daughters home by approximately 15 minutes, she is a CHEMISTRY MANAGER in that area. I spoke on the phone with Dr. Blunt who has agreed to accept the patient to the MICU. We are currently waiting for a bed and waiting for callback for transport. In condition to transport, patient must be tested for COVID-19, which she is currently undergoing rapid testing. Review of Systems Review of Systems: Unobtainable due to cognitive status and Unobtainable due to endotracheal tube Physical Exam Constitutional: + frail appearing and + mechanically ventilated Eyes: Pupils dilated but reactive ENMT: external ear and nose normal, oropharynx normal Neck: trachea midline, no thyromegaly Respiratory: Symmetrical chest wall movement, bilateral diminished breath sounds, no crackles Cardiovascular: Sinus tachycardia, normotensive, no JVD, no edema Gastrointestinal (Abdomen): Abdomen distended, semi-firm, ascites, bowel sounds active Neurologic: Cough gag corneals intact, patient with dilated pupils which are sluggish but reactive to light. Patient non-localizes to noxious stimuli and moves all 4 extremities. Currently she does not follow commands. Psychiatric: Unable to assess Genitourinary: Fields, strict I's and O's Results & Data Results & Data ([facility]) Vital Signs (Past 12 Hours) Vital Signs Temp Pulse Pulse Resp BP BP Pulse Ox 07/29/19 20:00 36.5 C 86 18 156/87 H 92 07/29/19 15:59 36.8 C 87 18 150/82 H 91 07/29/19 15:16 93 H Coding Level of Care Code Critical Care ea addt'l 30 min Diagnoses Cardiac arrest I46.9 Lactic acidosis E87.2 CARIE (acute kidney injury) N17.9 Acute hepatic encephalopathy K72.00 Thrombocytopenia D69.6 Liver cirrhosis K74.60 Hepatic cirrhosis type: unspecified hepatic cirrhosis Ascites presence: unspecified (1) Liver cirrhosis Hepatic cirrhosis type: unspecified hepatic cirrhosis Ascites presence: unspecified Qualified Code(s): K74.60 - Unspecified cirrhosis of liver
[2019-07-29] MEDS ORDERED: STAT IV STA (23:39)
[2019-07-29] MEDS ORDERED: SODIUM BICARBONATE 8.4% 150 MEQ in DEXTROSE 5% 1,000 ML IV SCH (23:45)
[2019-07-29 23:47] LABS: iSTAT Allen Test Pass; iSTAT Arterial Blood Gas HCO3 19 meg/L (19-24); iSTAT Arterial Blood Gas pCO2 53 mmHg (35-46); iSTAT Arterial Blood Gas pH 7.16 (7.35-7.45); iSTAT Arterial Blood Gas pO2 155 mmHg (80-95); iSTAT Carbon Dioxide 20 mmol/L (24-31); iSTAT FiO2 100 %; iSTAT Site L Radial
[2019-07-29 23:50] LABS: INR 2.6 (0.9-1.1); Prothrombin Time 26.1 Seconds (9.0-12.0)
[2019-07-29] MEDS ORDERED: fentaNYL citrate 100 MCG/2 ML VIAL ONE (23:53)
[2019-07-29 23:55] LABS: Hematocrit (blood only) 31.9 % (37-47); Hemoglobin 10.3 g/dL (12.0-16.0); Mean Corpuscular Hemoglobin 34.1 pg (25-34); Mean Corpuscular Hgb Conc 32.3 g/dL (32-36); Mean Corpuscular Volume 105.6 fL (80-100); Mean Platelet Volume 10.1 fL (7.4-10.4); Nucleated RBC # (auto) 0.36 K/uL (0-0); Nucleated RBC % (auto) 1.6 %; Platelet Count 37 K/uL (130-400); RDW Coefficient of Variation 21.7 % (11.5-14.5); RDW Standard Deviation 82.6 fL (36.4-46.3); Red Blood Count 3.02 M/uL (4.2-5.4); White Blood Count 22.78 K/uL (4.8-10.8)
[2019-07-30 00:08] LABS: Albumin Globulin Ratio 0.8 (0.9-2); Albumin Level 2.4 gm/dl (3.4-5.0); BUN Creatinine Ratio 21.8 (10-20); Bilirubin Direct 3.3 mg/dl (0-0.2); Bilirubin,Total 5.3 mg/dl (0.2-1); Calcium 11.6 mg/dl (8.5-10.1); Creatinine Clr Calc Pharmacy 15.4 ml/min; Est GFR (African American) 19.5; Est GFR (Non-African American) 16.8; Globulin 2.9 gm/dl (2.5-4.0); Magnesium 3.1 mg/dl (1.8-2.4); Phosphorus 6.9 mg/dl (2.5-4.9); Potassium 4.2 mmol/L (3.5-5.1); Total Protein 5.3 gm/dl (6.4-8.2); Troponin I 0.068 ng/ml (0-0.045)
[2019-07-30 00:12] LABS: Anisocytosis Present; Basophils # (auto) 0.09 K/uL (0-0.2); Basophils % (auto) 0.4 %; Echinocytes 2+; Eosinophils # (auto) 0.02 K/uL (0-0.5); Eosinophils % (auto) 0.1 %; Immature Granulocytes # (auto) 1.35 K/uL (0.00-0.02); Immature Granulocytes % (auto) 5.9 %; Lymphocytes # (auto) 3.29 K/uL (1.2-3.4); Lymphocytes % (auto) 14.4 %; Monocytes # (auto) 1.62 K/uL (0.11-0.59); Monocytes % (auto) 7.1 %; Neutrophils # (auto) 16.41 K/uL (1.4-6.5); Neutrophils % (auto) 72.1 %; Pappenheimer Bodies 1+; Polychromasia 1+
--- NOTE | 2019-07-30 01:22 | Procedure Note ---
Procedure Note Date of Service July 30, 2019 Note ARTERIAL LINE PROCEDURE NOTE: Procedure: Arterial Line Placement Attending: Dr. Staley Provider: BARRY Bianchi Indication: Continuous hemodynamic monitoring following cardiac arrest, frequent ABGs, frequent lab draws Anesthesia: None Line placed emergently following cardiac arrest A time-out was completed verifying correct patient, procedure, site, positioning, and implant(s) or special equipment if applicable. Allens test was performed to ensure adequate perfusion. Patients right wrist was prepped and draped in the usual sterile fashion. Ultrasound guidance was used to aid needle placement. A 20g Arrow arterial line was introduced into the right radial artery. Catheter was threaded, and the needle was removed with appropriate blood return. Good waveform was observed. The patient tolerated the procedure well. Confirmation of placement with ultrasound. Blood Loss: Minimal Complications: None Procedural Ultrasound Guidance: Procedure Date: 07/30/2019 Indication: Arterial line insertion Attending: Dr. Staley Provider: BARRY Bianchi Artery Identified: YES Line confirmed in Artery with ultrasound: Yes Complications: NONE Patient tolerated procedure: WELL Coding
--- NOTE | 2019-07-30 01:38 | Surgery Consultation ---
Date of Consultation July 30, 2019 Assessment & Plan (1) Lactic acidosis: -this is likely due to recent cardiac event -no clear indication for surgical intervention; pt. would be considered high risk due to underlying liver disease, coagulopathy, and thrombocytopenia -trend lactate levels and continue supportive care for the present time Dr. Go-asked to see the patient with concern for ischemic bowel-patient with recent cardiac arrest following CPR and intubation She was admitted with hepatic encephalopathy and a history of cirrhosis ,history of TIPS procedure. She has significant ascites. Her platelet count is 37, pro time is 26.1 and INR of 2.6 total bilirubin of 5.3. White blood cell count is 22 .7 she has an elevated lactate. She is currently intubated with evidence of diffuse bruising -appears chronic, mild bloody fluid in her mouth. Her abdomen is distended and she has decreased bowel sounds ,she has dullness to percussion -does appear she has Some neurologic abnormality with abnormal eye movements and also no response to pain. CAT scan compared to 2 days prior Shows increased ascites ,very slightly increased distention by measurement. There is no evidence of free air, pneumatosis or Significant abnormality in the bowel wall, no evidence of portal venous gas. It does not appear the patient has significant intra-abdominal bleeding. With her underlying hepatic dysfunction, ascites and coagulopathy she is an extreme surgical risk in addition to her recent cardiac arrest. I do not believe surgical intervention at the present time will improve her situation. We will continue to follow. Have discussed this with her daughter- Susan. History of Present Illness Attending Physician: Roosevelt Ramos History of Present Illness Pt. seen in ICU room 109--she recently suffered cardiac arrest and is currently intubated. Information obtained from discussion with ICU staff as well as review of chart. Pt. admitted to [facility] on 07/25/19 due to hepatic encephalopathy (concern lactulose was not being given frequently enough). Since admission she has been given lactulose as well as xifaxin with decrease noted in ammonia level. She has since been treated for a fungal UTI. She was noted to have worsening renal function with concern for hepatorenal syndrome and was therefore started on octreotide. Earlier this evening she suffered cardiac arrest due to uncertain cause. ICU staff notes she was coded for abut 15 minutes. Following code she was noted to have a WBC of 22.7, H/H of 10.3/31.9, platelet count of 37, lactate level of 11.8. ABG revealed a ph of 7.[address] scan of abdomen showed large amount of ascites and some small and large bowel edema without pneumatosis. Allergies Allergy/AdvReac Type Severity Reaction Status Date / Time midazolam [From Versed] Allergy Unknown Verified 07/24/19 23:05 montelukast [From Singulair] Allergy Unknown Verified 07/24/19 23:05 nitrofurantoin Allergy Unknown Verified 07/24/19 23:05 [From Macrodantin] Penicillins Allergy Unknown Verified 07/24/19 23:05 sulfamethoxazole Allergy Unknown Verified 07/24/19 23:05 [From Bactrim] terconazole [From Terazol 3] Allergy Unknown Verified 07/24/19 23:05 trimethoprim [From Bactrim] Allergy Unknown Verified 07/24/19 23:05 Home Medications Home Medications Medication Instructions Recorded Confirmed Type blood sugar diagnostic #450 ea 08/05/18 07/24/19 Rx escitalopram oxalate 10 mg tablet 15 mg PO DAILY #135 tab 08/05/18 07/24/19 Rx fluticasone propionate 50 2 sprays INTRANASAL DAILY #18.2 gm 08/05/18 07/24/19 Rx mcg/actuation nasal spray,suspension rifaximin 550 mg tablet 550 mg PO BID #180 tab 08/27/18 07/24/19 Rx levothyroxine 50 mcg tablet 50 mcg PO DAILY #90 tab 09/09/18 07/24/19 Rx pantoprazole 40 mg tablet,delayed 40 mg PO BID #180 tab 10/27/18 07/24/19 Rx release cholecalciferol (vitamin D3) 50 2,000 units PO DAILY 10/29/18 07/24/19 History mcg (2,000 unit) capsule lactulose 10 gram/15 mL oral 40 ml PO QID btl 12/30/18 07/24/19 History solution pen needle, diabetic 31 gauge x #100 ea 01/17/19 07/24/19 Rx 3/16" sub-q insulin device, 40 unit #30 ea 02/10/19 07/24/19 Rx Oxygen Home #1 ea 07/07/19 07/24/19 Rx ferrous sulfate 325 mg (65 mg 325 mg PO BID #60 tab 07/07/19 07/24/19 Rx iron) tablet acetaminophen [Tylenol] 650 mg PO Q4 PRN 07/24/19 07/24/19 History docusate sodium 100 mg PO BID PRN 07/24/19 07/24/19 History furosemide [Lasix] 40 mg PO BID 07/24/19 07/24/19 History gabapentin 300 mg PO HS 07/24/19 07/24/19 History hydrocortisone 5 mg PO .QDINNER 07/24/19 07/24/19 History hydrocortisone [Cortef] 10 mg PO .QBREAKFAST 07/24/19 07/24/19 History insulin glargine [Lantus U-100 56 unit SUBCUT DAILY 07/24/19 07/24/19 History Insulin] insulin lispro protamin-lispro 18 unit SUBCUT TIDM 07/24/19 07/24/19 History [Humalog Mix 75-25(U-100)Insuln] insulin regular human [Humulin R 0 unit SUBCUT TIDM 07/24/19 07/24/19 History Regular U-100 Insuln] melatonin 6 mg PO HS 07/24/19 07/24/19 History nystatin 1 applic TOPICAL BID 07/24/19 07/24/19 History polyethylene glycol 3350 [Miralax] 17 g PO DAILY PRN 07/24/19 07/24/19 History sennosides-docusate sodium 1 tab PO DAILY PRN 07/24/19 07/24/19 History [Senna-S] spironolactone 50 mg PO BID 07/24/19 07/24/19 History zinc sulfate 220 mg PO DAILY 07/24/19 07/24/19 History Patient History Medical History Adjustment disorder with mixed anxiety and depressed mood (Acute) Adrenal insufficiency, primary, autoimmune (Acute) Chronic low back pain Diabetic peripheral neuropathy associated with type 1 diabetes mellitus (Acute) Dyslipidemia (Acute) Esophageal varices (Acute) Fracture, sacrum/coccyx (Inactive) Gait disturbance, post-stroke (Acute) Hepatic encephalopathy (Acute) History of subarachnoid hemorrhage (Inactive) Hypothyroidism (Acute) Iron deficiency anemia (Acute) Iron deficiency anemia Mineral deficiency (Inactive) FISCHER (nonalcoholic steatohepatitis) (Acute) Obstructive sleep apnea (Acute) Osteoporotic compression fracture of spine (Acute) Recurrent UTI (Acute) Recurrent UTI Sepsis Type 2 diabetes mellitus Unspecified cirrhosis of liver (Acute) Vitamin D deficiency (Acute) Surgical History H/O: hysterectomy History of bladder surgery History of rectal surgery History of tubal ligation Hx of tonsillectomy S/P TIPS (transjugular intrahepatic portosystemic shunt) Family History Father Colon cancer Mother Diabetes Renal failure Social History Preferred Language: Persian Communication Ability: Impaired Visual Impairment: No Limitations Hearing Ability: Normal Make Up Editor Required: No Beliefs That Will Affect Care: None marital status: Current Living Situation: Rehab current occupational status: retired Feels Safe at Home: Declines to Answer Smoking Status: Unknown if ever smoked Hx Alcohol Use: No Hx Substance Use: No Childhood Exposure to Second-Hand Smoke: No Dental Care, Regularly: No Physical Activity Frequency: Does not Exercise Seatbelt Use: always Sunscreen Use: No Review of Systems Review of Systems: unable to obtain due to clinical status Physical Exam Constitutional: intubated in ICU Eyes: pupils are reactive to light abnormal eye motion noted to be present Neck: trachea midline Respiratory: BS are present bilaterally Cardiovascular: Rate/Rhythm: regular rate and regular rhythm Vessels: dorsalis pedis pulses present hands are cool bilaterally Gastrointestinal (Abdomen): abdomen distended with hypoactive BS; tympany noted to percussion; palpation did not elicit pain response Neurologic: purposeful movement not noted Results & Data Vital Signs (Past 12 Hours) Vital Signs Temp Pulse Pulse Resp BP BP Pulse Ox 07/29/19 23:35 142 H 30 H 93 07/29/19 20:00 36.5 C 86 18 156/87 H 92 07/29/19 15:59 36.8 C 87 18 150/82 H 91 07/29/19 15:16 93 H PG Care Time/CCT Total # of Minutes Spent Total Time Spent with Patient: Total time spent is greater than 50% in coordination of care (as documented) at patient's floor/unit and/or counseling patient: Coding Level of Care Code 57825 Inpt Consult Level 5 Diagnoses Lactic acidosis E87.2
[2019-07-30] MEDS ORDERED: STAT IV Infusion **Titration per Protocol STA (02:20)
[2019-07-30] MEDS ORDERED: PROPOFOL BOLUS FROM BAG IV PRN (02:20)
[2019-07-30] MEDS ORDERED: PROPOFOL IV EMULSION 10 MG/ML 100 ML VIAL IV ONE (02:21)
[2019-07-30] MEDS ORDERED: propofoL 1,000 MG/100 ML VIAL IV SCH (02:30)
[2019-07-30] MEDS: NORMOSOL-R 1,000 ML IV SCH (03:33)
[2019-07-30] MEDS: OCTREOTIDE ACETATE 100 MCG/ML VIAL SQ SCH (05:31)
[2019-07-30 05:51] LABS: iSTAT Arterial Blood Gas HCO3 21 meg/L (19-24); iSTAT Arterial Blood Gas pCO2 31 mmHg (35-46); iSTAT Arterial Blood Gas pH 7.45 (7.35-7.45); iSTAT Arterial Blood Gas pO2 65 mmHg (80-95); iSTAT Carbon Dioxide 22 mmol/L (24-31); iSTAT FiO2 75 %; iSTAT Site Art Line
[2019-07-30] MEDS ORDERED: SODIUM BICARB 8.4% INJ 50 MEQ/50 ML SYR IV ONE (06:26)
[2019-07-30] MEDS ORDERED: CALCIUM CHLORIDE 10% 10 ML SYR IV ONE (06:26)
--- NOTE | 2019-07-30 07:21 | XRay Report ---
XR chest 1V portable CLINICAL HISTORY: cardiac arrest COMPARISON STUDY: Chest radiograph July 24, 2019. FINDINGS: A TIPS is incidentally noted. Tip of endotracheal tube is 1.7 cm above the elissa. Lung vol umes are diminished. There is a hiatal hernia. Small bilateral pleural effusions with bibasilar opaci ties are noted. There is pleural vascular congestion. There is no pneumothorax. IMPRESSION: 1. Tip of endotracheal tube 1.7 cm above the elissa. 2. Small bilateral pleural effusions with bibasilar opacities. 3. Pulmonary vascular congestion. ACT 112: Negative or not required by law. Electronically signed by: Felix Block M.D. 07/30/2019 7:19 AM
--- NOTE | 2019-07-30 08:12 | CT Scan Report ---
CT OF THE ABDOMEN AND PELVIS WITHOUT CONTRAST CLINICAL HISTORY: distended abdomen COMPARISON STUDY: CT of the abdomen and pelvis July 29, 2019. TECHNIQUE: Axial images of the abdomen and pelvis were obtained without IV contrast. Images were revi ewed in the axial, sagittal, and coronal planes. Automated exposure control was utilized for the puja dy. A dose lowering technique was utilized adhering to the principles of ALARA. FINDINGS: Imaged portions of the lower chest demonstrate small to moderate right and small left pleur al effusions which have increased in size since prior exam. Associated airspace opacities have increa sed. There is a large hiatal hernia. No pneumatosis, free air or portal venous gas is present. Evalua tion of the abdomen and pelvis is suboptimal on this unenhanced exam. A TIPS is again noted. The live r is cirrhotic. A few water attenuation hepatic lesions are suboptimally assessed on this unenhanced exam but favor cysts. There is hyperdense material within the gallbladder. Moderate ascites has incre ased since prior examination. Anasarca is noted. Bilateral renal calculi are noted these measure up t o 7 mm. No ureteral calculi identified. There is no hydronephrosis. The size of the spleen is normal. The pancreas is unremarkable on this unenhanced examination. There is a diverticulum of the second p ortion of the duodenum. Wall thickening of multiple small bowel loops is again noted as well as wall thickening of the rectum and portions of the colon. This was shown on prior CT. Fields balloon is pres ent within the bladder. No suspicious osseous lesions are noted. IMPRESSION: 1. Cirrhosis with moderate ascites, increased since prior CT of July 29, 2019. 2. Exam compromised given the lack of IV contrast. No bowel obstruction. Persistent small and large b owel wall thickening, as shown on prior CT. This may be due to the patient's diffuse edematous state. An enterocolitis/proctitis could appear similar. 3. Increase in small to moderate right and small left pleural effusions with increasing bibasilar opa cities which could reflect atelectasis or consolidation. 4. Large hiatal hernia. 5. Bilateral nephrolithiasis. ACT 112: Negative or not required by law. Electronically signed by: Felix Block M.D. 07/30/2019 8:10 AM
--- NOTE | 2019-07-30 09:04 | Electrocardiogram Report ---
Test Reason : Blood Pressure : / mmHG Vent. Rate : 142 BPM Atrial Rate : 142 BPM P-R Int : 120 ms QRS Dur : 132 ms QT Int : 346 ms P-R-T Axes : 079 -11 002 degrees QTc Int : 532 ms Sinus tachycardia Right bundle branch block Abnormal ECG When compared with ECG of 24-JUL-2019 22:24, Right bundle branch block is now Present Confirmed by Kurtis Hutson ([id number]) on 07/30/2019 9:04:15 AM Referred By: [facility] Confirmed By:Kurtis Hutson
--- NOTE | 2019-07-31 06:55 | Discharge Summary ---
Date of Service date of admission - July 25, 2019 date of discharge - July 31, 2019 Admission HPI Per Admitting Provider Naa Duarte is a 73yo C female with history of poorly controlled DM-II, FISCHER with cirrhosis, esophageal varices and GAVE, s/p TIPS procedure performed in 2013 with revision in 2016, Addrenal insufficiency, Hypothyroidism presenting with hepatic encephalopathy. Patient obtunded, unable to provide details of history or participate in physical exam. History obtained from daughter at bedside, chart review and discussion with ER staff. Patient was living independently with minimal assistance from a caregiver until recently when she had a mechanical fall x 2. She was placed in rehab at [facility] on July 13. She had been doing fairly well until yesterday when she started becoming confused and less conversive. Her son called her as well as other family members and reported that patient was lethargic/confused and not acting herself. The patient's daughter called [facility] nursing and requested transfer to the hospital. Patient had an episode of non- bloody/nonbilious emesis in the ER. No additional complaints. Specifically, no report of fever/chills/SOB/cough/abdominal pain/diarrhea or constipation. Patient had not eaten much yesterday during the day. She takes lactulose at home and titrates to 3-4 soft bowel movements daily as well as Rifaximin. Daughter states that staff reported normal BMs but no BM yesterday. ER Course: Dextrose 25mL, Hydrocortisone 100mg IV, Lactulose enema Principal Diagnosis 1. s/p cardiac arrest on 07/29/2019 2. hepatic encephalopathy 3. FISCHER cirrhosis with prior h/o TIPS x 2 4. abiodun glabrata UTI 5. acute renal failure Discharge Exam Constitutional + cachectic (Muscle washing of facial muscles, arms, etc), + altered mental status and + frail appearing; + not well developed, + not well nourished and no acute distress Eyes no nystagmus ENMT Mouth: + oropharynx abnormality (Thrush plaques improving ) Respiratory no respiratory distress Auscultation: + diminished lung sounds; no crackles and no wheezes Cardiovascular Rate/Rhythm: regular rate and regular rhythm Heart Sounds: normal S1 and normal S2; no murmur Vessels: posterior tibial pulses present and dorsalis pedis pulses present; no JVD Extremities: no edema Gastrointestinal (Abdomen) Inspection/Auscultation: + abdomen distended, normal bowel sounds and + abdominal edema Percussion/Palpation: abdomen nontender, no guarding, abdomen not rigid and no hepatosplenomegaly Skin no rashes, warm and dry Neurologic moves all extremities Motor/Sensory: + asterixis (Minimal ) Psychiatric Orientation: alert and oriented to person; + not oriented to place and + not oriented to time Discharge Data Allergies Allergy/AdvReac Type Severity Reaction Status Date / Time midazolam [From Versed] Allergy Unknown Verified 07/24/19 23:05 montelukast [From Singulair] Allergy Unknown Verified 07/24/19 23:05 nitrofurantoin Allergy Unknown Verified 07/24/19 23:05 [From Macrodantin] Penicillins Allergy Unknown Verified 07/24/19 23:05 sulfamethoxazole Allergy Unknown Verified 07/24/19 23:05 [From Bactrim] terconazole [From Terazol 3] Allergy Unknown Verified 07/24/19 23:05 trimethoprim [From Bactrim] Allergy Unknown Verified 07/24/19 23:05 Consultations Consult Gastroenterology - [facility] Consult Information Assurance Specialist Consult Nephrology - [facility] PT, OT Pharmacy Glycemic Team General Surgery Procedures Performed 1. rapid COVID-19 PCR x 2 --- both NEGATIVE 2. amphotericin continuous bladder irrigation 3. arterial line placement Ordered Studies 07/24/19 CT head/brain wo con - no acute process 07/25/19 01:59 US duplex portal hepatic veins - patent TIPS 07/29/19 10:00 CT abd pelvis wo con Urgent IMPRESSION: 1. Large hiatus hernia containing the proximal stomach. 2. Small bilateral pleural effusions. 3. Sclerotic liver with a small to moderate amount of ascites. 4. Moderate body wall edema. 5. Bilateral nephrolithiasis. No definite ureteral stones. No hydronephrosis. 6. Bowel wall thickening/edema involving the majority of the colon, rectum, and jejunal loops. This is most pronounced within the rectum which could be related to underlying hemorrhoids. This is difficult to assess on this noncontrast study. In addition, this may be due to the patient's diffuse edematous state. An enterocolitis/proctitis could also have a similar appearance in the appropriate clinical setting. 7. Prior TIPS procedure. 07/30/19 00:08 CT abd pelvis wo con Urgent IMPRESSION: 1. Cirrhosis with moderate ascites, increased since prior CT of July 29, 2019. 2. Exam compromised given the lack of IV contrast. No bowel obstruction. Persistent small and large bowel wall thickening, as shown on prior CT. This may be due to the patient's diffuse edematous state. An enterocolitis/proctitis could appear similar. 3. Increase in small to moderate right and small left pleural effusions with increasing bibasilar opacities which could reflect atelectasis or consolidation. 4. Large hiatal hernia. 5. Bilateral nephrolithiasis. Hospital Course (1) Cardiac arrest: Late in the evening on 07/29/2019 the patient suffered an asystolic cardiac arrest. The cardiac arrest was preceded by acute sinus bradycardia. She received CPR via standard ACLS protocol and achieved spontaneous synagogue of circulation after 15 minutes of resuscitative efforts including epi x 2 and bicarbonate x 2. She was in asystole the entire code; she never had a shockable rhythm. By report there were no prodromal symptoms (chest pain, dizziness, dyspnea) prior to the code blue event. The patient was intubated during her code. Post-resuscitation she underwent a repeat CT abd/pelvis. There was worsening ascites and pleural effusions but the scan was otherwise similar to the CT done earlier that day. She had edema of the small/large bowel again on the repeat CT but this was felt 2nd to her edematous state from her advanced cirrhosis. Surgery was consulted and did not feel there was a surgical abdomen present. Exact etiology of the cardiac arrest was uncertain at time of transfer to tertiary care. She did have a lactic acidosis upon readmittance to the ICU post-code but it was felt 2nd to the cardiac arrest itself. Troponin was minimally elevated. EKG showed a new RBBB but no ST changes. Given the patient's advanced cirrhosis, worsening renal function, worsening coagulopathy, and concern of hepatorenal syndrome - all in the setting of her cardiac arrest - the patient was transferred to [facility] ICU for ongoing care. (2) Lactic acidosis: Present at time of admission - resolved with supportive care and treatment of her hepatic encephalopathy. Then recurred late in her stay in the context of her cardiac arrest. (3) Acute hepatic encephalopathy: Markedly elevated ammonia level at time of admission with level of about 190. Normalized with IV fluids, rifaximin, and lactulose enemas/oral syrup. Levels on 07/25 and 07/28 were both normal. She continued with TID lactulose and rifaximin for all of her stay with good stooling. Despite aggressive treatment of her hepatic encephalopathy she remained confused in the latter half of her stay. CT head was negative at time of admission. Ongoing confusion was likely multifactorial including metabolic encephalopathy from fungal UTI, various metabolic disturbances (acute renal failure, etc), and probable hospital psychosis. Gabapentin usage could have contributed to confusion in the setting of acute renal failure as well. Retrospectively fungal UTI may have precipitated her presenting hepatic encephalopathy. Couldn't rule out decompensated hypothyroidism contributing to hepatic encephalopathy but less likely. Consideration was being given to a diagnostic paracentesis to r/o SBP in light of acute renal failure and ?hepatorenal syndrome on the day that she suffered the cardiac arrest. However she never had abdominal pain or tenderness suggestive of such. Lastly, COVID-19 testing, blood cx's, and cxr were all negative/normal. (4) Acute renal insufficiency: Rise from 1.4 to 2 and ultimately 2.7 s/p cardiac arrest. Of note - the acute renal failure was discovered on the AM of 07/29/19 (well before cardiac arrest). Baseline Cr 1.1. FeNa <1. Urine Na 10. Urine micro bland - no casts. Volume depletion vs hepatorenal syndrome type 1 in differential for acute renal failure. No evidence of obstruction on CT abd/pelvis. Formal nephrology consultation was completed by [facility] on 07/29/19. Concerns for intravascular volume depletion vs early hepatorenal syndrome. Octreotide SC was initiated along with IV fluids on 07/29/19 with plans to switch to IV albumin if renal function did not improve with fluid challenge. At no point did the patient have hypotension during her hospitalization except in the setting of her post-cardiac arrest. (5) Candidal UTI (urinary tract infection): likely was present on admission (initial u/a at time of admission w/ budding yeast on microscopy). 2nd to candidal glabrata. she was NOT a candidate for -azole therapy (diflucan, voriconazole, etc) due to advanced cirrhosis. thus, CBI with amphotericin was initiated and she received 2 days of such prior to transfer to [facility]. plan was for a minimum of 5 days of treatment. Her persistent leukocytosis, persistent delirium, and loss of appetite may have been due to fungal UTI. (6) Liver cirrhosis: 2nd FISCHER with advanced disease s/p TIPS x 2 -- initial in [place]; redo at [facility] portal doppler with patent TIPS [id number] had mild-moderate ascites on CT abd/pelvis was maintained on rifaximin and lactulose her entire stay with adequate stooling and multiple normal ammonia levels prior to transfer to [facility] INR had worsened during this admission - due to liver disease? vitamin K deficiency? suspect both issues contributing INR fluctuated between 1.7 and 2.6 she received 3 doses of IV vitamin K 5mg prior to transfer INR was 2.6 upon transfer was seen by [facility] during the stay who provided jauregui recommendations diuretics were held due to intravascular volume depletion during the hospitalization on 07/29/19 imaging showed edematous small/large bowel along with small-moderate ascites -- bowel edema was thought 2nd to edematous state from her advanced cirrhosis; she never had abdominal pain/tenderness her entire stay. in light of advanced cirrhosis and s/p cardiac arrest along with ?developing hepatorenal syndrome she was transferred to [facility] on 07/30/19. (7) Addisons disease: long-standing diagnosis. s/p stress dose steroids this admission. initially on 100mg TID of IV hydrocortisone. weaned slowly during the stay down to 20mg BID of oral hydrocortisone. normal dosing -10mg am, 5mg pm. (8) Hypothyroidism: over last few months her TSH has been up/down constantly. on June 30 her TSH was nearly normal at 4.7. on 07/24/19 her TSH was 27. suspect that the rises are seen when she has had a period of illness and may not have been receiving or taking her meds consistently (due to altered mental status, etc). since the TSH was relatively normal just a few weeks ago her synthroid was resumed at 50mcg/day. recommend repeat TSH in 3-4 weeks post-discharge and if still high on recheck then increase dose then. cannot rule out decompensated thyroid state as a contributor to hepatic encephalopathy. (9) Diabetic peripheral neuropathy associated with type 1 diabetes mellitus: pharmacy glycemic team managed her diabetes while hospitalized. control was acceptable while here. (10) Thrombocytopenia: 2nd to cirrhosis of the liver platelet range - high 30s to 60s while hospitalized baseline platelet count is ~50s-70s (11) Coagulopathy: 2nd to combination of advanced liver disease and suspected vitamin K deficiency s/p 5mg vit K on 07/26, 07/27 and 07/28 INR range 1.7 to 2.6 while hospitalized (12) Anorexia: ongoing during the hospitalization. likely due to her liver disease itself, fungal UTI, acute renal failure, and other factors. she had temporal muscle wasting on exam suggesting chronic malnutrition. MVI and thiamine 200 BID were provided while here. (13) Severe protein-calorie malnutrition: MVI supplementation boost BID thiamine supplementation (14) Vitamin K deficiency: suspected see "coagulopathy" above (15) Hyponatremia: 2nd to acute renal failure in setting of her advanced cirrhosis (16) Back pain: muscular/paraspinal lumbar region heat therapy provided lidoderm patches prn (17) Candidiasis of mouth and esophagus: Treated with nystatin swish/swallow (18) DVT prophylaxis: SCDs were used her entire stay chemical DVT prophylaxis was contraindicated due to moderate-severe thrombocytopenia and coagulopathy Total Time Total Time Spent Total Time Spent (In Minutes): >60 --- time spent was by critical care team on morning of transfer Discharge Plan Discharge Items Patient Disposition: Transfer Acute Care Hospital Reason For Visit: [id number] Follow-up/Referrals: Stoney Nix MD [Primary Care Provider] - Stand-Alone Forms: [facility] Medications and DC Order Prescriptions: No Action rifaximin 550 mg tablet 550 mg PO BID Qty: 180 RF: 3 levothyroxine 50 mcg tablet 50 mcg PO DAILY Qty: 90 RF: 3 pantoprazole 40 mg tablet,delayed release (DR/EC) 40 mg PO BID Qty: 180 RF: 3 (DME) pen needle, diabetic [BD Ultra-Fine Mini Pen Needle] 31 gauge x 3/16" needle See Rx Instructions .ROUTE .MEDSUPPLY Qty: 100 RF: 5 (DME) V-GO 40 device See Dose Instructions .ROUTE .MEDSUPPLY Qty: 30 RF: 5 Hold Instructions: stopped escitalopram oxalate 10 mg tablet 15 mg PO DAILY Qty: 135 RF: 3 (DME) OneTouch Verio test strips strip See Dose Instructions .ROUTE .MEDSUPPLY Qty: 450 RF: 3 fluticasone propionate 50 mcg/actuation spray,suspension 2 sprays intranasal DAILY Qty: 18.2 RF: 3 cholecalciferol (vitamin D3) 2,000 unit capsule 2,000 units PO DAILY RF: 0 lactulose 10 gram/15 mL solution 40 ml PO QID RF: 0 (DME) Oxygen Home Liters Per Minute See Rx Instructions .ROUTE .MEDSUPPLY Qty: 1 RF: 0 ferrous sulfate 325 mg (65 mg iron) tablet 325 mg PO BID Qty: 60 RF: 0 hydrocortisone 5 mg Tablet 5 mg PO .QDINNER RF: 0 furosemide [Lasix] 40 mg Tablet 40 mg PO BID RF: 0 acetaminophen [Tylenol] 325 mg Tablet 650 mg PO Q4 PRN (Reason: Pain) RF: 0 Lantus U-100 Insulin 100 unit/mL Solution 56 unit SUBCUT DAILY RF: 0 polyethylene glycol 3350 [Miralax] 17 gram Powder In Packet 17 g PO DAILY PRN (Reason: Constipation) RF: 0 sennosides-docusate sodium [Senna-S] 8.6-50 mg Tablet 1 tab PO DAILY PRN (Reason: Constipation) RF: 0 zinc sulfate 220 mg Tablet 220 mg PO DAILY RF: 0 nystatin 100,000 unit/gram Cream 1 applic TOPICAL BID RF: 0 Humulin R Regular U-100 Insuln 100 unit/mL Solution 0 unit SUBCUT TIDM RF: 0 docusate sodium 100 mg Capsule 100 mg PO BID PRN (Reason: Constipation) RF: 0 gabapentin 300 mg Capsule 300 mg PO HS RF: 0 Humalog Mix 75-25(U-100)Insuln 100 unit/mL (75-25) Suspension 18 unit SUBCUT TIDM RF: 0 melatonin 3 mg Capsule 6 mg PO HS RF: 0 hydrocortisone [Cortef] 5 mg tablet 10 mg PO .QBREAKFAST RF: 0 spironolactone 25 mg tablet 50 mg PO BID RF: 0 Admission Data Admit Date/Time: 07/25/19 00:48 Attending Provider: Roosevelt Ramos Admit Provider: Bela Farmer Primary Care Provider: Stoney Nix Other Providers: Bela Farmer ; Bora Klein ; Bentley Yusuf ; Zac Rosales Other Interventions: Discharge Summary Assessment (RN) Last Done: 07/30/19 06:23 DC Date/Time DO NOT enter until pt leaves facility: 07/30/19 06:27 Coding Level of Care Code None Diagnoses Cardiac arrest I46.9 Lactic acidosis E87.2 Acute hepatic encephalopathy K72.00 Acute renal insufficiency N28.9 Candidal UTI (urinary tract infection) B37.49 Liver cirrhosis K74.60 Ascites presence: unspecified Hepatic cirrhosis type: unspecified hepatic cirrhosis Addisons disease E27.1 Hypothyroidism E03.9 Hypothyroidism type: acquired Diabetic peripheral neuropathy associated with type 1 diabetes mellitus E10.42 Thrombocytopenia D69.6 Coagulopathy D68.9 Anorexia R63.0 Severe protein-calorie malnutrition E43 Vitamin K deficiency E56.1 Hyponatremia E87.1 Back pain M54.5 Back pain laterality: bilateral Back pain location: low back pain Chronicity: acute Sciatica presence: without sciatica Candidiasis of mouth and esophagus B37.81; B37.0 DVT prophylaxis Z29.9
== END 2019-07-30 06:27 | disposition short-term general hospital (02) | DRG 441 ==
LOC: ED 22:07 → 1E 07-25 00:48 → SUATTDRO 07-25 00:48 → 1E 07-25 01:28 → 2N 07-27 13:02 → 1E 07-29 23:37